=== PATIENT | female | born 1945 | race Caucasian/White ===

== ENCOUNTER 2016-08-16 09:43 | Inpatient (IN) | payer MEDICARE, OTHER ==
[2016-08-16] MEDS ORDERED: ACETAMINOPHEN TAB 500 MG TAB PO STA (09:55)
[2016-08-16] MEDS ORDERED: IPRATROPIUM-ALBUTEROL 3 ML NEB INHALATION STA (09:55)
[2016-08-16] MEDS ORDERED: DILTIAZEM 125 MG in SODIUM CHLORIDE 0.9% 100 ML IV ONE (09:58)
--- NOTE | 2016-08-16 09:58 | ED ---
General Adult HPI - General Chief complaint: Shortness of Breath Stated complaint: MAURICE Time Seen by Provider: 08/16/16 09:51 Source: patient, EMS, RN notes reviewed Mode of arrival: EMS Limitations: no limitations - History of Present Illness Initial comments: Patient is a pleasant 70-year-old female presenting to the emergency department with reported difficulty in breathing. Patient is a poor historian. Patient has no complaints. Patient does admit to coughing somewhat recently. EMS reports patient appeared short of breath and had pulse ox 67% on room air that improve with nebulizer treatment. Unclear if there is a history of atrial fibrillation. - Related Data Home Medications Medication Instructions Recorded Confirmed Cholecalciferol [Vitamin D3] 2,000 unit PO DAILY 08/07/15 08/16/16 Escitalopram [Lexapro] 20 mg PO HS 08/07/15 08/16/16 Furosemide [Lasix] 40 mg PO DAILY 08/07/15 08/16/16 Oxybutynin Chloride [Ditropan] 5 mg PO TID@0700,1500,2300 08/07/15 08/16/16 Simvastatin [Zocor] 80 mg PO HS 08/07/15 08/16/16 Nystatin 100,000 Unit/gm Powd 1 applic TOPICAL BID PRN 08/16/16 08/16/16 [Mycostatin Powder] Robafen Dm Liquid 5 - 10 ml PO Q6H PRN 08/16/16 08/16/16 risperiDONE [RisperDAL] 2 mg PO HS 08/16/16 08/16/16 Allergies Allergy/AdvReac Type Severity Reaction Status Date / Time No Known Allergies Allergy Verified 08/07/15 18:17 Review of Systems ROS Statement: Those systems with pertinent positive or pertinent negative responses have been documented in the HPI. ROS Other: All systems not noted in ROS Statement are negative. Constitutional: Denies: fever, chills Eyes: Denies: eye pain ENT: Denies: ear pain Respiratory: Reports: cough. Denies: dyspnea Cardiovascular: Denies: chest pain Endocrine: Denies: fatigue Gastrointestinal: Denies: abdominal pain Genitourinary: Denies: dysuria Musculoskeletal: Denies: back pain Skin: Denies: rash Neurological: Denies: headache Past Medical History Past Medical History: Hyperlipidemia History of Any Multi-Drug Resistant Organisms: None Reported Past Surgical History: No Surgical Hx Reported Past Psychological History: Depression Smoking Status: Current every day smoker Past Alcohol Use History: None Reported Past Drug Use History: None Reported General Exam Limitations: no limitations General appearance: alert, in no apparent distress Head exam: Present: atraumatic Eye exam: Present: normal appearance, PERRL ENT exam: Present: normal oropharynx Neck exam: Present: normal inspection Respiratory exam: Present: wheezes, rales Cardiovascular Exam: Present: tachycardia, irregular rhythm GI/Abdominal exam: Present: soft. Absent: tenderness Extremities exam: Present: pedal edema. Absent: calf tenderness Neurological exam: Present: alert, oriented X3. Absent: motor sensory deficit Expanded Patient oriented to: Present: person, place, time Motor strength exam: RUE: 5, LUE: 5, RLE: 5, LLE: 5 Psychiatric exam: Present: normal affect, normal mood Skin exam: Absent: rash Course Vital Signs 08/16/16 08/16/16 08/16/16 09:49 10:38 10:43 Temperature 97.0 F L 101.3 F H Pulse Rate 66 135 H 100 Respiratory 20 20 Rate Blood Pressure 200/112 O2 Sat by Pulse 77 L Oximetry 08/16/16 08/16/16 08/16/16 10:51 11:13 12:00 Temperature 99.5 F Pulse Rate 134 H 113 H 108 H Respiratory 20 20 Rate Blood Pressure 150/90 111/48 O2 Sat by Pulse 90 L 88 L Oximetry EKG Findings - EKG Comments: EKG Findings:: A. fib with RVR, rate 133. QRS 72. QT to 92. QTC 434. Right axis. Septal Q waves. Low QRS voltage. No acute ST change. Medical Decision Making - Medical Decision Making Patient reexamined and updated. Patient clinically is felt more have pneumonia over CHF especially with elevated temperature. Case was discussed in detail with Dr. greer, who will admit for hospital call. Patient does meet sepsis criteria. Admission orders written. IV antibiotics started. - Lab Data Result diagrams: 08/16/16 10:00 08/16/16 10:00 Lab Results 08/16/16 08/16/16 08/16/16 Range/Units 10:00 10:00 10:00 WBC 5.1 (3.8-10.6) k/uL RBC 5.72 H (3.80-5.40) m/uL Hgb 18.0 H (11.4-16.0) gm/dL Hct 57.1 H (34.0-46.0) % MCV 99.8 (80.0-100.0) fL MCH 31.5 (25.0-35.0) pg MCHC 31.6 (31.0-37.0) g/dL RDW 14.0 (11.5-15.5) % Plt Count 146 L (150-450) k/uL Neutrophils % 82 % Lymphocytes % 8 % Monocytes % 7 % Eosinophils % 1 % Basophils % 2 % Neutrophils # 4.2 (1.3-7.7) k/uL Lymphocytes # 0.4 L (1.0-4.8) k/uL Monocytes # 0.3 (0-1.0) k/uL Eosinophils # 0.0 (0-0.7) k/uL Basophils # 0.1 (0-0.2) k/uL Hypochromasia Slight PT (9.0-12.0) sec INR (<1.1) APTT (22.0-30.0) sec Sodium 138 (137-145) mmol/L Potassium 4.5 (3.5-5.1) mmol/L Chloride 100 (98-107) mmol/L Carbon Dioxide 31 H (22-30) mmol/L Anion Gap 7 mmol/L BUN 20 H (7-17) mg/dL Creatinine 0.66 (0.52-1.04) mg/dL Est GFR (MDRD) Af Amer >60 (>60 ml/min/1.73 sqM) Est GFR (MDRD) Non-Af >60 (>60 ml/min/1.73 sqM) Glucose 119 H (74-99) mg/dL Plasma Lactic Acid Raphael (0.7-2.0) mmol/L Calcium 8.0 L (8.4-10.2) mg/dL Total Bilirubin 0.9 (0.2-1.3) mg/dL AST 105 H (14-36) U/L ALT 125 H (9-52) U/L Alkaline Phosphatase 76 (38-126) U/L Total Creatine Kinase 92 (30-135) U/L CK-MB (CK-2) 1.7 (0.0-2.4) ng/mL CK-MB (CK-2) Rel Index 1.8 Troponin I 0.029 (0.000-0.034) ng/mL NT-Pro-B Natriuret Pep pg/mL Total Protein 6.1 L (6.3-8.2) g/dL Albumin 3.4 L (3.5-5.0) g/dL Influenza Type A RNA (Not Detectd) Influenza Type B (PCR) (Not Detectd) 08/16/16 08/16/16 08/16/16 Range/Units 10:00 10:00 10:30 WBC (3.8-10.6) k/uL RBC (3.80-5.40) m/uL Hgb (11.4-16.0) gm/dL Hct (34.0-46.0) % MCV (80.0-100.0) fL MCH (25.0-35.0) pg MCHC (31.0-37.0) g/dL RDW (11.5-15.5) % Plt Count (150-450) k/uL Neutrophils % % Lymphocytes % % Monocytes % % Eosinophils % % Basophils % % Neutrophils # (1.3-7.7) k/uL Lymphocytes # (1.0-4.8) k/uL Monocytes # (0-1.0) k/uL Eosinophils # (0-0.7) k/uL Basophils # (0-0.2) k/uL Hypochromasia PT (9.0-12.0) sec INR (<1.1) APTT (22.0-30.0) sec Sodium (137-145) mmol/L Potassium (3.5-5.1) mmol/L Chloride (98-107) mmol/L Carbon Dioxide (22-30) mmol/L Anion Gap mmol/L BUN (7-17) mg/dL Creatinine (0.52-1.04) mg/dL Est GFR (MDRD) Af Amer (>60 ml/min/1.73 sqM) Est GFR (MDRD) Non-Af (>60 ml/min/1.73 sqM) Glucose (74-99) mg/dL Plasma Lactic Acid Raphael 1.2 (0.7-2.0) mmol/L Calcium (8.4-10.2) mg/dL Total Bilirubin (0.2-1.3) mg/dL AST (14-36) U/L ALT (9-52) U/L Alkaline Phosphatase (38-126) U/L Total Creatine Kinase (30-135) U/L CK-MB (CK-2) (0.0-2.4) ng/mL CK-MB (CK-2) Rel Index Troponin I (0.000-0.034) ng/mL NT-Pro-B Natriuret Pep 2070 pg/mL Total Protein (6.3-8.2) g/dL Albumin (3.5-5.0) g/dL Influenza Type A RNA Not Detected (Not Detectd) Influenza Type B (PCR) Not Detected (Not Detectd) 08/16/16 Range/Units 11:14 WBC (3.8-10.6) k/uL RBC (3.80-5.40) m/uL Hgb (11.4-16.0) gm/dL Hct (34.0-46.0) % MCV (80.0-100.0) fL MCH (25.0-35.0) pg MCHC (31.0-37.0) g/dL RDW (11.5-15.5) % Plt Count (150-450) k/uL Neutrophils % % Lymphocytes % % Monocytes % % Eosinophils % % Basophils % % Neutrophils # (1.3-7.7) k/uL Lymphocytes # (1.0-4.8) k/uL Monocytes # (0-1.0) k/uL Eosinophils # (0-0.7) k/uL Basophils # (0-0.2) k/uL Hypochromasia PT 12.1 H (9.0-12.0) sec INR 1.2 (<1.1) APTT 23.6 (22.0-30.0) sec Sodium (137-145) mmol/L Potassium (3.5-5.1) mmol/L Chloride (98-107) mmol/L Carbon Dioxide (22-30) mmol/L Anion Gap mmol/L BUN (7-17) mg/dL Creatinine (0.52-1.04) mg/dL Est GFR (MDRD) Af Amer (>60 ml/min/1.73 sqM) Est GFR (MDRD) Non-Af (>60 ml/min/1.73 sqM) Glucose (74-99) mg/dL Plasma Lactic Acid Raphael (0.7-2.0) mmol/L Calcium (8.4-10.2) mg/dL Total Bilirubin (0.2-1.3) mg/dL AST (14-36) U/L ALT (9-52) U/L Alkaline Phosphatase (38-126) U/L Total Creatine Kinase (30-135) U/L CK-MB (CK-2) (0.0-2.4) ng/mL CK-MB (CK-2) Rel Index Troponin I (0.000-0.034) ng/mL NT-Pro-B Natriuret Pep pg/mL Total Protein (6.3-8.2) g/dL Albumin (3.5-5.0) g/dL Influenza Type A RNA (Not Detectd) Influenza Type B (PCR) (Not Detectd) - Radiology Data Radiology results: image reviewed (Citrate has interstitial changes, more so on the right side) Critical Care Time Critical Care Time: Yes Total Critical Care Time: 32 Disposition Clinical Impression: Pneumonia, Sepsis Disposition: ADMITTED IP TO THIS HOSP Condition: Serious Time of Disposition: 12:16
[2016-08-16 10:13] LABS: Basophils # (A) 0.1 k/uL (0-0.2); Basophils % (A) 2 %; CH 31.5; CHCM 31.8; Eosinophils % (A) 1 %; HCT 57.1 % (34.0-46.0); HDW 2.71; Hypochromasia Slight; Luc # (Auto) 0.07; Luc % (Auto) 1; Lymphocytes # (A) 0.4 k/uL (1.0-4.8); Lymphocytes % (A) 8 %; MCH 31.5 pg (25.0-35.0); MCHC 31.6 g/dL (31.0-37.0); MCV 99.8 fL (80.0-100.0); Mean Platelet Volume 7.7; Monocytes # (A) 0.3 k/uL (0-1.0); Monocytes % (A) 7 %; Neutrophils # (A) 4.2 k/uL (1.3-7.7); Neutrophils % (A) 82 %; RBC 5.72 m/uL (3.80-5.40); WBC 5.1 k/uL (3.8-10.6)
[2016-08-16 10:26] LABS: ALT 125 U/L (9-52); AST 105 U/L (14-36); Alkaline Phosphatase 76 U/L (38-126); Anion Gap 7 mmol/L; Blood Urea Nitrogen 20 mg/dL (7-17); Carbon Dioxide 31 mmol/L (22-30); Chloride 100 mmol/L (98-107); Glucose 119 mg/dL (74-99); Non-African American GFR(MDRD) >60 (>60 ml/min/1.73 sqM); Sodium 138 mmol/L (137-145); Total Bilirubin 0.9 mg/dL (0.2-1.3); Total Protein 6.1 g/dL (6.3-8.2)
[2016-08-16 10:34] LABS: Potassium 4.5 mmol/L (3.5-5.1)
--- NOTE | 2016-08-16 10:34 | XR ---
EXAMINATION TYPE: XR chest 2V DATE OF EXAM: 08/16/2016 10:29 AM COMPARISON: 09/28/2011 HISTORY: Shortness of breath FINDINGS: Noted is pulmonary venous congestion with scattered infiltrates. There is also cardiomegaly and small effusions. IMPRESSION: Findings felt to reflect congestive failure. Infiltrates of other etiology are not excluded. Clinical correlation and progress studies are recommended.
[2016-08-16 10:49] LABS: Creatine Kinase MB 1.7 ng/mL (0.0-2.4); Troponin I 0.029 ng/mL (0.000-0.034)
[2016-08-16 11:55] LABS: INR 1.2 (<1.1); Prothrombin Time 12.1 sec (9.0-12.0)
[2016-08-16 11:56] LABS: Partial Thromboplastin Time 23.6 sec (22.0-30.0)
[2016-08-16] MEDS ORDERED: IPRATROPIUM-ALBUTEROL 3 ML NEB INHALATION PRN (12:18)
[2016-08-16] MEDS ORDERED: PNEUMONIA PROTOCOL UTILIZED 1 EACH MISC PO PRN (12:18)
[2016-08-16] MEDS ORDERED: AZITHROMYCIN 500 MG in SODIUM CHLORIDE 0.9% 250 ML IVPB STA (12:20)
[2016-08-16 12:48] LABS: Appearance,Urine Clear (Clear); Bilirubin,Urine Negative (Negative); Glucose,Urine (UA) Negative (Negative); Ketones,Urine Negative (Negative); Leukocyte Esterase,Urine Negative (Negative); Mucus,Urine Rare /hpf; Nitrite,Urine Negative (Negative); PH, Urine 5.5 (5.0-8.0); Particle Count 4941; Protein,Urine Trace (Negative); RBC,Urine 1 /hpf (0-5); Specific Gravity,Urine 1.013 (1.001-1.035); Squamous Epithelial Cell,Urine 1 /hpf (0-4); UA Billing (MACRO vs. MICRO) MICRO; WBC,Urine 1 /hpf (0-5)
[2016-08-16] MEDS: IPRATROPIUM-ALBUTEROL 3 ML NEB INHALATION SCH ×2 (15:09→19:49)
[2016-08-16 15:35] LABS: ABG HCO3 29 mmol/L (21-25); ABG PCO2 58 mmHg (35-45); ABG PH 7.33 (7.35-7.45); ABG PO2 69 mmHg (83-108); ABG TCO2 31 mmol/L (19-24)
[2016-08-16 15:36] LABS: ABG Base Excess 3.8 mmol/L
[2016-08-16 16:58] LABS: Creatine Kinase MB 1.8 ng/mL (0.0-2.4); Troponin I 0.012 ng/mL (0.000-0.034)
[2016-08-16] MEDS ORDERED: guaiFENesin-DM 100-10MG/5ML 10 ML CUP PO PRN (21:38)
[2016-08-16] MEDS ORDERED: NYSTATIN 100,000 UNIT/GM POWD 15 GM TOPICAL PRN (21:38)
[2016-08-16] MEDS: ENOXAPARIN 100 MG/ML SYRINGE SQ SCH (21:41)
[2016-08-16 22:04] LABS: Creatine Kinase MB 2.1 ng/mL (0.0-2.4); Troponin I 0.012 ng/mL (0.000-0.034)
[2016-08-17] MEDS ORDERED: ACETAMINOPHEN IV (For NPO) 1,000 MG in EMPTY BAG 1 BAG IVPB SCH
[2016-08-17] MEDS: METOPROLOL TARTRATE 25 MG TAB PO SCH ×3 (01:06→19:49)
[2016-08-17] MEDS: DILTIAZEM 125 MG in SODIUM CHLORIDE 0.9% 100 ML IV SCH ×2 (01:06→14:26)
[2016-08-17] MEDS ORDERED: FUROSEMIDE 10 MG/ML 4 ML VIAL IV SCH (02:00)
[2016-08-17] MEDS: OXYBUTYNIN CHLORIDE 5 MG TAB PO SCH ×3 (06:21→19:49)
[2016-08-17] MEDS: IPRATROPIUM-ALBUTEROL 3 ML NEB INHALATION SCH ×6 (07:46→23:24)
[2016-08-17] MEDS ORDERED: ACETAMINOPHEN TAB 325 MG TAB PO PRN (09:10)
[2016-08-17] MEDS: ENOXAPARIN 100 MG/ML SYRINGE SQ SCH ×2 (09:27→19:49)
[2016-08-17] MEDS: AZITHROMYCIN 500 MG TAB PO SCH (09:27)
[2016-08-17] MEDS: CHOLECALCIFEROL 1,000 UNIT TAB PO SCH (09:28)
[2016-08-17] MEDS: FUROSEMIDE 10 MG/ML 4 ML VIAL IV SCH ×3 (09:28→21:55)
--- NOTE | 2016-08-17 11:54 | XR ---
EXAMINATION TYPE: XR chest 1V portable DATE OF EXAM: 08/17/2016 11:24 AM COMPARISON: Prior chest x-ray July HISTORY: Pneumonia TECHNIQUE: Single frontal view of the chest is obtained. FINDINGS: Heart is enlarged. Perihilar airspace disease is present. Prominent lung volume may be ind icative of underlying COPD. No pneumothorax or pleural effusion. There are overlying cardiac leads. IMPRESSION: Findings may represent congestive heart failure rather than pneumonia.
--- NOTE | 2016-08-17 15:14 | P.CRDCN ---
History of Present Illness Consult date: 08/17/16 Requesting physician: Bo Dior Consult reason: atrial fibrillation Chief complaint: Shortness of breath History of present illness: This is a 70-year-old female, most of the history was taken from the medical record as the patient is not able to give a detailed history. She was supposedly brought to the hospital with symptoms of progressively worsening shortness of breath. On EMS arrival patient was found to have an oxygen saturation in the 60s. This seemed to improve after given nebulizers and oxygen. EKG on arrival here showed atrial fibrillation with a rapid ventricular response, occasional PVC. Patient does not appear to have any prior history of atrial fibrillation. For this reason a cardiology consultation was requested. was initiated on IV Cardizem along with subcu Lovenox through the night last night. This morning her heart rate in the 70s, continues to be in A. fib. Blood pressure in the 70-80 systolic range. IV Cardizem has been discontinued. We will give the patient 2 doses of IV Lanoxin and then initiate by mouth Lanoxin from tomorrow. Chest x-ray reveals findings reflect congestive heart failure. Infiltrates not excluded. Laboratory data was reviewed, white blood cell count 5.1, hemoglobin 18.0, d- dimer 0.88. Blood gases PH 7.3, pCO2 58, pO2 69, HCO3 29. Total CO2 31. Sodium 138, potassium 4.5, BUN 20, creatinine 0.6. AST 105, ALT 125, on admission her AST and ALT were normal. Troponins 0.029, 0.012, 0.012. BNP level 2070. TSH 0.721. Influenza A and B-. Patient is currently on IV antibiotics for possible pneumonia. Lovenox. Patient is currently on a BiPAP, sitter is at the bedside. Past Medical History Past Medical History: COPD, Hyperlipidemia Additional Past Medical History / Comment(s): Pt recently admitted 08/07/15 to [facility] with hypokalemia, hypomagnesemia, metabolic encephalopathy. Other HX: anemia, hypoalbuminemia, protein calorie malnutrition, past electrolyte disturbances, 2012 abdominal wall cellulitis. History of Any Multi-Drug Resistant Organisms: None Reported Past Surgical History: Tubal Ligation Past Anesthesia/Blood Transfusion Reactions: No Reported Reaction Past Psychological History: Bipolar, Depression, Schizophrenia Additional Psychological History / Comment(s): Pt resides at [place]. She uses no assistive device. She gets to appts by the [facility] Smoking Status: Current every day smoker Past Alcohol Use History: Rare Additional Past Alcohol Use History / Comment(s): Pt started smoking in 1971 and is a ppd smoker. Past Drug Use History: None Reported - Past Family History Father Family Medical History: No Reported History Additional Family Medical History / Comment(s): Pt remembers her father as being healthy. She states he lived to be quite old but does not recall his age at the time of his . Mother Additional Family Medical History / Comment(s): Pt recalls her mother was obese. Medications and Allergies Home Medications Medication Instructions Recorded Confirmed Type Cholecalciferol [Vitamin D3] 2,000 unit PO DAILY 08/07/15 08/16/16 History Escitalopram [Lexapro] 20 mg PO HS 08/07/15 08/16/16 History Furosemide [Lasix] 40 mg PO DAILY 08/07/15 08/16/16 History Oxybutynin Chloride [Ditropan] 5 mg PO TID@0700,1500,2300 08/07/15 08/16/16 History Simvastatin [Zocor] 80 mg PO HS 08/07/15 08/16/16 History Nystatin 100,000 Unit/gm Powd 1 applic TOPICAL BID PRN 08/16/16 08/16/16 History [Mycostatin Powder] Robafen Dm Liquid 5 - 10 ml PO Q6H PRN 08/16/16 08/16/16 History risperiDONE [RisperDAL] 2 mg PO HS 08/16/16 08/16/16 History Allergies Allergy/AdvReac Type Severity Reaction Status Date / Time No Known Allergies Allergy Verified 08/07/15 18:17 Physical Exam Vitals: Vital Signs Temp Pulse Pulse Resp BP BP BP 08/17/16 13:06 75 08/17/16 12:51 75 08/17/16 11:20 98.0 F 76 19 72/41 91/58 08/17/16 07:58 88 08/17/16 07:51 88 08/17/16 07:50 95 24 140/71 08/17/16 03:03 97.3 F L 79 37 H 113/74 08/17/16 01:13 98 F 08/17/16 00:19 100.2 F H 08/17/16 00:00 101.4 F H 76 31 H 161/65 08/16/16 20:43 98.7 F 137 H 20 169/88 08/16/16 20:00 100 F H 121 H 29 H 144/71 08/16/16 16:00 98.1 F 109 H 21 128/78 08/16/16 15:36 96 08/16/16 15:17 115 H Pulse Ox 08/17/16 13:06 08/17/16 12:51 08/17/16 11:20 93 L 08/17/16 07:58 08/17/16 07:51 08/17/16 07:50 93 L 08/17/16 03:03 91 L 08/17/16 01:13 08/17/16 00:19 08/17/16 00:00 91 L 08/16/16 20:43 93 L 08/16/16 20:00 93 L 08/16/16 16:00 94 L 08/16/16 15:36 08/16/16 15:17 Intake and Output 08/16/16 08/17/16 08/17/16 22:59 06:59 14:59 Intake Total 406.25 560 125 Output Total 50 Balance 356.25 560 125 Intake: IV 40 560 0.9% NS @ 10 80 ACETAMINOPHEN IV (For NPO 400 ) 1,000 mg In Empty Bag 1 bag @ 400 mls/hr IVPB Q6HR [facility] Rx#:[id number] Diltiazem 125 mg In 40 80 Sodium Chloride 0.9% 100 ml @ 5 MG/HR 5 mls/hr IV .Q24H [facility] Rx#:[id number] Intake, IV Titration 366.25 125 Amount Azithromycin 500 mg In 15 Sodium Chloride 0.9% 250 ml @ 125 mls/hr IVPB ONCE [facility] Rx#:[id number] Diltiazem 125 mg In 125 Sodium Chloride 0.9% 100 ml @ 10 MG/HR 10 mls/hr IV .[id number] [facility] Rx#: [id number] Diltiazem 125 mg In 51.25 Sodium Chloride 0.9% 100 ml @ 5 MG/HR 5 mls/hr IV .Q24H [facility] Rx#:[id number] cefTRIAXone 1,000 mg In 250 Sodium Chloride 0.9% 50 ml @ 100 mls/hr IVPB ONCE STA Rx#:[id number] cefTRIAXone 1,000 mg In 50 Sodium Chloride 0.9% 50 ml @ 100 mls/hr IVPB Q24HR [facility] Rx#:[id number] Output: Urine 50 Other: Voiding Method Incontinent Diaper Diaper Incontinent Incontinent # Voids 1 1 Weight 124.5 kg PHYSICAL EXAMINATION: HEENT: [Head is atraumatic, normocephalic. Pupils equal, round. Neck is supple. There is elevated jugular venous pressure.] HEART EXAMINATION: S1 and S2 irregularly irregular systolic murmur is heard. CHEST EXAMINATION: Lungs reveal scattered coarse rhonchi and wheezing throughout. ABDOMEN: [ Soft, obese, nontender. Bowel sounds are heard. No organomegaly noted ]. EXTREMITIES:[ 2+ peripheral pulses with trace evidence of peripheral edema and no calf tenderness noted]. NEUROLOGIC [patient is awake, alert and confused. Results 08/16/16 10:00 08/16/16 10:00 Cardiac Enzymes 08/16/16 08/16/16 Range/Units 15:55 21:21 CK-MB (CK-2) 1.8 2.1 (0.0-2.4) ng/mL Troponin I 0.012 0.012 (0.000-0.034) ng/mL Current Medications Generic Name Dose Route Start Last Admin Trade Name Freq PRN Reason Stop Dose Admin Acetaminophen 650 mg 08/17/16 09:10 08/17/16 09:26 Tylenol Tab PO 650 mg Q6HR PRN Administration Fever and/ or Pain Albuterol/Ipratropium 3 ml 08/16/16 16:00 08/17/16 12:50 Duoneb 0.5 Mg-3 Mg/3 Ml Soln INHALATION 3 ml RT-QID RENE Administration Albuterol/Ipratropium 3 ml 08/16/16 12:18 08/16/16 13:17 Duoneb 0.5 Mg-3 Mg/3 Ml Soln INHALATION 3 ml RT-Q4H PRN Administration shortness of breath Atorvastatin Calcium 40 mg 08/17/16 21:00 Lipitor PO HS RENE Azithromycin 500 mg 08/17/16 09:00 08/17/16 09:27 Zithromax PO 500 mg DAILY RENE Administration Cholecalciferol 2,000 unit 08/17/16 12:00 08/17/16 09:28 Vitamin D3 PO 2,000 unit DAILY@1200 RENE Administration Enoxaparin Sodium 100 mg 08/16/16 21:00 08/17/16 09:27 Lovenox SQ 100 mg Q12HR RENE Administration Furosemide 40 mg 08/17/16 10:00 08/17/16 09:28 Lasix IV 40 mg Q6H RENE Administration Guaifenesin/Dextromethorphan 5 ml 08/16/16 21:38 Robitussin Dm PO Q6H PRN Cough Ceftriaxone Sodium 1,000 mg/ 50 mls @ 100 mls/hr 08/17/16 12:00 08/17/16 14: 04 Sodium Chloride IVPB 08/20/16 12:01 100 mls/hr Q24HR RENE Administration Metoprolol Tartrate 25 mg 08/17/16 01:02 08/17/16 09:27 Lopressor PO 25 mg BID RENE Administration Miscellaneous Information 1 each 08/16/16 12:18 Pneumonia Protocol Utilized PO ONCE PRN Per Protocol Nystatin 1 applic 08/16/16 21:38 Mycostatin Powder TOPICAL BID PRN Rash Oxybutynin Chloride 5 mg 08/17/16 07:00 08/17/16 06:21 Ditropan PO 5 mg TID@0700,1500,2300 RENE Administration Sodium Chloride 10 ml 08/16/16 21:00 08/17/16 09:28 Saline Flush IV Not Given BID RENE Intake and Output 08/16/16 08/17/16 08/17/16 22:59 06:59 14:59 Intake Total 406.25 560 125 Output Total 50 Balance 356.25 560 125 Intake: IV 40 560 0.9% NS @ 10 80 ACETAMINOPHEN IV (For NPO 400 ) 1,000 mg In Empty Bag 1 bag @ 400 mls/hr IVPB Q6HR [facility] Rx#:[id number] Diltiazem 125 mg In 40 80 Sodium Chloride 0.9% 100 ml @ 5 MG/HR 5 mls/hr IV .Q24H [facility] Rx#:[id number] Intake, IV Titration 366.25 125 Amount Azithromycin 500 mg In 15 Sodium Chloride 0.9% 250 ml @ 125 mls/hr IVPB ONCE ST[facility] Rx#:[id number] Diltiazem 125 mg In 125 Sodium Chloride 0.9% 100 ml @ 10 MG/HR 10 mls/hr IV .[id number] [facility] Rx#: [id number] Diltiazem 125 mg In 51.25 Sodium Chloride 0.9% 100 ml @ 5 MG/HR 5 mls/hr IV .Q24H [facility] Rx#:[id number] cefTRIAXone 1,000 mg In 250 Sodium Chloride 0.9% 50 ml @ 100 mls/hr IVPB ONCE STA Rx#:[id number] cefTRIAXone 1,000 mg In 50 Sodium Chloride 0.9% 50 ml @ 100 mls/hr IVPB Q24HR [facility] Rx#:[id number] Output: Urine 50 Other: Voiding Method Incontinent Diaper Diaper Incontinent Incontinent # Voids 1 1 Weight 124.5 kg EKG Interpretations (text) EKG shows atrial fibrillation with a rapid ventricular response. Assessment and Plan Plan: Assessment and plan #1 respiratory failure likely a combination of COPD, possible pneumonia. Mild congestive cardiac failure, unsure of LV function. #2 atrial fibrillation, appears to be of new onset. Currently on Lovenox. #3 history of COPD #4 hyperlipidemia #5 chronic depression #6 nicotine dependence #7 hypotension Plan We will obtain an echocardiogram with Doppler study. We will also check a free T4 and TSH level. Discontinue IV Cardizem. We will give the patient doses of IV Lanoxin, and from tomorrow started on oral Lanoxin. Continue beta rhett. Evaluate for one of the newer anticoagulants. Further recommendations to follow. DNP note has been reviewed, I agree with a documented findings and plan of care. Patient was seen and examined.
--- NOTE | 2016-08-17 17:02 | P.CNPUL ---
History of Present Illness Consult date: 08/17/16 Requesting physician: Bo Dior Reason for consult: dyspnea Chief complaint: Shortness of breath. History of present illness: This is a pleasant 70-year-old female patient who resides in an adult foster care setting. She herself is a poor historian. She was brought to the emergency room via EMS after having complaints of increasing shortness of breath and difficulty breathing. Upon arrival she did have a pulse oximeter reading of 67% on room air. She was given bronchodilators and updraft treatmentsshe herself is a poor historian. She does have a history of hyperlipidemia, depression and chronic and ongoing tobacco dependence. No documented history of chronic obstructive pulmonary disease. Her EKG revealed evidence of atrial fibrillation possibly new. Her chest x-ray revealed some perihilar airspace disease along with suspicion of underlying COPD. There is also some vascular congestion and suspected congestive heart failure. Arterial blood gases on 50% FiO2 revealed a PaO2 of 69, pCO2 58, pH 7.33. Her troponins were negative.No leukocytosis.ProBNP 2070. Her liver enzymes are elevated AST 105, ALT 125. Iinfluenza screen is negative. Review of Systems ROS unobtainable: due to mental status Past Medical History Past Medical History: COPD, Hyperlipidemia Additional Past Medical History / Comment(s): Pt recently admitted 08/07/15 to [facility] with hypokalemia, hypomagnesemia, metabolic encephalopathy. Other HX: anemia, hypoalbuminemia, protein calorie malnutrition, past electrolyte disturbances, 2012 abdominal wall cellulitis. History of Any Multi-Drug Resistant Organisms: None Reported Past Surgical History: Tubal Ligation Past Anesthesia/Blood Transfusion Reactions: No Reported Reaction Past Psychological History: Bipolar, Depression, Schizophrenia Additional Psychological History / Comment(s): Pt resides at [place]. She uses no assistive device. She gets to [facility] the [facility] Smoking Status: Current every day smoker Past Alcohol Use History: Rare Additional Past Alcohol Use History / Comment(s): Pt started smoking in 1971 and is a ppd smoker. Past Drug Use History: None Reported - Past Family History Father Family Medical History: No Reported History Additional Family Medical History / Comment(s): Pt remembers her father as being healthy. She states he lived to be quite old but does not recall his age at the time of his . Mother Additional Family Medical History / Comment(s): Pt recalls her mother was obese. Medications and Allergies Home Medications Medication Instructions Recorded Confirmed Type Cholecalciferol [Vitamin D3] 2,000 unit PO DAILY 08/07/15 08/16/16 History Escitalopram [Lexapro] 20 mg PO HS 08/07/15 08/16/16 History Furosemide [Lasix] 40 mg PO DAILY 08/07/15 08/16/16 History Oxybutynin Chloride [Ditropan] 5 mg PO TID@0700,1500,2300 08/07/15 08/16/16 History Simvastatin [Zocor] 80 mg PO HS 08/07/15 08/16/16 History Nystatin 100,000 Unit/gm Powd 1 applic TOPICAL BID PRN 08/16/16 08/16/16 History [Mycostatin Powder] Robafen Dm Liquid 5 - 10 ml PO Q6H PRN 08/16/16 08/16/16 History risperiDONE [RisperDAL] 2 mg PO HS 08/16/16 08/16/16 History Allergies Allergy/AdvReac Type Severity Reaction Status Date / Time No Known Allergies Allergy Verified 08/07/15 18:17 Physical Exam Vitals: Vital Signs Temp Pulse Pulse Resp BP BP BP 08/17/16 16:03 76 08/17/16 15:38 76 08/17/16 13:06 75 08/17/16 12:51 75 08/17/16 11:20 98.0 F 76 19 72/41 91/58 08/17/16 07:58 88 08/17/16 07:51 88 08/17/16 07:50 95 24 140/71 08/17/16 03:03 97.3 F L 79 37 H 113/74 08/17/16 01:13 98 F 08/17/16 00:19 100.2 F H 08/17/16 00:00 101.4 F H 76 31 H 161/65 08/16/16 20:43 98.7 F 137 H 20 169/88 08/16/16 20:00 100 F H 121 H 29 H 144/71 Pulse Ox 08/17/16 16:03 08/17/16 15:38 08/17/16 13:06 08/17/16 12:51 08/17/16 11:20 93 L 08/17/16 07:58 04/20/17 07:51 08/17/16 07:50 93 L 08/17/16 03:03 91 L 08/17/16 01:13 08/17/16 00:19 08/17/16 00:00 91 L 08/16/16 20:43 93 L 08/16/16 20:00 93 L Intake and Output 08/17/16 08/17/16 08/17/16 06:59 14:59 22:59 Intake Total 560 125 Balance 560 125 Intake: IV 560 0.9% NS @ 10 80 ACETAMINOPHEN IV (For NPO 400 ) 1,000 mg In Empty Bag 1 bag @ 400 mls/hr IVPB Q6HR [facility] Rx#:[id number] Diltiazem 125 mg In 80 Sodium Chloride 0.9% 100 ml @ 5 MG/HR 5 mls/hr IV .Q24H [facility] Rx#:[id number] Intake, IV Titration 125 Amount Diltiazem 125 mg In 125 Sodium Chloride 0.9% 100 ml @ 10 MG/HR 10 mls/hr IV .[id number] [facility] Rx#: [id number] Other: Voiding Method Diaper Diaper Incontinent Incontinent # Voids 1 Weight 124.5 kg GENERAL EXAM: Alert, comfortable in no apparent distress. HEAD: Normocephalic. EYES: Normal reaction of pupils, equal size. NOSE: Clear with pink turbinates. THROAT: No erythema or exudates. NECK: No masses, no JVD. CHEST: No chest wall deformity. LUNGS: Equal air entry with HEENT crackles in the posterior bases.. CVS: S1 and S2 normal with no audible murmurs, irregular rhythm. ABDOMEN: Obese, soft, normal bowel sounds, no guarding or rigidity. Extremities: There is trace peripheral edema. No clubbing, no cyanosis. Peripheral pulses are intact. Results - Laboratory Findings CBC and BMP: 08/16/16 10:00 08/16/16 10:00 ABG ABG pH 7.33 (7.35-7.45) L 08/16/16 15:19 ABG pCO2 58 mmHg (35-45) H 08/16/16 15:19 ABG pO2 69 mmHg (83-108) L 08/16/16 15:19 ABG O2 Saturation 92.0 % (94-97) L 08/16/16 15:19 PT/INR, D-dimer PT 12.1 sec (9.0-12.0) H 08/16/16 11:14 INR 1.2 (<1.1) 08/16/16 11:14 D-Dimer 0.88 mg/L FEU (<0.60) H 08/16/16 21:42 Abnormal lab findings: Abnormal Labs 08/16/16 08/16/16 08/16/16 12:19 15:19 21:42 D-Dimer 0.88 H ABG pH 7.33 L ABG pCO2 58 H ABG pO2 69 L ABG HCO3 29 H ABG Total CO2 31 H ABG O2 Saturation 92.0 L Urine Protein Trace H Urine Blood Trace H Hyaline Casts 4 H Urine Mucus Rare H - Diagnostic Findings Chest x-ray: image reviewed Assessment and Plan Plan: impression: #1 Acute hypoxic respiratory failure secondary to suspected diastolic congestive heart failure, possible community-acquired pneumonia, suspect acute exacerbation of chronic obstructive pulmonary disease, chronic and ongoing tobacco dependence. #2 Chronic and ongoing tobacco dependence. #3 Acute on chronic hypercapnic respiratory failure secondary to suspected obesity/hypoventilation syndrome versus obstructive sleep apnea. #4 Morbid obesity. #5 History of depression. #6 Hyperlipidemia. #7 Atrial fibrillation, possibly new onset. Plan: The patient was seen and evaluated by Dr. Cruz. Her chest x-ray and labs were reviewed. We do suspect some component of both acute hypoxic respiratory failure and hypercapnic respiratory failure. we will continue with bronchodilators, Pulmicort inhalations, antibiotics in the form of ceftriaxone and azithromycin. She is on Lovenox for DVT prophylaxis. continue IV Lasix. She would benefit from a follow-up in our office for full pulmonary function testing to evaluate the severity of her suspected COPD and would also benefit from an outpatient sleep study to determine if there is any significant obstructive sleep apnea especially in regards to her atrial fibrillation. Echocardiogram is pending. We will continue to follow make further recommendations based on her clinical status. Time with Patient: Greater than 30
[2016-08-17] MEDS: BUDESONIDE 1 MG/2 ML NEBU INHALATION SCH (19:08)
[2016-08-17] MEDS: ATORVASTATIN 40 MG TAB PO SCH (19:49)
--- NOTE | 2016-08-17 21:34 | HP ---
DATE OF ADMISSION: 08/16/2016 PRESENTING COMPLAINT: Short of breath. HISTORY OF PRESENTING COMPLAINT: This is a 70-year-old patient who is followed by Dr. Jero Mercado, [facility]. Patient is a resident of [place]. She is a smoker. Patient's chronic medical conditions include anemia, hyperlipidemia, some arthritis. Patient came into the ER with difficulty in breathing, got a BiPAP. Not able to speak much. Has got a cough. Not really bringing anything up. Initially pulse ox was down to 67%. Patient was found to be in atrial fibrillation with rapid ventricular rate in the ER. She was started on Lovenox and IV Cardizem. She was also felt to be in CHF and was started on IV Lasix. Patient is very short of breath, on a BiPAP; not able to give much of a history. REVIEW OF SYSTEMS: CONSTITUTIONAL: Weak and tired. HEENT: Nasal congestion. RESPIRATORY: As above, cough, very short of breath. CARDIOVASCULAR: No chest pain. GASTROINTESTINAL: None. GENITOURINARY: None. MUSCULOSKELETAL: Some pain in the joints. DERMATOLOGICAL: None. HEMATOLOGICAL: None. LYMPHATICS: None. PSYCHIATRY: Anxiety. NEUROLOGICAL: None. PAST MEDICAL HISTORY: COPD, hyperlipidemia. PAST SURGICAL HISTORY: Tubal ligation. PAST PSYCHIATRIC HISTORY: Schizophrenia, bipolar. SOCIAL HISTORY: Patient is a resident of [place]. Goes to appointments using [employer]. Has been smoking a pack a day since 1971. Alcohol rarely. FAMILY HISTORY: Reviewed; noncontributory to presentation. HOME MEDICATIONS: 1. Robafen DM liquid 5 to 10 mL q.6 p.r.n. 2. Mycostatin topically b.i.d. p.r.n. 3. Risperdal 2 mg p.o. at bedtime. 4. Zocor 80 mg at bedtime. 5. Vitamin D3 2000 units p.o. daily. 6. Ditropan 5 mg p.o. t.i.d. 7. Lasix 40 mg p.o. daily. 8. Lexapro 20 mg p.o. at bedtime. ALLERGIES: NONE. PHYSICAL EXAMINATION: VITAL SIGNS ON PRESENTATION: T-max 101.3, pulse 134, respiration 20, blood pressure 150/98, pulse ox down to 77% on 2 L. GENERAL APPEARANCE: Obese; BMI if 47.1. Sitting up. Very short of breath on a BiPAP. EYES: Pupils equal. Conjunctivae normal. HEENT: External appearance of nose and ears normal. Oral cavity with dry mucous membrane. NECK: JVD unable to assess. Mass not palpable. RESPIRATORY: Effort increased. Accessory muscles are working. Patient is not able to speak in full sentences. LUNGS: Poor air entry. Prolonged expiration. Scattered crackles. CARDIOVASCULAR: Heart sounds irregular. No edema. ABDOMEN: Distended, soft. Liver and spleen not palpable. LYMPHATIC: No lymph node palpable in neck or axillae. PSYCHIATRY: Patient is anxious-appearing. NEUROLOGICAL: Pupils equal. No facial asymmetry. Moving all 4 limbs. INVESTIGATIONS: White count 5.1, hemoglobin 18. Potassium 4.5. BUN 20, creatinine 0.66. AST 105, ALT 125. Influenza A and B negative. Chest x-ray may show fluid infiltrate, both. ASSESSMENT: 1. Bilateral pneumonia, multi-lobar; suspect Gram-negative organism causing severe sepsis-like picture on presentation with acute hypoxic respiratory failure. 2. Acute chronic obstructive pulmonary disease, severe exacerbation, in a current smoker. 3. Chronic nicotine dependence. 4. Acute metabolic encephalopathy from sepsis. 5. Morbid obesity; body mass index of 47.1. 6. Atrial fibrillation with rapid ventricular rate. PLAN: Patient was started on DuoNeb and IV Solu-Medrol. Also added Lovenox for atrial fibrillation and antibiotics Zithromax and ceftriaxone. BiPAP for oxygen support. Consultations to Cardiology and Pulmonary are done. Overall prognosis is guarded. Patient also given a nicotine patch.
[2016-08-18] MEDS: FUROSEMIDE 10 MG/ML 4 ML VIAL IV SCH ×4 (02:53→21:28)
[2016-08-18] MEDS: IPRATROPIUM-ALBUTEROL 3 ML NEB INHALATION SCH ×6 (03:26→22:31)
[2016-08-18] MEDS: OXYBUTYNIN CHLORIDE 5 MG TAB PO SCH ×3 (06:38→23:45)
[2016-08-18 06:42] LABS: Anion Gap 6 mmol/L; Blood Urea Nitrogen 20 mg/dL (7-17); Calcium 7.9 mg/dL (8.4-10.2); Carbon Dioxide 37 mmol/L (22-30); Chloride 95 mmol/L (98-107); Glucose 84 mg/dL (74-99); Non-African American GFR(MDRD) >60 (>60 ml/min/1.73 sqM); Potassium 4.4 mmol/L (3.5-5.1); Sodium 138 mmol/L (137-145)
[2016-08-18 06:55] LABS: Basophils % (A) 1 %; CH 30.6; CHCM 31.6; Eosinophils % (A) 0 %; HDW 2.82; HGB 17.4 gm/dL (11.4-16.0); Hypochromasia Slight; Luc # (Auto) 0.08; Luc % (Auto) 2; Lymphocytes # (A) 0.6 k/uL (1.0-4.8); Lymphocytes % (A) 15 %; MCH 30.9 pg (25.0-35.0); MCHC 31.7 g/dL (31.0-37.0); MCV 97.7 fL (80.0-100.0); Mean Platelet Volume 7.5; Monocytes # (A) 0.3 k/uL (0-1.0); Monocytes % (A) 7 %; Neutrophils # (A) 2.8 k/uL (1.3-7.7); Neutrophils % (A) 76 %; RBC 5.63 m/uL (3.80-5.40); RDW 13.7 % (11.5-15.5); WBC 3.7 k/uL (3.8-10.6)
[2016-08-18] MEDS: BUDESONIDE 1 MG/2 ML NEBU INHALATION SCH ×2 (09:20→20:37)
[2016-08-18] MEDS: ENOXAPARIN 100 MG/ML SYRINGE SQ SCH ×2 (09:24→21:28)
[2016-08-18] MEDS: AZITHROMYCIN 500 MG TAB PO SCH (09:24)
[2016-08-18] MEDS: CHOLECALCIFEROL 1,000 UNIT TAB PO SCH (13:14)
[2016-08-18] MEDS: METOPROLOL TARTRATE 25 MG TAB PO SCH ×2 (13:14→21:27)
--- NOTE | 2016-08-18 13:48 | P.PN ---
Subjective This is a pleasant 70-year-old female patient who resides in an adult foster care setting. She herself is a poor historian. She was brought to the emergency room via EMS after having complaints of increasing shortness of breath and difficulty breathing. Upon arrival she did have a pulse oximeter reading of 67% on room air. She was given bronchodilators and updraft treatmentsshe herself is a poor historian. She does have a history of hyperlipidemia, depression and chronic and ongoing tobacco dependence. No documented history of chronic obstructive pulmonary disease. Her EKG revealed evidence of atrial fibrillation possibly new. Her chest x-ray revealed some perihilar airspace disease along with suspicion of underlying COPD. There is also some vascular congestion and suspected congestive heart failure. Arterial blood gases on 50% FiO2 revealed a PaO2 of 69, pCO2 58, pH 7.33. Her troponins were negative. No leukocytosis. ProBNP 0. Her liver enzymes are elevated AST 105, ALT 125. Iinfluenza screen is negative. The patient is seen again today 08/18/2016 in follow-up on the selective care unit. She is awake. She is continued on her BiPAP. She continues to be diuresed. Unsure if in a negative balance of the patient is incontinent of urine. Urine and blood cultures revealed no growth. Currently afebrile. No leukocytosis. Objective - Vital Signs Vital signs: Vital Signs Temp 98.7 F 08/18/16 11:51 Pulse 106 H 08/18/16 12:15 Resp 22 08/18/16 11:55 BP 135/64 08/18/16 11:51 Pulse Ox 92 L 08/18/16 11:51 Intake & Output 08/17/16 08/18/16 08/18/16 18:59 06:59 18:59 Intake Total 125 1747 377 Balance 125 1747 377 Weight 117.5 kg 117.5 kg Intake: IV 210 0.9% NS @ 10 160 cefTRIAXone 1,000 mg In 50 Sodium Chloride 0.9% 50 ml @ 100 mls/hr IVPB Q24HR [facility] Rx#:[id number] Intake, IV Titration 125 Amount Diltiazem 125 mg In 125 Sodium Chloride 0.9% 100 ml @ 10 MG/HR 10 mls/hr IV .[id number] [facility] Rx#: [id number] Oral [id number] Other: Voiding Method Diaper Diaper Diaper Incontinent Incontinent Incontinent # Voids 1 1 3 - Exam GENERAL EXAM: Alert, comfortable in no apparent distress. HEAD: Normocephalic. EYES: Normal reaction of pupils, equal size. NOSE: Clear with pink turbinates. THROAT: No erythema or exudates. NECK: No masses, no JVD. CHEST: No chest wall deformity. LUNGS: Equal air entry with HEENT crackles in the posterior bases.. CVS: S1 and S2 normal with no audible murmurs, irregular rhythm. ABDOMEN: Obese, soft, normal bowel sounds, no guarding or rigidity. Extremities: There is trace peripheral edema. No clubbing, no cyanosis. Peripheral pulses are intact. - Labs CBC & Chem 7: 08/18/16 05:54 08/18/16 05:54 Labs: Abnormal Lab Results - Last 24 Hours (Table) 08/18/16 08/18/16 Range/Units 05:54 05:54 WBC 3.7 L (3.8-10.6) k/uL RBC 5.63 H (3.80-5.40) m/uL Hgb 17.4 H (11.4-16.0) gm/dL Hct 55.0 H (34.0-46.0) % Plt Count 124 L (150-450) k/uL Lymphocytes # 0.6 L (1.0-4.8) k/uL Chloride 95 L (98-107) mmol/L Carbon Dioxide 37 H (22-30) mmol/L BUN 20 H (7-17) mg/dL Calcium 7.9 L (8.4-10.2) mg/dL Microbiology - Last 24 Hours (Table) 08/16/16 12:19 Urine Culture - Final Urine,Voided 08/16/16 14:03 Blood Culture - Preliminary Blood No Growth after 24 hours Assessment and Plan Plan: impression: #1 Acute hypoxic respiratory failure secondary to suspected diastolic congestive heart failure, possible community-acquired pneumonia, suspect acute exacerbation of chronic obstructive pulmonary disease, chronic and ongoing tobacco dependence. #2 Chronic and ongoing tobacco dependence. #3 Acute on chronic hypercapnic respiratory failure secondary to suspected obesity/hypoventilation syndrome versus obstructive sleep apnea. #4 Morbid obesity. #5 History of depression. #6 Hyperlipidemia. #7 Atrial fibrillation, possibly new onset. Plan: The patient was seen and evaluated by Dr. Cruz. We do suspect some component of both acute hypoxic respiratory failure and hypercapnic respiratory failure. we will continue with bronchodilators, Pulmicort inhalations, antibiotics in the form of ceftriaxone and azithromycin. Continue IV Lasix. We will continue to follow and make further recommendations based on her clinical status.
--- NOTE | 2016-08-18 16:10 | P.PN ---
Subjective This is a 70-year-old female who is currently on a BiPAP and most of the history was taken from the medical records as the patient is not able to give a detailed history. Review of systems is also very limited. She was apparently brought to the hospital with symptoms of progressively worsening shortness of breath. Upon arrival via EMS the patient was found to have an oxygen saturation in the 60s which did improve after nebulizers and oxygen. EKG on arrival showed atrial fibrillation with rapid ventricular response and occasional PVC. Patient does not have a prior history to our knowledge of atrial fibrillation. The patient was initiated on IV Cardizem along with subcutaneous Lovenox. IV Cardizem has been discontinued. Patient was given IV digoxin yesterday. Upon examination, patient remains on BiPAP but is able to verbalize that she feels she is breathing a bit better. Objective - Vital Signs Vital signs: Vital Signs Temp 98.7 F 08/18/16 11:51 Pulse 106 H 08/18/16 12:15 Resp 22 08/18/16 11:55 BP 135/64 08/18/16 11:51 Pulse Ox 92 L 08/18/16 11:51 Intake & Output 08/17/16 08/18/16 08/18/16 18:59 06:59 18:59 Intake Total 125 1747 377 Balance 125 1747 377 Weight 117.5 kg 117.5 kg Intake: IV 210 0.9% NS @ 10 160 cefTRIAXone 1,000 mg In 50 Sodium Chloride 0.9% 50 ml @ 100 mls/hr IVPB Q24HR [facility] Rx#:[id number] Intake, IV Titration 125 Amount Diltiazem 125 mg In 125 Sodium Chloride 0.9% 100 ml @ 10 MG/HR 10 mls/hr IV .[id number] [facility] Rx#: [id number] Oral [id number] Other: Voiding Method Diaper Diaper Diaper Incontinent Incontinent Incontinent # Voids 1 1 3 - Exam PHYSICAL EXAMINATION: HEENT: Head is atraumatic, normocephalic. Pupils equal, round. Neck is supple. There is no elevated jugular venous pressure. HEART EXAMINATION: Heart sounds irregularly irregular, S1 and S2 with a systolic murmur. CHEST EXAMINATION: Lungs reveal scattered coarse rhonchi and wheezing throughout. No chest wall tenderness is noted on palpation or with deep breathing. ABDOMEN: Soft, obese, nontender. Bowel sounds are heard. No organomegaly noted. EXTREMITIES: 1+ peripheral pulses with no evidence of peripheral edema and no calf tenderness noted. NEUROLOGIC patient is awake, alert and confused. . - Labs CBC & Chem 7: 08/18/16 05:54 08/18/16 05:54 Labs: Abnormal Lab Results - Last 24 Hours (Table) 08/18/16 08/18/16 Range/Units 05:54 05:54 WBC 3.7 L (3.8-10.6) k/uL RBC 5.63 H (3.80-5.40) m/uL Hgb 17.4 H (11.4-16.0) gm/dL Hct 55.0 H (34.0-46.0) % Plt Count 124 L (150-450) k/uL Lymphocytes # 0.6 L (1.0-4.8) k/uL Chloride 95 L (98-107) mmol/L Carbon Dioxide 37 H (22-30) mmol/L BUN 20 H (7-17) mg/dL Calcium 7.9 L (8.4-10.2) mg/dL Microbiology - Last 24 Hours (Table) 08/16/16 12:19 Urine Culture - Final Urine,Voided 08/16/16 14:03 Blood Culture - Preliminary Blood No Growth after 24 hours Assessment and Plan Plan: #1 respiratory failure likely combination of COPD, possible pneumonia and mild congestive heart failure, LV systolic function and no #2 atrial fibrillation, appears to be new onset, persistent currently on Lovenox #3 COPD #4 hyperlipidemia #5 nicotine dependence #6 hypotension We will obtain a 2-D echo. We will check patient's coverage for one of the newer anticoagulant, if Eliquis is covered will start the patient on 5 mg by mouth twice a day and stop Lovenox. We will initiate the patient on by mouth digoxin. Continue IV Lasix. We will follow the patient's renal function, electrolytes and daily weights. Further recommendations to follow. WATER ANALYST note has been reviewed, I agree with a documented findings and plan of care. Patient was seen and examined.
[2016-08-18] MEDS: DIGOXIN 250 MCG TAB PO SCH (16:12)
--- NOTE | 2016-08-18 18:28 | XR ---
EXAMINATION TYPE: XR chest 1V portable DATE OF EXAM: 08/18/2016 6:22 PM COMPARISON: Yesterday HISTORY: Difficulty breathing TECHNIQUE: Single frontal view of the chest is obtained. FINDINGS: There is pulmonary edema. Heart is enlarged. There are chest leads. IMPRESSION: Congestive heart failure with pulmonary edema. No significant change compared to yesterd ay.
[2016-08-18] MEDS: methylPREDNISolone SOD SUCCI 125 MG/2 ML VIAL IV SCH ×2 (18:29→23:45)
[2016-08-18] MEDS: ATORVASTATIN 40 MG TAB PO SCH (21:27)
--- NOTE | 2016-08-18 21:52 | PN ---
DATE OF SERVICE: 08/18/2016 PRESENTING COMPLAINT: Short of breath. INTERVAL HISTORY: This is a patient with multiple medical problems presented with bilateral pneumonia, acute chronic obstructive pulmonary disease exacerbation, severe hypoxic respiratory failure is pretty much been on BiPAP a bit more responsive and when asked, she does want to eat a little bit. Pretty much has been in bed because of the BiPAP. REVIEW OF SYSTEMS: Difficult to obtain as the patient still is quite a bit short of breath. Current medications are reviewed that include: 1. Duoneb. 2. IV ceftriaxone. 3. IV Lasix. On examination, temperature 97.3, pulse 79, respiratory rate 20, blood pressure 102/71, pulse 94% on BiPAP. GENERAL APPEARANCE: Sitting up, short of breath with BiPAP in place. EYES: Pupils equal. Conjunctivae normal. NECK: JVD unable to assess. Mass not palpable. RESPIRATORY: Effort increased. Accessory muscles are working. LUNGS: Poor air entry. Prolonged expiration. Decreased crackles. CARDIOVASCULAR: Heart sounds irregular. No edema. ABDOMEN: Soft, nontender. Liver and spleen not palpable. PSYCHIATRY: Patient able to answer questions by a few words. INVESTIGATIONS: White count 3.7, hemoglobin 17.4. Potassium 4.4. Blood cultures are pending. ASSESSMENT: 1. Bilateral pneumonia, multilobar, suspect gram-negative organism causing severe sepsis-like present on presentation. 2. Acute hypoxic respiratory failure, slow to respond, the patient requiring a BiPAP. 3. Acute severe chronic obstructive pulmonary disease exacerbation in a current smoker, slow to respond. 4. Chronic nicotine dependence. 5. Acute metabolic encephalopathy from sepsis, slow to respond. 6. Morbid obesity, body mass index of 47.1. 7. Atrial fibrillation with rapid ventricular rate. PLAN: Continue antibiotics. Nebulized bronchodilators. Patient is still chronically ill. We will try to give her some Ensure with a straw. Care was discussed with the nurse.
[2016-08-19] MEDS: IPRATROPIUM-ALBUTEROL 3 ML NEB INHALATION SCH ×6 (02:30→23:36)
[2016-08-19] MEDS: FUROSEMIDE 10 MG/ML 4 ML VIAL IV SCH ×2 (03:43→08:36)
[2016-08-19 06:23] LABS: Glucose,Whole Blood 133 mg/dL (75-99)
[2016-08-19] MEDS: OXYBUTYNIN CHLORIDE 5 MG TAB PO SCH ×3 (07:03→23:09)
[2016-08-19] MEDS: INSULIN LISPRO (humaLOG) 300 UNIT/3 ML VIAL SQ SCH ×4 (07:04→21:30)
[2016-08-19] MEDS: BUDESONIDE 1 MG/2 ML NEBU INHALATION SCH ×2 (08:34→20:00)
[2016-08-19] MEDS: CHOLECALCIFEROL 1,000 UNIT TAB PO SCH (08:36)
[2016-08-19] MEDS: ENOXAPARIN 100 MG/ML SYRINGE SQ SCH (08:36)
[2016-08-19] MEDS: DIGOXIN 250 MCG TAB PO SCH (08:36)
[2016-08-19] MEDS: METOPROLOL TARTRATE 25 MG TAB PO SCH ×2 (08:36→21:31)
[2016-08-19] MEDS: AZITHROMYCIN 500 MG TAB PO SCH (08:37)
[2016-08-19] MEDS: methylPREDNISolone SOD SUCCI 125 MG/2 ML VIAL IV SCH (08:37)
[2016-08-19 12:06] LABS: Glucose,Whole Blood 238 mg/dL (75-99)
[2016-08-19 12:51] LABS: Blood Urea Nitrogen 22 mg/dL (7-17); Calcium 8.3 mg/dL (8.4-10.2); Chloride 94 mmol/L (98-107); Glucose 155 mg/dL (74-99); Non-African American GFR(MDRD) >60 (>60 ml/min/1.73 sqM); Potassium 4.2 mmol/L (3.5-5.1); Sodium 140 mmol/L (137-145)
[2016-08-19 12:58] LABS: Anion Gap 4 mmol/L
[2016-08-19 13:06] LABS: Carbon Dioxide 42 mmol/L (22-30)
--- NOTE | 2016-08-19 15:13 | P.PN ---
Subjective This is a 70-year-old female who is currently on a BiPAP and most of the history was taken from the medical records as the patient is not able to give a detailed history. Review of systems is also very limited. She was apparently brought to the hospital with symptoms of progressively worsening shortness of breath. Upon arrival via EMS the patient was found to have an oxygen saturation in the 60s which did improve after nebulizers and oxygen. EKG on arrival showed atrial fibrillation with rapid ventricular response and occasional PVC. Patient does not have a prior history to our knowledge of atrial fibrillation. The patient was initiated on IV Cardizem along with subcutaneous Lovenox. IV Cardizem has been discontinued. Patient was treated on oral digoxin yesterday. Upon examination, is more alert today. She feels she is breathing better. She denies any complaints of chest discomfort or dizziness.. Objective - Vital Signs Vital signs: Vital Signs Temp 97.0 F L 08/19/16 11:05 Pulse 92 08/19/16 12:43 Resp 20 08/19/16 11:28 BP 110/58 08/19/16 11:05 Pulse Ox 91 L 08/19/16 11:28 Intake & Output 08/18/16 08/19/16 08/19/16 18:59 06:59 18:59 Intake Total 377 470 Balance 377 470 Weight 117.5 kg 113 kg Intake: IV 130 0.9% NS @ 10 80 cefTRIAXone 1,000 mg In 50 Sodium Chloride 0.9% 50 ml @ 100 mls/hr IVPB Q24HR [facility] Rx#:[id number] Oral 377 340 Other: Voiding Method Diaper Diaper Diaper Incontinent Incontinent Incontinent # Voids 3 1 - Exam PHYSICAL EXAMINATION: HEENT: Head is atraumatic, normocephalic. Pupils equal, round. Neck is supple. There is no elevated jugular venous pressure. HEART EXAMINATION: Heart sounds irregularly irregular, S1 and S2 with a systolic murmur. CHEST EXAMINATION: Lungs reveal scattered coarse rhonchi and wheezing throughout. No chest wall tenderness is noted on palpation or with deep breathing. ABDOMEN: Soft, obese, nontender. Bowel sounds are heard. No organomegaly noted. EXTREMITIES: 1+ peripheral pulses with no evidence of peripheral edema and no calf tenderness noted. NEUROLOGIC patient is awake, alert. . - Labs CBC & Chem 7: 08/18/16 05:54 08/19/16 05:44 Labs: Abnormal Lab Results - Last 24 Hours (Table) 08/19/16 08/19/16 08/19/16 Range/Units 05:44 06:20 12:01 Chloride 94 L (98-107) mmol/L Carbon Dioxide 42 H* (22-30) mmol/L BUN 22 H (7-17) mg/dL Glucose 155 H (74-99) mg/dL POC Glucose (mg/dL) 133 H 238 H (75-99) mg/dL Calcium 8.3 L (8.4-10.2) mg/dL Microbiology - Last 24 Hours (Table) 08/16/16 14:03 Blood Culture - Preliminary Blood No Growth after 48 hours Assessment and Plan Plan: #1 respiratory failure likely combination of COPD, possible pneumonia and mild congestive heart failure, LV systolic function and no #2 atrial fibrillation, appears to be new onset, persistent currently on Lovenox #3 COPD #4 hyperlipidemia #5 nicotine dependence #6 hypotension From cardiology's perspective, the patient has adequate coverage for Eliquis. Will start 5 mg by mouth twice a day and stop Lovenox. We will follow the patient's renal function, electrolytes and daily weights. Further recommendations to follow. DICE MANAGER note has been reviewed, I agree with a documented findings and plan of care. Patient was seen and examined.
--- NOTE | 2016-08-19 15:49 | ECHOF ---
Referral Reason:AF, CHF MEASUREMENTS -------- HEIGHT: 162.6 cm WEIGHT: 112.9 kg BP: 139/64 RVIDd: 2.8 cm (< 3.3) IVSd: 1.4 cm (0.6 - 1.1) LVIDd: 4.7 cm (3.9 - 5.3) LVPWd: 1.4 cm (0.6 - 1.1) IVSs: 1.5 cm LVIDs: 3.5 cm LVPWs: 1.5 cm LA Diam: 3.6 cm (2.7 - 3.8) Ao Diam: 3.2 cm (2.0 - 3.7) AV Cusp: 1.8 cm (1.5 - 2.6) LA Diam: 5.2 cm (2.7 - 3.8) MV EXCURSION: 25.141 mm (> 18.000) MV EF SLOPE: 86 mm/s (70 - 150) EPSS: 0.9 cm MV E Sherman: 0.83 m/s MV DecT: 233 ms MV A Sherman: 0.27 m/s MV E/A Ratio: 3.08 RAP: 5.00 mmHg RVSP: 13.29 mmHg FINDINGS -------- Sinus rhythm. This was a technically adequate study. There is mild concentric left ventricular hypertrophy. Overall left ventricular systolic function is low-normal with, an EF between 50 - 55 %. The right ventricle is normal in size. The left atrial size is normal. The right atrial size is normal. The aortic valve was not well visualized. Mild mitral regurgitation is present. Mild tricuspid regurgitation present. There is no evidence of pulmonary hypertension. The right ventricular systolic pressure, as measured by Doppler, is 13.29mmHg. There is no pulmonic regurgitation present. The aortic root size is normal. There is no pericardial effusion. CONCLUSIONS -------- 1. There is mild concentric left ventricular hypertrophy. 2. Overall left ventricular systolic function is low-normal with, an EF between 50 - 55 %. 3. The aortic valve was not well visualized. 4. Mild mitral regurgitation is present. 5. Mild tricuspid regurgitation present. 6. There is no evidence of pulmonary hypertension. 7. The right ventricular systolic pressure, as measured by Doppler, is 13.29mmHg. SOFTWARE QUALITY SPECIALIST: Florencia Iverson RDCS
--- NOTE | 2016-08-19 16:00 | PN ---
DATE OF SERVICE: 08/19/2016 PRESENTING COMPLAINT: Short of breath. INTERVAL HISTORY: This patient with multiple problems presented with bilateral pneumonia and acute chronic obstructive pulmonary disease exacerbation and severe hypoxic respiratory failure, was tried on nasal cannula earlier today and then went back to BiPAP. Spoke to the nurse. Patient actually did eat some breakfast today. Patient a bit more awake following commands. Still short of breath. REVIEW OF SYSTEMS: Difficult to get because of shortness of breath. Current medications are reviewed includin. Duoneb. 2. Zithromax. 3. IV ceftriaxone. 4. IV Solu-Medrol. On examination, temperature 97, pulse 86, respiration 20, blood pressure 127/58, pulse ox 96% on BiPAP. GENERAL APPEARANCE: Propped up in bed, short of breath. BiPAP placed. EYES: Pupils equal. Conjunctivae normal. NECK: JVD unable to assess. Mass not palpable. RESPIRATORY: Effort increased. LUNGS: Accessory muscles are working, but better. LUNGS: Slightly improved air entry. Decreased crackles. CARDIOVASCULAR: Heart sounds irregular. No edema. ABDOMEN: Soft, nontender. Liver and spleen not palpable. PSYCHIATRY: Following commands. Looks tired. INVESTIGATIONS: White count 3.7, hemoglobin 7.4. Potassium 4.4. BUN 20, creatinine 0.60. Labs are from yesterday. ProBNP is 404. ASSESSMENT: 1. Bilateral pneumonia, multilobar, suspect gram-negative organism causing severe sepsis-like presentation on admission. Blood cultures remain negative. 2. Acute hypoxic respiratory failure, slow to respond. The patient is still requiring BiPAP, though slight improvement. 3. Acute severe chronic obstructive pulmonary disease exacerbation in a current smoker, slow to respond. 4. Chronic nicotine dependence. 5. Acute metabolic encephalopathy from sepsis slowly improving. 6. Morbid obesity, body mass index of 47.1. 7. Atrial fibrillation. Persistent. Somewhat better controlled. PLAN: Continue current medication and treatment plan. Given that patient's proBNP is only 404, we will cut back on the Lasix. Continue current medication and treatment plan. Check labs.
[2016-08-19 17:07] LABS: Glucose,Whole Blood 115 mg/dL (75-99)
[2016-08-19] MEDS: methylPREDNISolone SOD SUCCI 40 MG/ML 1 ML VIAL IV SCH ×2 (17:14→23:09)
[2016-08-19] MEDS: FUROSEMIDE 40 MG TAB PO SCH (17:15)
--- NOTE | 2016-08-19 18:15 | PN ---
This is a 70-year-old female patient, who resides in an adult foster care setting. She herself is quite a poor historian. She was on BiPAP when we saw her yesterday in consultation. Today she is off the BiPAP, having some lunch and maintaining O2 saturation in the low 90s on 12 L of high-flow nasal cannula. She has been afebrile. Yesterday's chest x-ray revealed congestive heart failure and pulmonary edema but no significant worsening. On physical exam, she is alert, in no acute distress. Vital signs reveal blood pressure 110/58, heart rate 88, respirations 20, temperature is 97.0. She is 91% O2 saturation on 12 L of high-flow nasal cannula. Her head is normocephalic. Sclerae nonicteric. Her neck is supple. Trachea midline. Her lungs have crackles in the bilateral posterior bases. Her heart is regular, S1, S2. Her abdomen is obese, soft, nontender. Bowel sounds are present. There is trace peripheral edema. No clubbing. No cyanosis. Peripheral pulses are intact. INVESTIGATIONS: Lab results reveal sodium 140, potassium 4.2, chloride 94, CO2 of 42, BUN 22, creatinine 0.53. Blood cultures reveal no growth to date. Urine culture reveals no growth. Medications are reviewed. IMPRESSION: 1. Acute hypoxic respiratory failure secondary to suspected diastolic congestive heart failure, possible community-acquired pneumonia, suspect acute exacerbation of chronic obstructive pulmonary disease, chronic and ongoing tobacco dependence. 2. Chronic and ongoing tobacco dependence. 3. Acute on chronic hypercapnic respiratory failure secondary to suspected obesity/hypoventilation syndrome and/or obstructive sleep apnea. 4. Morbid obesity. 5. History of depression. 6. Hyperlipidemia. 7. Atrial fibrillation. PLAN: The patient was seen and evaluated by Dr. Cruz. Will continue to utilize the BiPAP in the evenings and on and off throughout the day as needed. Will continue with high-flow nasal cannula in between. She remains on antibiotics in the form of ceftriaxone and azithromycin. Will continue with bronchodilators and IV Solu-Medrol. Cardiology is on the case as well. Will continue to follow.
[2016-08-19 21:13] LABS: Glucose,Whole Blood 155 mg/dL (75-99)
[2016-08-19] MEDS: ATORVASTATIN 40 MG TAB PO SCH (21:31)
[2016-08-19] MEDS: APIXABAN 5 MG TAB PO SCH (21:31)
[2016-08-20] MEDS: IPRATROPIUM-ALBUTEROL 3 ML NEB INHALATION SCH ×6 (04:04→19:56)
[2016-08-20 06:12] LABS: Glucose,Whole Blood 177 mg/dL (75-99)
[2016-08-20] MEDS: OXYBUTYNIN CHLORIDE 5 MG TAB PO SCH ×3 (06:49→23:55)
[2016-08-20] MEDS: INSULIN LISPRO (humaLOG) 300 UNIT/3 ML VIAL SQ SCH ×4 (06:49→21:12)
[2016-08-20 07:16] LABS: Blood Urea Nitrogen 30 mg/dL (7-17); Calcium 9.4 mg/dL (8.4-10.2); Chloride 92 mmol/L (98-107); Glucose 172 mg/dL (74-99); Non-African American GFR(MDRD) >60 (>60 ml/min/1.73 sqM); Potassium 4.3 mmol/L (3.5-5.1); Sodium 140 mmol/L (137-145)
[2016-08-20 07:24] LABS: Anion Gap 6 mmol/L
[2016-08-20 07:26] LABS: Carbon Dioxide 42 mmol/L (22-30)
[2016-08-20] MEDS: METOPROLOL TARTRATE 25 MG TAB PO SCH ×2 (07:32→21:11)
[2016-08-20] MEDS: AZITHROMYCIN 500 MG TAB PO SCH (07:32)
[2016-08-20] MEDS: methylPREDNISolone SOD SUCCI 40 MG/ML 1 ML VIAL IV SCH ×3 (07:32→23:55)
[2016-08-20] MEDS: FUROSEMIDE 40 MG TAB PO SCH ×2 (07:32→15:26)
[2016-08-20] MEDS: APIXABAN 5 MG TAB PO SCH ×2 (07:33→21:12)
[2016-08-20] MEDS: CHOLECALCIFEROL 1,000 UNIT TAB PO SCH (07:33)
[2016-08-20] MEDS: DIGOXIN 250 MCG TAB PO SCH (07:33)
[2016-08-20] MEDS: BUDESONIDE 1 MG/2 ML NEBU INHALATION SCH ×2 (07:56→19:18)
--- NOTE | 2016-08-20 08:16 | XR ---
EXAMINATION TYPE: XR chest 1V portable DATE OF EXAM: 08/20/2016 7:37 AM COMPARISON: NONE INDICATION: Pneumonia follow-up previous abnormal chest TECHNIQUE: Single frontal view of the chest is obtained. FINDINGS: The heart size is enlarged. The pulmonary vasculature is normal. Mild infiltrates in the right midlung and lower lung field. Resolving pneumonia should be considered. Left lower lobe infiltrate is resolving. IMPRESSION: 1. Resolving lower lobe infiltrates. Mild residual remains. Continued follow-up is recommended.
[2016-08-20] MEDS ORDERED: FUROSEMIDE 40 MG TAB PO SCH (09:00)
[2016-08-20 11:44] LABS: Glucose,Whole Blood 140 mg/dL (75-99)
--- NOTE | 2016-08-20 14:00 | DS ---
DATE OF ADMISSION: 08/16/2016 DATE OF DISCHARGE: 08/19/2016 FINAL DIAGNOSES: 1. Bilateral pneumonia, multilobar, suspect gram-negative organism causing severe sepsis-like presentation on admission. 2. Acute hypoxic respiratory failure secondary to pneumonia, present on admission. 3. Acute severe chronic obstructive pulmonary disease exacerbation in a current smoker, present on admission. 4. Chronic nicotine dependence. 5. Acute metabolic encephalopathy from sepsis. 6. Morbid obesity, body mass index of 47.1. 7. Persistent atrial fibrillation. HOSPITAL COURSE: This pleasant lady presented with left pneumonia, COPD, sepsis, responded well to antibiotics, nebulized bronchodilators and steroids. By the day of discharge, patient was up and did walk in the hallway. Pulse oxing well on room air. Did tolerate a diet. On exam, lungs decreased breath sounds. CARDIOVASCULAR: Heart size is irregular, rate controlled. Patient's Lasix was discontinued. Motrin was discontinued. Patient's creatinine was 2.54 at the time of admission and did drop down to 0.9 at the time of discharge. Care was discussed with the patient. Discharge planning more than 35 minutes. CONSULTATIONS: Dr. Trevino from nephrology; Dr. Villarreal from pulmonary. DISCHARGE MEDICATIONS: 1. Ventolin nebulizer q.i.d. and p.r.n. 2. Symbicort 2 puffs b.i.d. 160/4.5. 3. Cardizem CD 240 mg a day. 4. Zestril 2.5 mg a day. 5. Lopressor 25 mg p.o. b.i.d. 6. Lopressor 25 p.o. b.i.d. 7. Ditropan 5 mg p.o. b.i.d. 8. Aldactone 25 mg p.o. daily. 9. Ceftin 500 mg p.o. b.i.d. 10. DuoNeb t.i.d. 11. Coumadin 2.5 mg daily. 12. Prednisone taper. Follow up with Dr. Villarreal in one week. Follow with Dr. Gould in 3 days. LABS: CBC, BMP and INR 3 to [address] Gould.
[2016-08-20 16:31] LABS: Glucose,Whole Blood 167 mg/dL (75-99)
--- NOTE | 2016-08-20 17:28 | PN ---
This is a 70-year-old female who was admitted with a diagnosis of hypoxemic respiratory failure secondary to fluid overload. She was placed on BiPAP and diuresed. I am happy to report that she is starting to improve. Chest x-ray is improved. She is not a particularly good historian. She is much less short of breath, requiring less oxygen therapy. The patient seems a bit more comfortable today. Really cannot give us much of the history. Does not appear to have any pain. Not coughing. Not producing any phlegm. Current vital signs include temperature is 96.8, heart rate 88, respiratory rate 18, blood pressure 123/70, mean 87 and saturations are mid 90s on the 10L high flow. Appears in no acute distress, not tachypneic or dyspneic. HEENT is grossly unremarkable. Mucous membranes are moist. No oral lesions. NECK: Supple. Full range of motion. No adenopathy, thyromegaly or neck vein distention. Cardiovascular reveals regular rhythm and rate. S1, S2 normal. Heart sounds are distant. No distinct murmur noted. Lungs reveal bibasilar crackles. Breath sounds are diminished. A few scattered rhonchi. No wheezes. ABDOMEN: Soft. Bowel sounds are heard. Extremities are intact. There is trace edema. Skin without rash. NEUROLOGICAL: Difficult to perform. Labs are reviewed. Nothing new on her except for an electrolyte profile done today. Sodium 140, potassium 4.3, chloride 92, CO2 of 42, BUN and creatinine were 38 and 0.56. The rest of the labs look okay. Influenza studies were negative. Microbiologic studies were all negative. Chest x-ray shows improving volume status. Medications are reviewed. ASSESSMENT: 1. Shortness of breath with hypoxemic respiratory failure, likely multifactorial, in part related to underlying diastolic congestive heart failure, possible community-acquired pneumonia as well as chronic obstructive pulmonary disease exacerbation. 2. Ongoing nicotine use with tobacco dependence. 3. History of hypercapnic respiratory failure. 4. Possible obesity hypoventilation syndrome. 5. Possible sleep apnea syndrome. 6. Morbid obesity. 7. History of depression. 8. Hyperlipidemia. 9. Atrial fibrillation. PLAN: The patient's medications are reviewed. She is on appropriate medications. Will continue to follow. Her chest x-ray is improved. Clinically, she looks better. Will continue to progress her along. Overall prognosis is guarded, though.
--- NOTE | 2016-08-20 18:28 | PN ---
DATE OF SERVICE: 08/20/2016 PRESENTING COMPLAINT: Short of breath. INTERVAL HISTORY: This patient presented with bilateral pneumonia and acute chronic obstructive pulmonary disease exacerbation, severe hypoxic respiratory failure and has been on off on BiPAP, more awake today, did tolerate some diet. Patient has been requesting several people to go outside if she can have a cigarette. Quite a bit short of breath. Appetite is better. Review of systems done for constitutional, cardiovascular, GI, pulmonary; relevant findings as above. The patient still significantly congested, short of breath, wheezing, better than before. Current medications are reviewed that include IV Solu-Medrol, nebulized bronchodilators, Zithromax. On examination, temperature 97, pulse 76, respiratory rate 20, blood pressure 117/68, pulse ox 93% on 8 liters. GENERAL APPEARANCE: Lying in bed, short of breath, though better than before on Ventimask. EYES: Pupils equal. Conjunctivae normal. NECK: JVD unable to assess. Mass not palpable. RESPIRATORY: Effort increased. LUNGS: Decreased breath sounds. Prolonged expiration and wheezing. CARDIOVASCULAR: First and second heart sounds irregular. No edema. ABDOMEN: Soft, nontender. Liver and spleen not palpable. PSYCHIATRY: Awake, following commands. Investigations: Potassium 4.3. BUN 30, creatinine 0.56. Accu-Cheks as noted. Chest x-ray states resolving infiltrates. ASSESSMENT: 1. Bilateral pneumonia, multilobar, suspect gram-negative organism causing severe sepsis on presentation with clinical improvement. 2. Acute hypoxic respiratory failure, the patient responded to BiPAP on very high flow oxygen. 3. Acute severe chronic obstructive pulmonary disease exacerbation in a current smoker, slow to respond. 4. Chronic nicotine dependence. 5. Acute metabolic encephalopathy, ( ) continues to improve. Patient now able to communicate. 6. Morbid obesity, body mass index of 47.7. 7. Atrial fibrillation. Persistent. PLAN: Continue current medication and treatment plan. Patient insists on going out to smoke, politely declined the request. Continue nebulized bronchodilators, steroids.
--- NOTE | 2016-08-20 18:52 | P.PN ---
Subjective Principal diagnosis: Acute respiratory failure, bilateral pneumonia, persistent atrial fibrillation This patient appears to be much more alert today. Having some diet. Doesn't seem to be in acute respiratory distress ,Patient's atrial fibrillation is well controlled and patient is on novel anticoagulant therapy.. Patient is also on antibiotics. Overall patient condition is improved. From Cardec standpoint we' ll continue anticoagulation and measures for rate control. At this point we'll follow her as needed Objective - Vital Signs Vital signs: Vital Signs Temp 96.8 F L 08/20/16 15:24 Pulse 88 08/20/16 16:03 Resp 18 08/20/16 15:24 BP 131/65 08/20/16 15:24 Pulse Ox 92 L 08/20/16 15:24 Intake & Output 08/19/16 08/20/16 08/20/16 18:59 06:59 18:59 Intake Total 1190 1026 Output Total 200 Balance 1190 826 Weight 112 kg Intake: IV 130 50 0.9% NS @ 10 80 cefTRIAXone 1,000 mg In 50 50 Sodium Chloride 0.9% 50 ml @ 100 mls/hr IVPB Q24HR [facility] Rx#:[id number] Oral [id number] [id number] Output: Urine 200 Other: Voiding Method Diaper Diaper Diaper Incontinent Incontinent Incontinent # Voids 1 1 1 # Bowel Movements 0 2 - Exam GENERAL EXAM: Patient is alert and oriented and doesn't appear to be in any acute distress HEENT: Normocephalic. Normal reaction of pupils, equal size, normal range of extraocular motion. No erythema or exudates in the throat. NECK: No masses, no nuchal rigidity. CHEST: No chest wall deformity. LUNGS: Scattered rhonchi and diminished breath sounds. HEART: S1 and S2 normal with no audible mumurs or gallops. Regular rhythm, femorals equal on both sides.. ABDOMEN: No hepatosplenomegaly, normal bowel sounds, no guarding or rigidity. SKIN: No rashes CENTRAL NERVOUS SYSTEM: No focal deficits. EXTREMITIES: Mild edema - Labs CBC & Chem 7: 08/18/16 05:54 08/20/16 06:35 Labs: Abnormal Lab Results - Last 24 Hours (Table) 08/19/16 08/20/16 08/20/16 Range/Units 21:11 06:06 06:35 Chloride 92 L (98-107) mmol/L Carbon Dioxide 42 H* (22-30) mmol/L BUN 30 H (7-17) mg/dL Glucose 172 H (74-99) mg/dL POC Glucose (mg/dL) 155 H 177 H (75-99) mg/dL 08/20/16 08/20/16 Range/Units 11:39 16:26 Chloride (98-107) mmol/L Carbon Dioxide (22-30) mmol/L BUN (7-17) mg/dL Glucose (74-99) mg/dL POC Glucose (mg/dL) 140 H 167 H (75-99) mg/dL Microbiology - Last 24 Hours (Table) 08/16/16 14:03 Blood Culture - Preliminary Blood No Growth after 96 hours Assessment and Plan (1) Atrial fibrillation with RVR Status: Acute (2) Bilateral pneumonia Status: Acute (3) Respiratory failure Status: Acute (4) Obesity Status: Acute Plan: We'll continue current medical therapy. 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 We will be seeing her on when necessary basis
[2016-08-20] MEDS ORDERED: IPRATROPIUM-ALBUTEROL 3 ML NEB INHALATION PRN (19:46)
[2016-08-20] MEDS: ATORVASTATIN 40 MG TAB PO SCH (21:11)
[2016-08-20 21:18] LABS: Glucose,Whole Blood 169 mg/dL (75-99)
[2016-08-21] MEDS: INSULIN LISPRO (humaLOG) 300 UNIT/3 ML VIAL SQ SCH ×4 (06:53→20:53)
[2016-08-21] MEDS: OXYBUTYNIN CHLORIDE 5 MG TAB PO SCH ×3 (06:55→23:16)
[2016-08-21 07:05] LABS: Glucose,Whole Blood 118 mg/dL (75-99)
[2016-08-21] MEDS: IPRATROPIUM-ALBUTEROL 3 ML NEB INHALATION SCH ×4 (07:05→20:04)
[2016-08-21] MEDS: BUDESONIDE 1 MG/2 ML NEBU INHALATION SCH ×2 (07:18→20:04)
[2016-08-21] MEDS: methylPREDNISolone SOD SUCCI 40 MG/ML 1 ML VIAL IV SCH ×3 (08:47→23:16)
[2016-08-21] MEDS: METOPROLOL TARTRATE 25 MG TAB PO SCH ×2 (08:48→20:52)
[2016-08-21] MEDS: AZITHROMYCIN 500 MG TAB PO SCH (08:48)
[2016-08-21] MEDS: DIGOXIN 250 MCG TAB PO SCH (08:48)
[2016-08-21] MEDS: FUROSEMIDE 40 MG TAB PO SCH ×2 (08:48→16:30)
[2016-08-21] MEDS: APIXABAN 5 MG TAB PO SCH ×2 (08:51→20:52)
[2016-08-21 11:16] VITALS: BMI 42.0
[2016-08-21 11:56] LABS: Glucose,Whole Blood 137 mg/dL (75-99)
[2016-08-21] MEDS: CHOLECALCIFEROL 1,000 UNIT TAB PO SCH (12:34)
[2016-08-21] MEDS ORDERED: NICOTINE POLACRILEX 2 MG GUM BUCCAL PRN (12:55)
[2016-08-21] MEDS: NICOTINE 21MG/24HR PATCH TRANSDERM SCH (14:01)
--- NOTE | 2016-08-21 16:50 | P.PN ---
Subjective This is a pleasant 70-year-old female patient who resides in an adult foster care setting. She herself is a poor historian. She was brought to the emergency room via EMS after having complaints of increasing shortness of breath and difficulty breathing. Upon arrival she did have a pulse oximeter reading of 67% on room air. She was given bronchodilators and updraft treatmentsshe herself is a poor historian. She does have a history of hyperlipidemia, depression and chronic and ongoing tobacco dependence. No documented history of chronic obstructive pulmonary disease. Her EKG revealed evidence of atrial fibrillation possibly new. Her chest x-ray revealed some perihilar airspace disease along with suspicion of underlying COPD. There is also some vascular congestion and suspected congestive heart failure. Arterial blood gases on 50% FiO2 revealed a PaO2 of 69, pCO2 58, pH 7.33. Her troponins were negative. No leukocytosis. ProBNP 2069. Her liver enzymes are elevated AST 105, ALT 125. Iinfluenza screen is negative. The patient is seen again today 08/21/2016 in follow-up. She is more awake and alert today as compared to yesterday. She denies any worsening shortness of breath, cough or congestion. She is able to spend a little bit more time off the BiPAP. She is still requiring 8 L of high flow nasal cannula to maintain O2 saturations in the upper 80s. Blood and urine cultures reveal no growth. She is being anticoagulated with Eliquis. She remains on bronchodilators and antibiotics. Objective - Vital Signs Vital signs: Vital Signs Temp 97.1 F L 08/21/16 16:28 Pulse 78 08/21/16 16:28 Resp 20 08/21/16 16:35 BP 126/79 08/21/16 16:28 Pulse Ox 88 L 08/21/16 16:28 Intake & Output 08/20/16 08/21/16 08/21/16 18:59 06:59 18:59 Intake Total 1026 20 1120 Output Total 200 Balance 277 26 7626 Weight 111 kg 111 kg Intake: IV 50 20 0.9% NS @ 10 20 cefTRIAXone 1,000 mg In 50 Sodium Chloride 0.9% 50 ml @ 100 mls/hr IVPB Q24HR [facility] Rx#:[id number] Oral [id number] Output: Urine 200 Other: Voiding Method Diaper Diaper Diaper Incontinent Incontinent Incontinent # Voids 1 2 1 # Bowel Movements 2 1 - Exam GENERAL EXAM: Alert, comfortable in no apparent distress. HEAD: Normocephalic. EYES: Normal reaction of pupils, equal size. NOSE: Clear with pink turbinates. THROAT: No erythema or exudates. NECK: No masses, no JVD. CHEST: No chest wall deformity. LUNGS: Equal air entry with HEENT crackles in the posterior bases.. CVS: S1 and S2 normal with no audible murmurs, irregular rhythm. ABDOMEN: Obese, soft, normal bowel sounds, no guarding or rigidity. Extremities: There is trace peripheral edema. No clubbing, no cyanosis. Peripheral pulses are intact. - Labs CBC & Chem 7: 08/18/16 05:54 08/20/16 06:35 Labs: Abnormal Lab Results - Last 24 Hours (Table) 08/20/16 08/21/16 08/21/16 Range/Units 20:47 06:36 11:47 POC Glucose (mg/dL) 169 H 118 H 137 H (75-99) mg/dL Microbiology - Last 24 Hours (Table) 08/16/16 14:03 Blood Culture - Preliminary Blood No Growth after 120 hours Assessment and Plan Plan: impression: #1 Acute hypoxic respiratory failure secondary to suspected diastolic congestive heart failure, possible community-acquired pneumonia, suspect acute exacerbation of chronic obstructive pulmonary disease, chronic and ongoing tobacco dependence. #2 Chronic and ongoing tobacco dependence. #3 Acute on chronic hypercapnic respiratory failure secondary to suspected obesity/hypoventilation syndrome versus obstructive sleep apnea. #4 Morbid obesity. #5 History of depression. #6 Hyperlipidemia. #7 Atrial fibrillation, possibly new onset. Plan: The patient was seen and evaluated by Dr. Holt We do suspect some component of both acute hypoxic respiratory failure and hypercapnic respiratory failure. we will continue with bronchodilators, Pulmicort inhalations, antibiotics in the form of ceftriaxone and azithromycin. Continue steroids. Continue Lasix. She is again educated regarding the importance of complete smoking cessation. A NicoDerm patches in place. We'll order an incentive spirometer to encourage increased cough and deep breathing exercises. We will continue to follow and make further recommendations based on her clinical status.
[2016-08-21 17:31] LABS: Glucose,Whole Blood 116 mg/dL (75-99)
[2016-08-21 20:44] LABS: Glucose,Whole Blood 179 mg/dL (75-99)
[2016-08-21] MEDS: ATORVASTATIN 40 MG TAB PO SCH (20:52)
--- NOTE | 2016-08-22 05:52 | PN ---
DATE OF SERVICE: 08/21/2016 PRESENTING COMPLAINT: Short of breath. INTERVAL HISTORY: This patient presented with bilateral pneumonia and acute COPD exacerbation, severe hypoxic respiratory failure and being on a BiPAP. Patient today on high-flow oxygen about 10 L and saturating around 90%. Patient is still keen to go out and smoke. Patient did tolerate a diet. Propped up in bed, awake. Review of systems done for constitutional, cardiovascular, GI, pulmonary; relevant findings as above. Current medications are reviewed that include Eliquis. DuoNeb q.i.d., IV Solu-Medrol. On examination, temperature 99.4, pulse 90, respiration 20, blood pressure 121/78, pulse ox 90% on 8 L high-flow oxygen. GENERAL APPEARANCE: Propped up in bed, sitting up, short of breath, nasal cannula in place. EYES: Pupils equal. Conjunctivae normal. NECK: JVD unable to assess. Mass not palpable. RESPIRATORY: Effort increased. LUNGS: Decreased breath sounds. Prolonged expiration wheezing. CARDIOVASCULAR: First and second sounds normal. Irregular. No edema. ABDOMEN: Soft, nontender. Liver and spleen not palpable. PSYCHIATRY: Awake, answering questions. Asking to go out and smoke. INVESTIGATIONS: Accu-Cheks are noted. ASSESSMENT: 1. Bilateral pneumonia, multilobar, suspect gram-negative organism causing severe sepsis on presentation with clinical improvement. 2. Acute hypoxic respiratory failure. The patient responded to BiPAP on very high-flow oxygen. 3. Acute severe chronic obstructive pulmonary disease exacerbation in a current smoker, slow to respond. 4. Chronic nicotine dependence. 5. Acute metabolic encephalopathy from pneumonia, sepsis, improving. 6. Morbid obesity, body mass index 47.7. 7. Persistent atrial fibrillation. PLAN: Continue current medication and treatment plan. Patient definitely slow to respond. Patient again told the importance of not smoking. Will follow.
[2016-08-22 06:34] LABS: Glucose,Whole Blood 115 mg/dL (75-99)
[2016-08-22] MEDS: INSULIN LISPRO (humaLOG) 300 UNIT/3 ML VIAL SQ SCH ×4 (06:34→21:40)
[2016-08-22] MEDS: OXYBUTYNIN CHLORIDE 5 MG TAB PO SCH ×3 (06:36→23:15)
[2016-08-22] MEDS: BUDESONIDE 1 MG/2 ML NEBU INHALATION SCH ×2 (07:40→20:03)
[2016-08-22] MEDS: IPRATROPIUM-ALBUTEROL 3 ML NEB INHALATION SCH ×4 (07:40→20:03)
--- NOTE | 2016-08-22 09:11 | XR ---
EXAMINATION TYPE: XR chest 2V DATE OF EXAM: 08/22/2016 7:22 AM COMPARISON: 08/20/2016 HISTORY: Abnormal x-ray FINDINGS: There are bilateral pleural effusions with cardiomegaly and bibasilar infiltrate. There is a diffuse interstitial pattern. Arthropathy of the shoulders. IMPRESSION: 1. Bilateral areas of consolidation and small effusion with diffuse interstitial pattern. Although pn eumonia as previously mentioned is in the differential also consider CHF.
[2016-08-22] MEDS: DIGOXIN 250 MCG TAB PO SCH (10:05)
[2016-08-22] MEDS: METOPROLOL TARTRATE 25 MG TAB PO SCH ×2 (10:05→21:40)
[2016-08-22] MEDS: FUROSEMIDE 40 MG TAB PO SCH ×2 (10:05→17:55)
[2016-08-22] MEDS: NICOTINE 21MG/24HR PATCH TRANSDERM SCH (10:05)
[2016-08-22] MEDS: methylPREDNISolone SOD SUCCI 40 MG/ML 1 ML VIAL IV SCH ×3 (10:05→23:15)
[2016-08-22] MEDS: APIXABAN 5 MG TAB PO SCH ×2 (10:05→21:40)
[2016-08-22] MEDS: AZITHROMYCIN 500 MG TAB PO SCH (10:05)
[2016-08-22] MEDS ORDERED: RX INFO: IV CONTRAST WAS GIVEN 1 EACH MISC MISCELLANE PRN (10:07)
[2016-08-22 12:07] LABS: Glucose,Whole Blood 123 mg/dL (75-99)
--- NOTE | 2016-08-22 12:32 | CT ---
EXAMINATION TYPE: CT angio chest DATE OF EXAM: 08/22/2016 12:13 PM COMPARISON: Chest x-ray earlier today. HISTORY: pneumonia, SOB CT DLP: 568 mGycm. Automated Exposure Control for Dose Reduction was Utilized. CONTRAST: CTA scan of the thorax is performed with IV Contrast, patient injected with 100 mL of Omnipaque 350, pulmonary embolism protocol. MIP Images are created on CT scanner and reviewed. FINDINGS: LUNGS: Exam is suboptimal as is degraded by significant respiratory motion artifact. Some scattered a reas of atelectasis are present. There is slightly more prominent consolidation and/or atelectasis la terally in the right lower lobe. Additional consolidation and/or atelectasis medially in the left low er lobe is present. No significant pleural effusion or pneumothorax is seen bilaterally. Cannot exclu de mild diffuse edema. MEDIASTINUM: There is satisfactory enhancement of the pulmonary artery and its branches, there is no CT evidence for large central pulmonary embolism. Smaller segmental and subsegmental PE cannot be en tirely excluded due to marked motion artifact. There is marked enlargement of the main as well as rig ht and left pulmonary arteries. CT findings consistent with underlying pulmonary artery hypertension. There are no greater than 1 cm hilar or mediastinal lymph nodes. There is cardiomegaly with moderate to severe biatrial dilatation. There is small pericardial effusion along right lateral margin. There is reflux of contrast into hepatic veins and IVC. OTHER: Spine is straightened. Multilevel spurring in the spine is seen. Underlying slight scoliotic c urvature is present. IMPRESSION: 1. Suboptimal study without large central pulmonary embolism, smaller segmental and subsegmental PE i s not entirely excluded though felt likely not present. 2. Cardiomegaly with biatrial dilatation and small pericardial effusion. CT findings suggesting pulmo nary artery hypertension right heart failure are noted. Scattered areas of atelectasis and/or limited infiltrate in the lower lungs. Perhaps mild central alveolar edema. Consider CHF exacerbation.
--- NOTE | 2016-08-22 12:41 | P.PN ---
Subjective This is a pleasant 70-year-old female patient who resides in an adult foster care setting. She herself is a poor historian. She was brought to the emergency room via EMS after having complaints of increasing shortness of breath and difficulty breathing. Upon arrival she did have a pulse oximeter reading of 67% on room air. She was given bronchodilators and updraft treatmentsshe herself is a poor historian. She does have a history of hyperlipidemia, depression and chronic and ongoing tobacco dependence. No documented history of chronic obstructive pulmonary disease. Her EKG revealed evidence of atrial fibrillation possibly new. Her chest x-ray revealed some perihilar airspace disease along with suspicion of underlying COPD. There is also some vascular congestion and suspected congestive heart failure. Arterial blood gases on 50% FiO2 revealed a PaO2 of 69, pCO2 58, pH 7.33. Her troponins were negative. No leukocytosis. ProBNP 2069. Her liver enzymes are elevated AST 105, ALT 125. Iinfluenza screen is negative. The patient is seen again today 08/21/2016 in follow-up. She is more awake and alert today as compared to yesterday. She denies any worsening shortness of breath, cough or congestion. She is able to spend a little bit more time off the BiPAP. She is still requiring 8 L of high flow nasal cannula to maintain O2 saturations in the upper 80s. Blood and urine cultures reveal no growth. She is being anticoagulated with Eliquis. She remains on bronchodilators and antibiotics. The patient is seen today in follow-up 08/22/2016 on the selective care unit. She is more awake and alert today as compared to yesterday. She continues to use the BiPAP intermittently. Today's chest x-ray reveals bilateral areas of consolidation and small effusion with diffuse interstitial pattern. Still difficult to determine versus CHF and pneumonia. He is still recovering 7 L of high flow nasal cannula to maintain O2 saturations greater than 88%. She is currently afebrile. Objective - Vital Signs Vital signs: Vital Signs Temp 98.3 F 08/22/16 09:00 Pulse 74 08/22/16 12:00 Resp 20 08/22/16 12:00 BP 134/86 08/22/16 12:00 Pulse Ox 88 L 08/22/16 12:00 Intake & Output 08/21/16 08/22/16 08/22/16 18:59 06:59 18:59 Intake Total 1440 360 Balance 1440 360 Weight 111 kg 110.5 kg Intake: Oral 1440 360 Other: Voiding Method Diaper Diaper Diaper Incontinent Incontinent Incontinent # Voids 1 1 # Bowel Movements 1 1 - Exam GENERAL EXAM: Alert, comfortable in no apparent distress. HEAD: Normocephalic. EYES: Normal reaction of pupils, equal size. NOSE: Clear with pink turbinates. THROAT: No erythema or exudates. NECK: No masses, no JVD. CHEST: No chest wall deformity. LUNGS: Equal air entry with HEENT crackles in the posterior bases.. CVS: S1 and S2 normal with no audible murmurs, irregular rhythm. ABDOMEN: Obese, soft, normal bowel sounds, no guarding or rigidity. Extremities: There is trace peripheral edema. No clubbing, no cyanosis. Peripheral pulses are intact. - Labs CBC & Chem 7: 08/18/16 05:54 08/20/16 06:35 Labs: Abnormal Lab Results - Last 24 Hours (Table) 08/21/16 08/21/16 08/22/16 Range/Units 16:53 20:42 06:32 POC Glucose (mg/dL) 116 H 179 H 115 H (75-99) mg/dL 08/22/16 Range/Units 12:01 POC Glucose (mg/dL) 123 H (75-99) mg/dL Microbiology - Last 24 Hours (Table) 08/16/16 14:03 Blood Culture - Preliminary Blood No Growth after 120 hours Assessment and Plan Plan: impression: #1 Acute hypoxic respiratory failure secondary to suspected diastolic congestive heart failure, possible community-acquired pneumonia, suspect acute exacerbation of chronic obstructive pulmonary disease, chronic and ongoing tobacco dependence. CT angiogram ruled out large central pulmonary embolism. There is evidence of cardiomegaly with biatrial dilatation and small pericardial effusion. Findings suggest pulmonary artery hypertension and right- sided heart failure. There is also some scattered atelectasis/limited infiltrate of the lower lungs. There is some mild central alveolar edema. #2 Chronic and ongoing tobacco dependence. #3 Acute on chronic hypercapnic respiratory failure secondary to suspected obesity/hypoventilation syndrome versus obstructive sleep apnea. #4 Morbid obesity. #5 History of depression. #6 Hyperlipidemia. #7 Atrial fibrillation, possibly new onset. Anticoagulated with apixaban Plan: The patient was seen and evaluated by Dr. Holt. We do suspect some component of both acute hypoxic respiratory failure and hypercapnic respiratory failure. We will continue with bronchodilators, Pulmicort inhalations, antibiotics in the form of ceftriaxone and azithromycin. Continue steroids. Continue diuretics. She is again educated regarding the importance of complete smoking cessation. A NicoDerm patches in place. We'll order an incentive spirometer to encourage increased cough and deep breathing exercises. We will increase her activity as tolerated. We will continue to follow and make further recommendations based on her clinical status.
[2016-08-22] MEDS ORDERED: FUROSEMIDE 10 MG/ML 10 ML VIAL IV STA (13:00)
[2016-08-22] MEDS: CHOLECALCIFEROL 1,000 UNIT TAB PO SCH (13:48)
[2016-08-22 17:03] LABS: Glucose,Whole Blood 167 mg/dL (75-99)
--- NOTE | 2016-08-22 18:52 | PN ---
DATE OF SERVICE: 08/22/2016 PRESENTING COMPLAINT: Shortness of breath. INTERVAL HISTORY: This patient presented with bilateral pneumonia and acute COPD exacerbation, severe hypoxic respiratory failure, on a BiPAP. Patient today remains on high-flow oxygen at about 7 liters and is saturating around 90%. Patient still wants to go out and smoke. Patient is tolerating her diet. She is sitting in the chair, resting comfortably. REVIEW OF SYSTEMS: Done for constitutional, cardiovascular, GI, pulmonary; relevant findings as above. Current medications reviewed include Eliquis, DuoNeb q.i.d. and IV Solu-Medrol. PHYSICAL EXAMINATION: VITAL SIGNS: Temperature 98.3, pulse 71, respirations 20, blood pressure 116/68, pulse ox 89% on high-flow oxygen at 7 L. GENERAL APPEARANCE: Patient is sitting in the chair. Short of breath. Nasal cannula in place. PUPILS: Equal. Conjunctivae normal. NECK: JVD unable to assess. Mass not palpable. RESPIRATORY: Efforts increased. LUNGS: Decreased breath sounds. Prolonged expiration and wheezing. CARDIOVASCULAR: First and second lung sounds normal. There is irregularity noted. No edema. ABDOMEN: Soft, non-tender. Liver and spleen not palpable. PSYCHIATRIC: Awake. Able to answer questions. Continues to want to go out and smoke. INVESTIGATIONS: Accu-Cheks are noted. ASSESSMENT: 1. Bilateral pneumonia, multi-lobar; suspect Gram-negative organism causing severe sepsis on presentation. Slowly improving. Patient is able to talk; however, looks tired. 2. Acute hypoxic respiratory failure. The patient responded to BiPAP and currently is on high-flow oxygen. 3. Acute severe chronic obstructive pulmonary disease exacerbation in a current smoker. Patient again is slow to respond. 4. Chronic nicotine dependence. 5. Acute metabolic encephalopathy from pneumonia, sepsis, improving. 6. Morbid obesity, body mass index 47.7. 7. Persistent atrial fibrillation. PLAN: Continue current medication regimen and treatment plan. Patient continues to be slow to respond to interventions. Patient reminded once again the importance of not smoking. Will follow.
[2016-08-22 20:59] LABS: Glucose,Whole Blood 178 mg/dL (75-99)
[2016-08-22] MEDS: ATORVASTATIN 40 MG TAB PO SCH (21:40)
[2016-08-23] MEDS: OXYBUTYNIN CHLORIDE 5 MG TAB PO SCH ×3 (06:19→23:06)
[2016-08-23 06:23] LABS: Glucose,Whole Blood 120 mg/dL (75-99)
[2016-08-23] MEDS: INSULIN LISPRO (humaLOG) 300 UNIT/3 ML VIAL SQ SCH ×4 (06:30→21:12)
[2016-08-23] MEDS: IPRATROPIUM-ALBUTEROL 3 ML NEB INHALATION SCH ×4 (08:20→19:59)
[2016-08-23] MEDS: BUDESONIDE 1 MG/2 ML NEBU INHALATION SCH ×2 (08:20→19:58)
[2016-08-23] MEDS: methylPREDNISolone SOD SUCCI 40 MG/ML 1 ML VIAL IV SCH ×3 (09:26→23:06)
[2016-08-23] MEDS: APIXABAN 5 MG TAB PO SCH ×2 (09:26→21:11)
[2016-08-23] MEDS: AZITHROMYCIN 500 MG TAB PO SCH (09:27)
[2016-08-23] MEDS: DIGOXIN 250 MCG TAB PO SCH (09:27)
[2016-08-23] MEDS: FUROSEMIDE 40 MG TAB PO SCH (09:27)
[2016-08-23] MEDS: NICOTINE 21MG/24HR PATCH TRANSDERM SCH (09:27)
[2016-08-23] MEDS: METOPROLOL TARTRATE 25 MG TAB PO SCH ×2 (09:27→21:11)
--- NOTE | 2016-08-23 09:27 | CDI ---
In responding to this query, please exercise your independent professional judgment. The [facility] Coding Staff and Clinical Documentation Specialists appreciate your assistance in clarifying documentation, maintaining compliance with coding guidelines, accurately documenting patients condition and capturing severity of illness. The fact that a question is asked does not imply that any particular answer is desired or expected. Communication forms are a method of clarifying documentation and are not made part of the Legal Health Record. Thank you in advance for your clarification. Last Revision, June 2015 Adarsh Arteaga [address] [facility] [place] [address] Documentation Clarification Form Date: 08/23/2016 9:09:00 AM From: Eugenia Wyman CCS, CCDS Admit Date: 08/16/2016 12:18:00 PM Patient Name: Kimi Barboza Visit Number: [id number] Discharge Date: Dr. Alesha Pollock and Marilu Bowers DNP: CHF is documented in the cardiology consult as mild congestive cadiac failure, unsure of LV function. History/Risk Factors: COPD, long history of smoking, still dependent. Clinical Indicators: Presented with SOB and found to be in A Fib with low PO, sats in 60s. VS: T 97.0*-101.3^; P 66-135^-100-134^; R 20, BP 200/112; PO 77 2Lnc, BMI: 40.9 , BNP: 2070 Echocardiogram Results 08/19: EF 50-55%, systolic low normal, mild concentric LVH , Mild mitral & tricuspid regurgitation, no pulmonary hypertension. Chest X Ray: 08/16: Congestive failure. Treatment: Telemetry, Albuterol nebs, Cardizem drip, Pneumonia protocol, IV Rocephin, IV Azithromycin, IV Tylenol & IV Lasix Consults: Cardiology, Pulmonary In your professional opinion, can you please clarify the acuity and type of CHF if known? Acute Chronic Acute on Chronic AND Systolic Diastolic Systolic and Diastolic Unable to determine Other, please specify If known, please specify if Heart Failure is due to: Hypertension Rheumatic Fever Please document in your progress notes and discharge summary in order to capture severity of illness and risk of mortality. Include clinical findings that support your diagnosis. FYI: Press F11 to launch patient chart. Place X here if this finding has no clinical significance, is not applicable or if you are not able to provide any additional documentation. Thank You. BRET
[2016-08-23 11:44] LABS: Glucose,Whole Blood 117 mg/dL (75-99)
[2016-08-23] MEDS: CHOLECALCIFEROL 1,000 UNIT TAB PO SCH (12:37)
[2016-08-23] MEDS: FUROSEMIDE 10 MG/ML 4 ML VIAL IV SCH ×2 (12:54→21:11)
[2016-08-23 15:56] LABS: Blood Urea Nitrogen 44 mg/dL (7-17); Chloride 91 mmol/L (98-107); Glucose 122 mg/dL (74-99); Magnesium 2.4 mg/dL (1.6-2.3); Non-African American GFR(MDRD) >60 (>60 ml/min/1.73 sqM); Potassium 4.9 mmol/L (3.5-5.1); Sodium 141 mmol/L (137-145)
[2016-08-23 16:02] LABS: Anion Gap 8 mmol/L
[2016-08-23 16:06] LABS: Carbon Dioxide 42 mmol/L (22-30)
[2016-08-23 17:11] LABS: Glucose,Whole Blood 125 mg/dL (75-99)
--- NOTE | 2016-08-23 17:38 | P.PN ---
Subjective This is a pleasant 70-year-old female patient who resides in an adult foster care setting. She herself is a poor historian. She was brought to the emergency room via EMS after having complaints of increasing shortness of breath and difficulty breathing. Upon arrival she did have a pulse oximeter reading of 67% on room air. She was given bronchodilators and updraft treatmentsshe herself is a poor historian. She does have a history of hyperlipidemia, depression and chronic and ongoing tobacco dependence. No documented history of chronic obstructive pulmonary disease. Her EKG revealed evidence of atrial fibrillation possibly new. Her chest x-ray revealed some perihilar airspace disease along with suspicion of underlying COPD. There is also some vascular congestion and suspected congestive heart failure. Arterial blood gases on 50% FiO2 revealed a PaO2 of 69, pCO2 58, pH 7.33. Her troponins were negative. No leukocytosis. ProBNP 2069. Her liver enzymes are elevated AST 105, ALT 125. Iinfluenza screen is negative. The patient is seen again today 08/21/2016 in follow-up. She is more awake and alert today as compared to yesterday. She denies any worsening shortness of breath, cough or congestion. She is able to spend a little bit more time off the BiPAP. She is still requiring 8 L of high flow nasal cannula to maintain O2 saturations in the upper 80s. Blood and urine cultures reveal no growth. She is being anticoagulated with Eliquis. She remains on bronchodilators and antibiotics. The patient is seen today in follow-up 08/22/2016 on the selective care unit. She is more awake and alert today as compared to yesterday. She continues to use the BiPAP intermittently. Today's chest x-ray reveals bilateral areas of consolidation and small effusion with diffuse interstitial pattern. Still difficult to determine versus CHF and pneumonia. He is still recovering 7 L of high flow nasal cannula to maintain O2 saturations greater than 88%. She is currently afebrile. The patient is seen again today 08/23/2016 in follow-up. She is currently sitting up in a chair at the bedside. She is awake and alert in no acute distress. She is currently maintaining O2 saturations 88% and higher on 6 L of high flow per nasal cannula. Her CTA of the chest revealed cardiomegaly with biatrial dilatation and small pericardial effusion. There is also suggestive of pulmonary artery hypertension and right heart failure. There is bilateral limited infiltrate/atelectasis and some mild central alveolar edema. There is no evidence of large central pulmonary embolism. Objective - Vital Signs Vital signs: Vital Signs Temp 97.2 F L 08/23/16 15:58 Pulse 76 08/23/16 17:00 Resp 20 08/23/16 16:00 BP 109/60 08/23/16 15:58 Pulse Ox 88 L 08/23/16 15:58 Intake & Output 08/22/16 08/23/16 08/23/16 18:59 06:59 18:59 Intake Total 720 568 Balance 720 568 Weight 108 kg Intake: IV 10 0.9% NS @ 10 10 Oral 720 558 Other: Voiding Method Diaper Diaper Diaper Incontinent Incontinent Incontinent # Voids 6 1 1 # Bowel Movements 2 1 - Exam GENERAL EXAM: Alert, comfortable in no apparent distress. HEAD: Normocephalic. EYES: Normal reaction of pupils, equal size. NOSE: Clear with pink turbinates. THROAT: No erythema or exudates. NECK: No masses, no JVD. CHEST: No chest wall deformity. LUNGS: Equal air entry with HEENT crackles in the posterior bases.. CVS: S1 and S2 normal with no audible murmurs, irregular rhythm. ABDOMEN: Obese, soft, normal bowel sounds, no guarding or rigidity. Extremities: There is trace peripheral edema. No clubbing, no cyanosis. Peripheral pulses are intact. - Labs CBC & Chem 7: 08/18/16 05:54 08/23/16 15:19 Labs: Abnormal Lab Results - Last 24 Hours (Table) 08/22/16 08/23/16 08/23/16 Range/Units 20:58 06:11 11:42 Chloride (98-107) mmol/L Carbon Dioxide (22-30) mmol/L BUN (7-17) mg/dL Glucose (74-99) mg/dL POC Glucose (mg/dL) 178 H 120 H 117 H (75-99) mg/dL Magnesium (1.6-2.3) mg/dL 08/23/16 08/23/16 Range/Units 15:19 17:09 Chloride 91 L (98-107) mmol/L Carbon Dioxide 42 H* (22-30) mmol/L BUN 44 H (7-17) mg/dL Glucose 122 H (74-99) mg/dL POC Glucose (mg/dL) 125 H (75-99) mg/dL Magnesium 2.4 H (1.6-2.3) mg/dL Microbiology - Last 24 Hours (Table) 08/16/16 14:03 Blood Culture - Final Blood No Growth after 144 hours Assessment and Plan Plan: Impression: #1 Acute hypoxic respiratory failure secondary to suspected diastolic congestive heart failure, possible community-acquired pneumonia, suspect acute exacerbation of chronic obstructive pulmonary disease, chronic and ongoing tobacco dependence. CT angiogram ruled out large central pulmonary embolism. There is evidence of cardiomegaly with biatrial dilatation and small pericardial effusion. Findings suggest pulmonary artery hypertension and right- sided heart failure. There is also some scattered atelectasis/limited infiltrate of the lower lungs. There is some mild central alveolar edema. #2 Chronic and ongoing tobacco dependence. #3 Acute on chronic hypercapnic respiratory failure secondary to suspected obesity/hypoventilation syndrome versus obstructive sleep apnea. #4 Morbid obesity. #5 History of depression. #6 Hyperlipidemia. #7 Atrial fibrillation, possibly new onset. Anticoagulated with apixaban Plan: The patient was seen and evaluated by Dr. Holt. Her CAT scan and labs are reviewed. We will resume Lasix 40 mg IV every 12 hours. Continue to diurese the patient. Tinea with her pulmonary medications. She is again educated regarding the importance of complete smoking cessation. A NicoDerm patches in place. We'll continue to titrate down her FiO2 as tolerated. We'll continue to follow.
--- NOTE | 2016-08-23 17:50 | PN ---
DATE OF SERVICE: August 23, 2016 PRESENTING COMPLAINT: Shortness of breath. INTERVAL HISTORY: This patient presented with bilateral pneumonia and acute COPD exacerbation severe hypoxic respiratory failure on BiPAP. Patient today remains on high flow oxygen at about 7 liters a minute and is saturating around 90%. Patient is drowsy, but arousable and responsive. Patient is tolerating her diet. Review of systems done for constitutional cardiovascular, GI, pulmonary, relevant findings as above. Current medications include: 1. DuoNeb. 2. Atorvastatin. 3. Calcium. 4. Azithromycin. 5. Pulmicort. 6. Guaifenesin/dextromethorphan. Physical exam, vital signs: Temperature 97.2, pulse 76, respirations 20, blood pressure 109/60, oxygen saturation 88% on high flow nasal cannula at 6 liters a minute. General appearance: Patient is sitting in the chair, drowsy, but arousable, nasal cannula in place. Some shortness of breath noted. Pupils equal. Conjunctivae normal. Neck JVD unable to assess. Mass not palpable. Respiratory effort increased. Lungs decreased breath sounds, particularly on the right, prolonged expiration and wheezing. Cardiovascular: S1, S2 noted and normal. There is irregularity noted. No edema. Abdomen soft, nontender. Liver and spleen not palpable. Psychiatric: Patient is drowsy yet arousable, able to answer questions when asked. Investigations Accu-Cheks are noted. ASSESSMENT: 1. Bilateral pneumonia multilobar suspect gram-negative organism causing severe sepsis on presentation. Slowly improving. Patient is able to talk however looks tired again arousable and conversant when awoken. 2. Acute hypoxic respiratory failure. Patient responded to the BiPAP and is currently on high flow oxygen at approximately 6 liters. 3. Acute severe chronic obstructive pulmonary disease exacerbation in a current smoker. Again patient is slow to respond. 4. Chronic nicotine dependence. 5. Acute metabolic encephalopathy from pneumonia, sepsis improving slowly. 6. Morbid obesity, body mass index 47.7. 7. Persistent atrial fibrillation. PLAN: Continue current medication regimen and treatment plan. Patient continues to be slow to respond to interventions. Patient reminded once again the importance of not smoking. We will continue to follow. The history and physical was performed on the patient by me/nurse practitioner and attending/Dr. Dior. The relevant points of the history/physical/diagnoses/plan was discussed and is as dictated above. I performed a history and physical examination of this patient and discussed the same with the dictator. I agree with the dictator's note. Any additional findings/opinions, etc. will be noted.
[2016-08-23 21:00] LABS: Glucose,Whole Blood 236 mg/dL (75-99)
--- NOTE | 2016-08-23 21:06 | PN ---
DATE OF SERVICE: 08/22/2016 ADDENDUM: This patient was seen and examined by me. The patient was also seen and examined by nurse practitioner Ms. Lerner. The relevant points of the history, physical, diagnoses and plan were discussed with the nurse practitioner and are as dictated in her progress note.
[2016-08-23] MEDS: ATORVASTATIN 40 MG TAB PO SCH (21:11)
[2016-08-24] MEDS: OXYBUTYNIN CHLORIDE 5 MG TAB PO SCH ×3 (06:15→20:02)
[2016-08-24 06:28] LABS: Glucose,Whole Blood 125 mg/dL (75-99)
[2016-08-24] MEDS: INSULIN LISPRO (humaLOG) 300 UNIT/3 ML VIAL SQ SCH ×4 (06:30→20:38)
[2016-08-24] MEDS: BUDESONIDE 1 MG/2 ML NEBU INHALATION SCH ×2 (07:53→19:17)
[2016-08-24] MEDS: IPRATROPIUM-ALBUTEROL 3 ML NEB INHALATION SCH ×4 (07:53→19:17)
[2016-08-24] MEDS: APIXABAN 5 MG TAB PO SCH ×2 (08:58→20:01)
[2016-08-24] MEDS: FUROSEMIDE 10 MG/ML 4 ML VIAL IV SCH (08:58)
[2016-08-24] MEDS: methylPREDNISolone SOD SUCCI 40 MG/ML 1 ML VIAL IV SCH ×3 (08:58→23:20)
[2016-08-24] MEDS: METOPROLOL TARTRATE 25 MG TAB PO SCH ×2 (08:59→20:02)
[2016-08-24] MEDS: AZITHROMYCIN 500 MG TAB PO SCH (09:02)
[2016-08-24] MEDS: CHOLECALCIFEROL 1,000 UNIT TAB PO SCH (09:02)
[2016-08-24] MEDS: DIGOXIN 250 MCG TAB PO SCH (09:02)
[2016-08-24] MEDS: NICOTINE 21MG/24HR PATCH TRANSDERM SCH (09:56)
[2016-08-24 11:32] LABS: Glucose,Whole Blood 220 mg/dL (75-99)
--- NOTE | 2016-08-24 13:12 | P.PN ---
Subjective This is a pleasant 70-year-old female patient who resides in an adult foster care setting. She herself is a poor historian. She was brought to the emergency room via EMS after having complaints of increasing shortness of breath and difficulty breathing. Upon arrival she did have a pulse oximeter reading of 67% on room air. She was given bronchodilators and updraft treatmentsshe herself is a poor historian. She does have a history of hyperlipidemia, depression and chronic and ongoing tobacco dependence. No documented history of chronic obstructive pulmonary disease. Her EKG revealed evidence of atrial fibrillation possibly new. Her chest x-ray revealed some perihilar airspace disease along with suspicion of underlying COPD. There is also some vascular congestion and suspected congestive heart failure. Arterial blood gases on 50% FiO2 revealed a PaO2 of 69, pCO2 58, pH 7.33. Her troponins were negative. No leukocytosis. ProBNP 2069. Her liver enzymes are elevated AST 105, ALT 125. Iinfluenza screen is negative. The patient is seen again today 08/21/2016 in follow-up. She is more awake and alert today as compared to yesterday. She denies any worsening shortness of breath, cough or congestion. She is able to spend a little bit more time off the BiPAP. She is still requiring 8 L of high flow nasal cannula to maintain O2 saturations in the upper 80s. Blood and urine cultures reveal no growth. She is being anticoagulated with Eliquis. She remains on bronchodilators and antibiotics. The patient is seen today in follow-up 08/22/2016 on the selective care unit. She is more awake and alert today as compared to yesterday. She continues to use the BiPAP intermittently. Today's chest x-ray reveals bilateral areas of consolidation and small effusion with diffuse interstitial pattern. Still difficult to determine versus CHF and pneumonia. He is still recovering 7 L of high flow nasal cannula to maintain O2 saturations greater than 88%. She is currently afebrile. The patient is seen again today 08/23/2016 in follow-up. She is currently sitting up in a chair at the bedside. She is awake and alert in no acute distress. She is currently maintaining O2 saturations 88% and higher on 6 L of high flow per nasal cannula. Her CTA of the chest revealed cardiomegaly with biatrial dilatation and small pericardial effusion. There is also suggestive of pulmonary artery hypertension and right heart failure. There is bilateral limited infiltrate/atelectasis and some mild central alveolar edema. There is no evidence of large central pulmonary embolism. The patient is seen again today 08/24/2016 in follow-up on the selective care unit. She is awake and alert in no acute distress. She is continuing to improve daily. She is down to 4 L/m per nasal cannula and maintaining O2 saturations in the 90s. She denies any worsening shortness of breath. Objective - Vital Signs Vital signs: Vital Signs Temp 96.9 F L 08/24/16 08:45 Pulse 74 08/24/16 12:54 Resp 24 08/24/16 12:35 BP 98/55 08/24/16 08:45 Pulse Ox 89 L 08/24/16 08:45 Intake & Output 08/23/16 08/24/16 08/24/16 18:59 06:59 18:59 Intake Total 568 10 236 Balance 568 10 236 Weight 107.8 kg Intake: IV 10 10 0.9% NS @ 10 10 10 Oral 558 236 Other: Voiding Method Diaper Diaper Diaper Incontinent Incontinent Incontinent # Voids 1 1 # Bowel Movements 1 1 - Exam GENERAL EXAM: Alert, comfortable in no apparent distress. HEAD: Normocephalic. EYES: Normal reaction of pupils, equal size. NOSE: Clear with pink turbinates. THROAT: No erythema or exudates. NECK: No masses, no JVD. CHEST: No chest wall deformity. LUNGS: Equal air entry with HEENT crackles in the posterior bases.. CVS: S1 and S2 normal with no audible murmurs, irregular rhythm. ABDOMEN: Obese, soft, normal bowel sounds, no guarding or rigidity. Extremities: There is trace peripheral edema. No clubbing, no cyanosis. Peripheral pulses are intact. - Labs CBC & Chem 7: 08/18/16 05:54 08/23/16 15:19 Labs: Abnormal Lab Results - Last 24 Hours (Table) 08/23/16 08/23/16 08/23/16 Range/Units 15:19 17:09 20:50 Chloride 91 L (98-107) mmol/L Carbon Dioxide 42 H* (22-30) mmol/L BUN 44 H (7-17) mg/dL Glucose 122 H (74-99) mg/dL POC Glucose (mg/dL) 125 H 236 H (75-99) mg/dL Magnesium 2.4 H (1.6-2.3) mg/dL 08/24/16 08/24/16 Range/Units 06:27 11:30 Chloride (98-107) mmol/L Carbon Dioxide (22-30) mmol/L BUN (7-17) mg/dL Glucose (74-99) mg/dL POC Glucose (mg/dL) 125 H 220 H (75-99) mg/dL Magnesium (1.6-2.3) mg/dL Assessment and Plan Plan: Impression: #1 Acute hypoxic respiratory failure secondary to suspected diastolic congestive heart failure, possible community-acquired pneumonia, suspect acute exacerbation of chronic obstructive pulmonary disease, chronic and ongoing tobacco dependence. CT angiogram ruled out large central pulmonary embolism. There is evidence of cardiomegaly with biatrial dilatation and small pericardial effusion. Findings suggest pulmonary artery hypertension and right- sided heart failure. There is also some scattered atelectasis/limited infiltrate of the lower lungs. There is some mild central alveolar edema. #2 Chronic and ongoing tobacco dependence. #3 Acute on chronic hypercapnic respiratory failure secondary to suspected obesity/hypoventilation syndrome versus obstructive sleep apnea. #4 Morbid obesity. #5 History of depression. #6 Hyperlipidemia. #7 Atrial fibrillation, possibly new onset. Anticoagulated with apixaban Plan: The patient was seen and evaluated by Dr. Holt. Continue with her pulmonary medications. She is again educated regarding the importance of complete smoking cessation. A NicoDerm patch is in place. We'll continue to titrate down her FiO2 as tolerated. We'll continue to follow.
--- NOTE | 2016-08-24 14:24 | P.PN ---
Progress Note - Text This is an addendum to the progress note dictated. Patient has diastolic congestive heart failure acute on chronic. DNP note has been reviewed, I agree with a documented findings and plan of care. Patient was seen and examined.
[2016-08-24 16:44] LABS: Glucose,Whole Blood 131 mg/dL (75-99)
[2016-08-24] MEDS: FUROSEMIDE 40 MG TAB PO SCH (16:54)
[2016-08-24] MEDS: ATORVASTATIN 40 MG TAB PO SCH (20:02)
[2016-08-24 20:23] LABS: Glucose,Whole Blood 250 mg/dL (75-99)
--- NOTE | 2016-08-24 20:37 | PN ---
DATE OF SERVICE: 08/24/2016 PRESENTING COMPLAINT: Shortness of breath. INTERVAL HISTORY: This patient presented with bilateral pneumonia, acute COPD exacerbation and severe hypoxic respiratory failure, on BiPAP. Today patient remains on high-flow oxygen at 4 L/minute and is saturating around 90%. Patient is awake, alert and conversant. Review of systems done for constitutional, cardiovascular, GI, pulmonary; relevant findings as above. CURRENT MEDICATIONS: 1. DuoNeb. 2. Atorvastatin. 3. Calcium. 4. Azithromycin. 5. Pulmicort. 6. Guaifenesin/dextromethorphan. PHYSICAL EXAMINATION: VITAL SIGNS: Temperature 96.7, heart rate 76, respiratory rate 18, blood pressure 113/55, oxygen saturation 88% on high-flow cannula 3 L. GENERAL APPEARANCE: Patient is sitting in a chair, awake, alert, following commands. Nasal cannula in place. Shortness of breath improved. EYES: Pupils equal. Conjunctivae normal. NECK: JVD unable to assess. Mass not palpable. RESPIRATORY: Effort increased. LUNGS: Decreased breath sounds, particularly on the right. Diminished bases bilaterally. CARDIOVASCULAR: S1, S2 noted and normal. Trace edema to bilateral lower extremities. ABDOMEN: Soft, nontender. Liver and spleen not palpable. PSYCHIATRIC: Patient is drowsy yet arousable, able to answer questions when asked. INVESTIGATIONS: Accu-Cheks are noted. ASSESSMENT: 1. Bilateral pneumonia, multi-lobar. Suspect Gram-negative organism causing severe sepsis on presentation, slowly improving. Patient is able to talk and appears better today; however, oxygen saturation dropped after a cessation of oxygen therapy was performed. Patient became distressed and oxygen returned to 3 L nasal cannula, high flow. 2. Acute hypoxic respiratory failure. Patient responded to the BiPAP and is currently on high-flow oxygen at 3 L. 3. Acute severe chronic obstructive pulmonary disease exacerbation in a current smoker. Patient is still slow to respond. 4. Nicotine dependence. Suggesting nicotine gum and nicotine inhaler to assist the patient in quitting smoking. 5. Acute metabolic encephalopathy from pneumonia. Sepsis improving slowly. 6. Morbid obesity; body mass index 47.7. 7. Persistent atrial fibrillation, rate controlled. PLAN: Continue current medication regimen and treatment plan. Patient continues to be slow to respond to interventions. Oxygen was removed for a very short time this afternoon and patient became distressed and started experiencing respiratory distress; oxygen saturation dropped. Patient was returned to nasal cannula 3 L high flow and patient recovered nicely. Patient reminded once again the importance of not smoking. The history and physical was performed on the patient by me, nurse practitioner, and the attending, Dr. Dior. The relevant points of the history, physical, diagnoses and plan were discussed and are as dictated above.
[2016-08-25 05:49] LABS: Glucose,Whole Blood 165 mg/dL (75-99)
[2016-08-25] MEDS: INSULIN LISPRO (humaLOG) 300 UNIT/3 ML VIAL SQ SCH ×3 (06:45→18:20)
[2016-08-25] MEDS: OXYBUTYNIN CHLORIDE 5 MG TAB PO SCH ×2 (06:45→13:43)
[2016-08-25] MEDS: IPRATROPIUM-ALBUTEROL 3 ML NEB INHALATION SCH ×3 (07:53→16:36)
[2016-08-25] MEDS: BUDESONIDE 1 MG/2 ML NEBU INHALATION SCH (07:53)
[2016-08-25] MEDS: methylPREDNISolone SOD SUCCI 40 MG/ML 1 ML VIAL IV SCH ×2 (08:32→18:20)
[2016-08-25] MEDS: FUROSEMIDE 40 MG TAB PO SCH ×2 (08:32→13:44)
[2016-08-25] MEDS: APIXABAN 5 MG TAB PO SCH (08:32)
[2016-08-25] MEDS: DIGOXIN 250 MCG TAB PO SCH (08:32)
[2016-08-25] MEDS: NICOTINE 21MG/24HR PATCH TRANSDERM SCH (08:32)
[2016-08-25] MEDS: AZITHROMYCIN 500 MG TAB PO SCH (08:32)
[2016-08-25] MEDS: METOPROLOL TARTRATE 25 MG TAB PO SCH (08:33)
[2016-08-25 09:43] LABS: Anion Gap 8 mmol/L; Blood Urea Nitrogen 50 mg/dL (7-17); Calcium 9.4 mg/dL (8.4-10.2); Carbon Dioxide 34 mmol/L (22-30); Chloride 95 mmol/L (98-107); Glucose 263 mg/dL (74-99); Non-African American GFR(MDRD) >60 (>60 ml/min/1.73 sqM); Potassium 4.7 mmol/L (3.5-5.1); Sodium 137 mmol/L (137-145)
[2016-08-25 10:13] LABS: CH 30.7; CHCM 31.8; HDW 2.62; HGB 20.1 gm/dL (11.4-16.0); Hypochromasia Slight; MCH 30.6 pg (25.0-35.0); MCHC 31.6 g/dL (31.0-37.0); MCV 96.9 fL (80.0-100.0); Mean Platelet Volume 8.9; RBC 6.55 m/uL (3.80-5.40); RDW 12.7 % (11.5-15.5); WBC 10.6 k/uL (3.8-10.6)
[2016-08-25 10:18] LABS: HCT 63.4 % (34.0-46.0)
[2016-08-25 11:57] LABS: Glucose,Whole Blood 137 mg/dL (75-99)
[2016-08-25 12:33] VITALS: BP 98/57; RESP 22; TEMP 96.8
[2016-08-25] MEDS: CHOLECALCIFEROL 1,000 UNIT TAB PO SCH (13:43)
--- NOTE | 2016-08-25 15:50 | P.PN ---
Subjective This is a pleasant 70-year-old female patient who resides in an adult foster care setting. She herself is a poor historian. She was brought to the emergency room via EMS after having complaints of increasing shortness of breath and difficulty breathing. Upon arrival she did have a pulse oximeter reading of 67% on room air. She was given bronchodilators and updraft treatmentsshe herself is a poor historian. She does have a history of hyperlipidemia, depression and chronic and ongoing tobacco dependence. No documented history of chronic obstructive pulmonary disease. Her EKG revealed evidence of atrial fibrillation possibly new. Her chest x-ray revealed some perihilar airspace disease along with suspicion of underlying COPD. There is also some vascular congestion and suspected congestive heart failure. Arterial blood gases on 50% FiO2 revealed a PaO2 of 69, pCO2 58, pH 7.33. Her troponins were negative. No leukocytosis. ProBNP 2069. Her liver enzymes are elevated AST 105, ALT 125. Iinfluenza screen is negative. The patient is seen again today 08/21/2016 in follow-up. She is more awake and alert today as compared to yesterday. She denies any worsening shortness of breath, cough or congestion. She is able to spend a little bit more time off the BiPAP. She is still requiring 8 L of high flow nasal cannula to maintain O2 saturations in the upper 80s. Blood and urine cultures reveal no growth. She is being anticoagulated with Eliquis. She remains on bronchodilators and antibiotics. The patient is seen today in follow-up 08/22/2016 on the selective care unit. She is more awake and alert today as compared to yesterday. She continues to use the BiPAP intermittently. Today's chest x-ray reveals bilateral areas of consolidation and small effusion with diffuse interstitial pattern. Still difficult to determine versus CHF and pneumonia. He is still recovering 7 L of high flow nasal cannula to maintain O2 saturations greater than 88%. She is currently afebrile. The patient is seen again today 08/23/2016 in follow-up. She is currently sitting up in a chair at the bedside. She is awake and alert in no acute distress. She is currently maintaining O2 saturations 88% and higher on 6 L of high flow per nasal cannula. Her CTA of the chest revealed cardiomegaly with biatrial dilatation and small pericardial effusion. There is also suggestive of pulmonary artery hypertension and right heart failure. There is bilateral limited infiltrate/atelectasis and some mild central alveolar edema. There is no evidence of large central pulmonary embolism. The patient is seen again today 08/24/2016 in follow-up on the selective care unit. She is awake and alert in no acute distress. She is continuing to improve daily. She is down to 4 L/m per nasal cannula and maintaining O2 saturations in the 90s. She denies any worsening shortness of breath. On 08/25/2016 I'm seeing this patient in follow-up. She is feeling better. She is less short of breath. She is sitting up on a chair. FiO2 has been weaned down to 3 L/m nasal cannula. She is on oral Lasix. No nausea. No vomiting. No diarrhea. No chest pain. She seems to be much more alert and awake than her usual. She is tolerating her diet. Objective - Vital Signs Vital signs: Vital Signs Temp 96.8 F L 08/25/16 12:00 Pulse 82 08/25/16 12:20 Resp 22 08/25/16 12:00 BP 98/57 08/25/16 12:00 Pulse Ox 88 L 08/25/16 12:00 Intake & Output 08/24/16 08/25/16 08/25/16 18:59 06:59 18:59 Intake Total 1536 200 473 Output Total 1 Balance 1536 199 473 Weight 108 kg Intake: Oral 1536 200 473 Output: Urine 1 Other: Voiding Method Toilet Toilet Toilet Diaper Diaper Diaper Incontinent Incontinent Incontinent # Voids 2 2 2 # Bowel Movements 1 1 - Exam GENERAL EXAM: Alert, comfortable in no apparent distress. HEAD: Normocephalic. EYES: Normal reaction of pupils, equal size. NOSE: Clear with pink turbinates. THROAT: No erythema or exudates. NECK: No masses, no JVD. CHEST: No chest wall deformity. LUNGS: Equal air entry with HEENT crackles in the posterior bases.. CVS: S1 and S2 normal with no audible murmurs, irregular rhythm. ABDOMEN: Obese, soft, normal bowel sounds, no guarding or rigidity. Extremities: There is trace peripheral edema. No clubbing, no cyanosis. Peripheral pulses are intact. - Labs CBC & Chem 7: 08/25/16 08:47 08/25/16 08:47 Labs: Abnormal Lab Results - Last 24 Hours (Table) 08/24/16 08/24/16 08/25/16 Range/Units 16:41 20:21 05:45 RBC (3.80-5.40) m/uL Hgb (11.4-16.0) gm/dL Hct (34.0-46.0) % Chloride (98-107) mmol/L Carbon Dioxide (22-30) mmol/L BUN (7-17) mg/dL Glucose (74-99) mg/dL POC Glucose (mg/dL) 131 H 250 H 165 H (75-99) mg/dL 08/25/16 08/25/16 08/25/16 Range/Units 08:47 08:47 11:54 RBC 6.55 H (3.80-5.40) m/uL Hgb 20.1 H (11.4-16.0) gm/dL Hct 63.4 H* (34.0-46.0) % Chloride 95 L (98-107) mmol/L Carbon Dioxide 34 H (22-30) mmol/L BUN 50 H (7-17) mg/dL Glucose 263 H (74-99) mg/dL POC Glucose (mg/dL) 137 H (75-99) mg/dL Assessment and Plan Plan: Impression: #1 Acute hypoxic respiratory failure secondary to suspected diastolic congestive heart failure, possible community-acquired pneumonia, suspect acute exacerbation of chronic obstructive pulmonary disease, chronic and ongoing tobacco dependence. CT angiogram ruled out large central pulmonary embolism. There is evidence of cardiomegaly with biatrial dilatation and small pericardial effusion. Findings suggest pulmonary artery hypertension and right- sided heart failure. There is also some scattered atelectasis/limited infiltrate of the lower lungs. There is some mild central alveolar edema. #2 Chronic and ongoing tobacco dependence. #3 Acute on chronic hypercapnic respiratory failure secondary to suspected obesity/hypoventilation syndrome versus obstructive sleep apnea. #4 Morbid obesity. #5 History of depression. #6 Hyperlipidemia. #7 Atrial fibrillation, possibly new onset. Anticoagulated with apixaban #8, secondary erythrocytosis with elevated hemoglobin Plan Charge planning is in progress. The patient will be released on DuoNeb nebulized treatments around the clock, oxygen, oral Lasix, and a prednisone burst taper. Outpatient follow-up in regards to her COPD. Smoking cessation counseling was done. We'll follow.
[2016-08-25 16:49] VITALS: PULSE 80
[2016-08-25 16:59] LABS: Glucose,Whole Blood 154 mg/dL (75-99)
--- NOTE | 2016-08-25 17:56 | DS ---
DATE OF ADMISSION: 08/16/2016 DATE OF DISCHARGE: FINAL DIAGNOSES: 1. Bilateral, multilobar pneumonia, suspect gram-negative organism causing severe sepsis on presentation, also causing acute hypoxic respiratory failure. 2. Suspect patient has chronic hypoxic respiratory failure, now requiring down to 3-L oxygen. 3. Acute severe chronic obstructive pulmonary disease exacerbation in a current smoker. 4. Nicotine dependence. Patient is a cigarette smoker. 5. Acute metabolic encephalopathy from pneumonia, present on admission, now improved. 6. Morbid obesity, body mass index of 47.7. 7. Persistent atrial fibrillation, rate controlled. HOSPITAL COURSE: This is a patient, a longstanding smoker, presented rather miserable condition, extremely short of breath, could barely keep awake. Pulse ox was way down to 67%, found to have bilateral pneumonia. Responded well to antibiotics. By the time of discharge, oxygen requirement did come down to about 3 liters of oxygen. The patient also did require BiPAP. Patient was counseled several times against smoking. Currently, the patient's labs include potassium 4.7, BUN 50, creatinine 0.7. Chest CTA is only suggestive of some pulmonary hypertension. The patient's 2-D echocardiogram showed EF of 50 to 55%. Patient was in A. fib. Rate better controlled. On examination, lungs decreased breath sounds. Mild wheezing. Patient able to answer questions. Sitting up on bed. The patient has been tolerating her meals. DISCHARGE MEDICATIONS: 1. Vitamin D3 2000 units p.o. daily. 2. Lexapro 20 mg p.o. q.h.s. 3. Lasix 40 mg p.o. b.i.d. 4. Ditropan 5 mg p.o. t.i.d. 5. Zocor 80 mg q.h.s. 6. Nystatin topical b.i.d. p.r.n. 7. Robafen DM 5 to 10 mL p.o. q.6 p.r.n. 8. Risperdal 2 mg p.o. q.h.s. 9. Eliquis 5 mg p.o. b.i.d. 10. Digoxin 250 mcg p.o. daily. 11. Lasix 40 mg p.o. daily. 12. DuoNeb q.i.d. 13. Lopressor 25 p.o. b.i.d. 14. Nicotine 20 mg patch. 15. Prednisone taper. 16. Oxygen at 3 liters at all times. DISPOSITION: [facility]. Follow up with Dr. Marcelo at place and after discharge from [facility] follow up with Jero Mercado. Follow with Dr. Cruz. Discharge planning was done. Initially the patient's blood cultures were all negative.
--- NOTE | 2016-09-20 22:44 | PN ---
DATE OF SERVICE: 08/24/2016 ATTENDING NOTE: This patient was seen and examined by me. I reviewed the note of my nurse practitioner, Ms. Lerner, discussed and agree with the same. Patient was admitted with pneumonia and COPD exacerbation. Patient is on 4 L. Sitting up, talking. On examination, pulse ox 88% on 3 L. Blood pressure 113/55. Sitting up on a chair. RESPIRATORY: Effort increased. LUNGS: Decreased breath sounds. CARDIOVASCULAR: First and second sounds normal. PSYCH: Tired but able to answer questions. ASSESSMENT: 1. Bilateral pneumonia, severe, slow to respond. 2. Acute hypoxic respiratory failure. 3. Acute severe chronic obstructive pulmonary disease exacerbation. PLAN: Continue current medication and treatment plan. Will follow. Supportive care. Care was discussed with the patient.
--- NOTE | 2016-09-21 23:41 | PN ---
DATE OF SERVICE: 08/22/2016 ATTENDING NOTE: This patient was seen and examined by me. I reviewed the note of my nurse practitioner, Ms. Lerner. I discussed it with her and agree with the same. Patient was admitted with bilateral pneumonia and COPD exacerbation; has been on BiPAP and then on high-flow oxygen. She continues to insist on going down to smoke. On examination, afebrile. Blood pressure 116/68, pulse ox 89% on 3 liters of oxygen. LUNGS: Effort increased. Diminished breath sounds. Prolonged expiration and wheezing. PSYCH: Able to answer questions. CARDIOVASCULAR: First and second sounds normal. ASSESSMENT: 1. Bilateral pneumonia causing sepsis on presentation. 2. Acute hypoxic respiratory failure, on BiPAP and high-flow oxygen. PLAN: Continue current medication and treatment plan. Patient was again counseled against smoking.
--- NOTE | 2016-09-22 06:37 | PN ---
DATE OF SERVICE: 08/23/2016 ATTENDING NOTE: This patient was examined by me on 08/23/2016. I reviewed the note of my nurse practitioner, Ms. Lerner. Discussed and agreed with the same. The patient admitted with bilateral pneumonia and COPD exacerbation, using BiPAP and high flow oxygen that is 7 L. Drowsy, but arousable. Tolerating a diet. On examination, pulse ox 88% on oxygen, blood pressure 109/60. Sitting on a chair, drowsy, but arousable. LUNGS: Decreased breath sounds, ( ) expiration and wheezing. CARDIOVASCULAR: First and second sounds normal. No edema. Patient is able to answer simple questions. ASSESSMENT: 1. Bilateral pneumonia, multilobar. 2. Acute hypoxic respiratory failure, been on BiPAP and high flow oxygen. 3. Acute severe chronic obstructive pulmonary disease exacerbation, in a smoker. 4. Persistent atrial fibrillation. PLAN: Continue current medication and treatment plan. Prognosis is guarded. Patient is yet again told not to smoke.
== END 2016-08-25 18:31 | DRG 871 ==
LOC: EC 09:43 → SUPCPDRO 09:43 → 4MS4W 12:18 → 6SEL 14:34
PROVIDERS: ADMIT Hospitalist; ATTEND Hospitalist
DX: A41.50 Gram-negative sepsis, unspecified (principal); G93.41 Metabolic encephalopathy; J96.21 Acute and chronic respiratory failure with hypoxia; I50.33 Acute on chronic diastolic (congestive) heart failure; I95.9 Hypotension, unspecified; J18.9 Pneumonia, unspecified organism; I27.2 Other secondary pulmonary hypertension; J44.0 Chronic obstructive pulmonary disease with (acute) lower respiratory infection; Z99.81 Dependence on supplemental oxygen; E66.2 Morbid (severe) obesity with alveolar hypoventilation; J96.22 Acute and chronic respiratory failure with hypercapnia; J44.1 Chronic obstructive pulmonary disease with (acute) exacerbation; I48.1 Persistent atrial fibrillation; Z68.42 Body mass index [BMI] 45.0-49.9, adult; F41.9 Anxiety disorder, unspecified; M19.90 Unspecified osteoarthritis, unspecified site; R53.1 Weakness; F31.9 Bipolar disorder, unspecified; R32 Unspecified urinary incontinence; I49.3 Ventricular premature depolarization; F20.9 Schizophrenia, unspecified; E78.5 Hyperlipidemia, unspecified; F17.210 Nicotine dependence, cigarettes, uncomplicated; D75.1 Secondary polycythemia; Z79.899 Other long term (current) drug therapy; Z71.3 Dietary counseling and surveillance; Z71.6 Tobacco abuse counseling; Z98.51 Tubal ligation status; Z86.19 Personal history of other infectious and parasitic diseases
CPT/HCPCS: 36415; 36600; 71010; 71020; 71275; 80048; 80053; 81001; 82550; 82553; 82805; 83605; 83735; 83880; 84484; 85025; 85027; 85379; 85610; 85730; 87040; 87086; 87502; 93005; 93306; 94640; 94660; 94760; 96365; 96366; 96367; 99291

== ENCOUNTER 2019-10-18 13:12 | Emergency (ER) | payer MEDICARE, OTHER ==
[2019-10-18] MEDS ORDERED: OXYMETAZOLINE 0.05% NASL SPRAY 1 SPRAY BOTTLE NASAL STA (14:17)
--- NOTE | 2019-10-18 14:17 | ED ---
ENT HPI - General Chief complaint: ENT Stated complaint: Nose Bleed Time Seen by Provider: 10/18/19 13:29 Source: patient Mode of arrival: ambulatory Limitations: no limitations - History of Present Illness Initial comments: Patient is 74-year-old female presenting to the emergency Department via EMS with complaints of a nosebleed. She does admit to be on Eliquis for reason unknown. She comes from a [place] [facility], history of schizophrenia. Patient denies any pain at this time. She denies any injury, she states it just started bleeding with "messing with it". She denies recent fever, chills, shortness of breath. She does admit to being in every day smoker. She has no further complaints at this time. Upon arrival to the ER, her vitals are stable. - Related Data Home Medications Medication Instructions Recorded Confirmed Cholecalciferol [Vitamin D3 (25 2,000 unit PO DAILY 08/07/15 08/16/16 Mcg = 1000 Iu)] Escitalopram [Lexapro] 20 mg PO HS 08/07/15 08/16/16 Furosemide [Lasix] 40 mg PO DAILY 08/07/15 08/16/16 Oxybutynin Chloride [Ditropan] 5 mg PO TID@0700,1500,2300 08/07/15 08/16/16 Simvastatin [Zocor] 80 mg PO HS 08/07/15 08/16/16 Nystatin 100,000 Unit/gm Powd 1 applic TOPICAL BID PRN 08/16/16 08/16/16 [Mycostatin Powder] Robafen Dm Liquid 5 - 10 ml PO Q6H PRN 08/16/16 08/16/16 risperiDONE [RisperDAL] 2 mg PO HS 08/16/16 08/16/16 Previous Rx's Medication Instructions Recorded Apixaban [Eliquis] 5 mg PO BID tab 08/25/16 Digoxin [Lanoxin] 250 mcg PO DAILY #30 tab 08/25/16 Furosemide [Lasix] 40 mg PO DAILY #30 tab 08/25/16 Ipratropium-Albuterol Nebulize 3 ml INHALATION RT-QID #120 08/25/16 [Duoneb 0.5 mg-3 mg/3 ml Soln] ampul.neb Metoprolol Tartrate [Lopressor] 25 mg PO BID #60 tab 08/25/16 Nicotine 21Mg/24Hr Patch [Habitrol] 1 patch TRANSDERM DAILY #14 patch 08/25/16 predniSONE 10 mg PO DAILY #30 tab 08/25/16 Allergies Allergy/AdvReac Type Severity Reaction Status Date / Time No Known Allergies Allergy Verified 10/18/19 13:24 Review of Systems ROS Statement: Those systems with pertinent positive or pertinent negative responses have been documented in the HPI. ROS Other: All systems not noted in ROS Statement are negative. Past Medical History Past Medical History: COPD, Hyperlipidemia Additional Past Medical History / Comment(s): Pt recently admitted 08/07/15 to [facility] with hypokalemia, hypomagnesemia, metabolic encephalopathy. Other HX: anemia, hypoalbuminemia, protein calorie malnutrition, past electrolyte disturbances, 2012 abdominal wall cellulitis. History of Any Multi-Drug Resistant Organisms: None Reported Past Surgical History: Tubal Ligation Past Anesthesia/Blood Transfusion Reactions: No Reported Reaction Past Psychological History: Bipolar, Depression, Schizophrenia Smoking Status: Current every day smoker Past Alcohol Use History: Rare Past Drug Use History: None Reported - Past Family History Father Family Medical History: No Reported History Additional Family Medical History / Comment(s): Pt remembers her father as being healthy. She states he lived to be quite old but does not recall his age at the time of his . Mother Additional Family Medical History / Comment(s): Pt recalls her mother was obese. General Exam - General Exam Comments Initial Comments: GENERAL: Well-appearing, well-nourished and in no acute distress. HEAD: Atraumatic, normocephalic. EYES: Pupils equal round and reactive to light, extraocular movements intact, sclera anicteric, conjunctiva are normal. ENT: TMs normal, nares patent, oropharynx clear without exudates. Moist mucous membranes. Some dried blood around the nostrils, no active bleeding at this time. NECK: Normal range of motion, supple without lymphadenopathy or JVD. LUNGS: Breath sounds clear to auscultation bilaterally and equal. No wheezes rales or rhonchi. HEART: Regular rate and rhythm without murmurs, rubs or gallops. ABDOMEN: Soft, nontender, normoactive bowel sounds. No guarding, no rebound. No masses appreciated. : Deferred EXTREMITIES: Normal range of motion, no pitting or edema. No clubbing or cyanosis. NEUROLOGICAL: Normal speech, normal gait. PSYCH: Normal mood, normal affect. SKIN: Warm, Dry, normal turgor, no rashes or lesions noted. Limitations: no limitations Course Vital Signs 10/18/19 13:18 Temperature 97.5 F L Pulse Rate 93 Respiratory 20 Rate Blood Pressure 102/76 O2 Sat by Pulse 94 L Oximetry Medical Decision Making - Medical Decision Making Patient is a 74-year-old female here for a nosebleed on eliquis. Patient arrived with a nasal clamp, upon exam, there is no active bleeding. Patient was observed in the ER for about an hour with no active bleeding. I did discuss treatment options for her if it does restart. She will be sent home with a bottle of Afrin. Patient is agreement with this. Return parameters were discussed with the patient she verbalized understanding. Case discussed with Dr. Tam. Disposition Clinical Impression: Epistaxis Disposition: HOME SELF-CARE Condition: Stable Instructions (If sedation given, give patient instructions): Nosebleed (ED) Additional Instructions: Please return to the Emergency Department if symptoms worsen or any other concerns. If nose starts to bleed again, apply pressure for 5 minutes, blowout any blood clot, use Afrin spray. Repeat these procedures for additional bleeds. Follow-up with PCP. Is patient prescribed a controlled substance at d/c from ED?: No Referrals: Rob Hassan MD [Primary Care Provider] - 1-2 days
[2019-10-18 14:51] VITALS: BP 108/74; PULSE 90; RESP 18; TEMP 98
== END 2019-10-18 14:50 | disposition home or self-care (01) ==
LOC: EC 13:12
DX: R04.0 Epistaxis (principal); E78.5 Hyperlipidemia, unspecified; F31.9 Bipolar disorder, unspecified; F20.9 Schizophrenia, unspecified; F17.200 Nicotine dependence, unspecified, uncomplicated; Z79.899 Other long term (current) drug therapy
CPT/HCPCS: 99283

== ENCOUNTER 2020-03-11 13:59 | Inpatient (IN) | payer MEDICARE, OTHER ==
[2020-03-11] MEDS ORDERED: methylPREDNISolone SOD SUCCI 125 MG/2 ML VIAL IV STA (15:07)
[2020-03-11] MEDS ORDERED: ALBUTEROL HFA INHALER INHALATION STA (15:07)
--- NOTE | 2020-03-11 15:12 | ED ---
General Adult HPI - General Chief complaint: Shortness of Breath Stated complaint: SOB Time Seen by Provider: 03/11/20 14:59 Source: patient, RN notes reviewed, old records reviewed Mode of arrival: wheelchair Limitations: no limitations - History of Present Illness Initial comments: 74-year-old female presenting for evaluation of cough. History of COPD. History limited from the patient, she is currently residing in an [facility] home and is unable to give a detailed history. She was reported to have an increased cough and dyspnea. She denies chest pain. She denies fever. Denies nausea or vomiting. - Related Data Home Medications Medication Instructions Recorded Confirmed Cholecalciferol [Vitamin D3 (25 2,000 unit PO DAILY 08/07/15 08/16/16 Mcg = 1000 Iu)] Escitalopram [Lexapro] 20 mg PO HS 08/07/15 08/16/16 Furosemide [Lasix] 40 mg PO DAILY 08/07/15 08/16/16 Oxybutynin Chloride [Ditropan] 5 mg PO TID@0700,1500,2300 08/07/15 08/16/16 Simvastatin [Zocor] 80 mg PO HS 08/07/15 08/16/16 Nystatin 100,000 Unit/gm Powd 1 applic TOPICAL BID PRN 08/16/16 08/16/16 [Mycostatin Powder] Robafen Dm Liquid 5 - 10 ml PO Q6H PRN 08/16/16 08/16/16 risperiDONE [RisperDAL] 2 mg PO HS 08/16/16 08/16/16 Previous Rx's Medication Instructions Recorded Apixaban [Eliquis] 5 mg PO BID tab 08/25/16 Digoxin [Lanoxin] 250 mcg PO DAILY #30 tab 08/25/16 Furosemide [Lasix] 40 mg PO DAILY #30 tab 08/25/16 Ipratropium-Albuterol Nebulize 3 ml INHALATION RT-QID #120 08/25/16 [Duoneb 0.5 mg-3 mg/3 ml Soln] ampul.neb Metoprolol Tartrate [Lopressor] 25 mg PO BID #60 tab 08/25/16 Nicotine 21Mg/24Hr Patch [Habitrol] 1 patch TRANSDERM DAILY #14 patch 08/25/16 predniSONE 10 mg PO DAILY #30 tab 08/25/16 Allergies Allergy/AdvReac Type Severity Reaction Status Date / Time No Known Allergies Allergy Verified 03/11/20 16:53 Review of Systems ROS Statement: Those systems with pertinent positive or pertinent negative responses have been documented in the HPI. ROS Other: All systems not noted in ROS Statement are negative. Past Medical History Past Medical History: COPD, Hyperlipidemia Additional Past Medical History / Comment(s): Pt recently admitted 08/07/15 to [facility] with hypokalemia, hypomagnesemia, metabolic encephalopathy. Other HX: anemia, hypoalbuminemia, protein calorie malnutrition, past electrolyte disturbances, 2012 abdominal wall cellulitis. History of Any Multi-Drug Resistant Organisms: None Reported Past Surgical History: Tubal Ligation Past Anesthesia/Blood Transfusion Reactions: No Reported Reaction Past Psychological History: Bipolar, Depression, Schizophrenia Smoking Status: Unknown if ever smoked Past Alcohol Use History: Rare Past Drug Use History: None Reported - Past Family History Father Family Medical History: No Reported History Additional Family Medical History / Comment(s): Pt remembers her father as being healthy. She states he lived to be quite old but does not recall his age at the time of his . Mother Additional Family Medical History / Comment(s): Pt recalls her mother was obese. General Exam Limitations: no limitations General appearance: alert, in no apparent distress Head exam: Present: atraumatic, normocephalic Eye exam: Present: normal appearance, PERRL ENT exam: Present: normal exam Neck exam: Present: normal inspection. Absent: tenderness, meningismus Respiratory exam: Present: respiratory distress, wheezes, decreased breath sounds Cardiovascular Exam: Present: tachycardia, irregular rhythm GI/Abdominal exam: Present: soft. Absent: distended, tenderness, guarding Extremities exam: Present: normal capillary refill, pedal edema Neurological exam: Present: alert, oriented X3, CN II-XII intact. Absent: motor sensory deficit Psychiatric exam: Present: normal affect, normal mood Skin exam: Present: warm, dry, intact. Absent: cyanosis, diaphoretic Course Vital Signs 03/11/20 03/11/20 14:15 15:54 Temperature 98.8 F Pulse Rate 73 104 H Respiratory 18 22 Rate Blood Pressure 106/62 126/96 O2 Sat by Pulse 95 96 Oximetry EKG Findings - EKG Comments: EKG Findings:: EKG: Atrial fibrillation with RVR, right axis, low voltage, rate of 113, QRS duration 76, QTC 510, no ST segment elevation. Medical Decision Making - Medical Decision Making 74-year-old female with worsening cough and dyspnea, she has hypoxia and tachypnea upon arrival. She has decreased air entry and wheezing bilaterally. Chest x-ray questioning CHF boluses one view. Clinically the patient's presentation is more consistent with COPD. She has mild leukocytosis 12.0. Hemoglobin of 18 which appears chronic for this patient. She has an elevated CO2 consistent with chronic CO2 retention. Normal lactic acid. Negative troponin. Her influenza and coronavirus tests are negative. I did discuss case with Dr. Dior who will admit. - Lab Data Result diagrams: 03/11/20 15:10 03/11/20 15:10 Lab Results 03/11/20 03/11/20 03/11/20 Range/Units 15:10 15:10 15:10 WBC 12.0 H (3.8-10.6) k/uL RBC 6.04 H (3.80-5.40) m/uL Hgb 18.2 H (11.4-16.0) gm/dL Hct 58.4 H* (34.0-46.0) % MCV 96.8 (80.0-100.0) fL MCH 30.1 (25.0-35.0) pg MCHC 31.1 (31.0-37.0) g/dL RDW 14.9 (11.5-15.5) % Plt Count 221 (150-450) k/uL MPV 8.0 Neutrophils % 85 % Lymphocytes % 8 % Monocytes % 4 % Eosinophils % 1 % Basophils % 1 % Neutrophils # 10.2 H (1.3-7.7) k/uL Lymphocytes # 0.9 L (1.0-4.8) k/uL Monocytes # 0.5 (0-1.0) k/uL Eosinophils # 0.1 (0-0.7) k/uL Basophils # 0.1 (0-0.2) k/uL Hypochromasia Slight PT (9.0-12.0) sec INR (<1.2) APTT (22.0-30.0) sec D-Dimer (<0.60) mg/L FEU Sodium 137 (137-145) mmol/L Potassium 5.0 (3.5-5.1) mmol/L Chloride 99 (98-107) mmol/L Carbon Dioxide 36 H (22-30) mmol/L Anion Gap 2 mmol/L BUN 19 H (7-17) mg/dL Creatinine 0.64 (0.52-1.04) mg/dL Est GFR (CKD-EPI)AfAm >90 (>60 ml/min/1.73 sqM) Est GFR (CKD-EPI)NonAf 90 (>60 ml/min/1.73 sqM) Glucose 130 H (74-99) mg/dL Plasma Lactic Acid Raphael 1.1 (0.7-2.0) mmol/L Calcium 8.7 (8.4-10.2) mg/dL Magnesium 2.0 (1.6-2.3) mg/dL Total Bilirubin 0.6 (0.2-1.3) mg/dL AST 35 (14-36) U/L ALT 72 H (4-34) U/L Alkaline Phosphatase 126 (38-126) U/L Troponin I (0.000-0.034) ng/mL Total Protein 6.2 L (6.3-8.2) g/dL Albumin 3.1 L (3.5-5.0) g/dL Coronavirus (PCR) (Not Detectd) Influenza Type A RNA (Not Detectd) Influenza Type B (PCR) (Not Detectd) 03/11/20 03/11/20 03/11/20 Range/Units 15:10 15:10 15:59 WBC (3.8-10.6) k/uL RBC (3.80-5.40) m/uL Hgb (11.4-16.0) gm/dL Hct (34.0-46.0) % MCV (80.0-100.0) fL MCH (25.0-35.0) pg MCHC (31.0-37.0) g/dL RDW (11.5-15.5) % Plt Count (150-450) k/uL MPV Neutrophils % % Lymphocytes % % Monocytes % % Eosinophils % % Basophils % % Neutrophils # (1.3-7.7) k/uL Lymphocytes # (1.0-4.8) k/uL Monocytes # (0-1.0) k/uL Eosinophils # (0-0.7) k/uL Basophils # (0-0.2) k/uL Hypochromasia PT 11.9 (9.0-12.0) sec INR 1.2 H (<1.2) APTT 22.3 (22.0-30.0) sec D-Dimer 0.31 (<0.60) mg/L FEU Sodium (137-145) mmol/L Potassium (3.5-5.1) mmol/L Chloride (98-107) mmol/L Carbon Dioxide (22-30) mmol/L Anion Gap mmol/L BUN (7-17) mg/dL Creatinine (0.52-1.04) mg/dL Est GFR (CKD-EPI)AfAm (>60 ml/min/1.73 sqM) Est GFR (CKD-EPI)NonAf (>60 ml/min/1.73 sqM) Glucose (74-99) mg/dL Plasma Lactic Acid Raphael (0.7-2.0) mmol/L Calcium (8.4-10.2) mg/dL Magnesium (1.6-2.3) mg/dL Total Bilirubin (0.2-1.3) mg/dL AST (14-36) U/L ALT (4-34) U/L Alkaline Phosphatase (38-126) U/L Troponin I <0.012 (0.000-0.034) ng/mL Total Protein (6.3-8.2) g/dL Albumin (3.5-5.0) g/dL Coronavirus (PCR) Not Detected (Not Detectd) Influenza Type A RNA Not Detected (Not Detectd) Influenza Type B (PCR) Not Detected (Not Detectd) Disposition Clinical Impression: Acute exacerbation of chronic obstructive pulmonary disease Disposition: ADMITTED IP TO THIS HOSP Condition: Stable Is patient prescribed a controlled substance at d/c from ED?: No Referrals: Chidi Almaraz MD [Primary Care Provider] - 1-2 days Decision to Admit Reason: Admit from EC Decision Date: 03/11/20 Decision Time: 16:58
[2020-03-11 15:30] LABS: Basophils # (A) 0.1 k/uL (0-0.2); Basophils % (A) 1 %; Eosinophils # (A) 0.1 k/uL (0-0.7); Eosinophils % (A) 1 %; HGB 18.2 gm/dL (11.4-16.0); Hypochromasia Slight; Lymphocytes # (A) 0.9 k/uL (1.0-4.8); Lymphocytes % (A) 8 %; MCH 30.1 pg (25.0-35.0); MCHC 31.1 g/dL (31.0-37.0); MCV 96.8 fL (80.0-100.0); Monocytes # (A) 0.5 k/uL (0-1.0); Monocytes % (A) 4 %; Neutrophils # (A) 10.2 k/uL (1.3-7.7); Neutrophils % (A) 85 %; Platelet Count 221 k/uL (150-450); RBC 6.04 m/uL (3.80-5.40); RDW 14.9 % (11.5-15.5)
[2020-03-11 15:37] LABS: HCT 58.4 % (34.0-46.0)
[2020-03-11 15:42] LABS: ALT 72 U/L (4-34); AST 35 U/L (14-36); African American GFR (CKD) >90 (>60 ml/min/1.73 sqM); Albumin 3.1 g/dL (3.5-5.0); Alkaline Phosphatase 126 U/L (38-126); Anion Gap 2 mmol/L; Blood Urea Nitrogen 19 mg/dL (7-17); Calcium 8.7 mg/dL (8.4-10.2); Carbon Dioxide 36 mmol/L (22-30); Chloride 99 mmol/L (98-107); Glucose 130 mg/dL (74-99); Non-African American GFR(CKD) 90 (>60 ml/min/1.73 sqM); Sodium 137 mmol/L (137-145); Total Bilirubin 0.6 mg/dL (0.2-1.3); Total Protein 6.2 g/dL (6.3-8.2)
--- NOTE | 2020-03-11 15:54 | XR ---
EXAMINATION TYPE: XR chest 1V portable DATE OF EXAM: 03/11/2020 COMPARISON: Chest x-ray CTA chest August 22, 2016 HISTORY: Shortness of breath and pneumonia. TECHNIQUE: Single AP portable frontal upright view of the chest is obtained. FINDINGS: The osseous structures are demineralized. Degenerative change right glenohumeral joint red emonstrated. Persistent cardiomegaly. Persistent mild central vascular congestion and mild chronic pa renchymal changes. No new focal airspace opacity, pleural effusion, or pneumothorax seen bilaterally. IMPRESSION: Chronic changes and cardiomegaly with perhaps mild central vascular congestion. No signi ficant change from prior studies.
[2020-03-11 16:20] LABS: SARS-CoV-2 RNA Rapid Abbott Not Detected (Not Detectd)
[2020-03-11] MEDS ORDERED: IPRATROPIUM-ALBUTEROL 3 ML NEB INHALATION PRN (16:43)
[2020-03-11 16:50] LABS: D-Dimer 0.31 mg/L FEU (<0.60); INR 1.2 (<1.2); Partial Thromboplastin Time 22.3 sec (22.0-30.0); Prothrombin Time 11.9 sec (9.0-12.0)
[2020-03-11] MEDS ORDERED: methylPREDNISolone SOD SUCCI 125 MG/2 ML VIAL IV SCH (18:00)
[2020-03-11] MEDS ORDERED: IPRATROPIUM-ALBUTEROL 3 ML NEB INHALATION SCH (20:00)
[2020-03-11] MEDS: APIXABAN 5 MG TAB PO SCH (21:02)
[2020-03-11] MEDS ORDERED: NYSTAT-TRIAMCIN 100,000-0.1 UNIT/GM-% CREAM 30 GM TUBE TOPICAL PRN (22:39)
--- NOTE | 2020-03-11 22:42 | P.HPIM ---
History of Present Illness H&P Date: 03/11/20 Chief Complaint: short of breath History of presenting complaint: This is a 74-year-old patient who is a resident of [facility]. Limited historian. Presented with increasing cough and dyspnea. Denies any chest pain no obvious fever. No nausea vomiting. Has a history of schizophrenia. Normally able to get to appointments by the water transit. Is a smoker. Pretty tired right now. Review of systems: GEN.: Tired EYES: None HEENT: None NECK: None RESPIRATORY: Short of breath, cough] CARDIOVASCULAR: None GASTROINTESTINAL: None GENITOURINARY: None MUSCULOSKELETAL: None LYMPHATICS: None HEMATOLOGICAL: None PSYCHIATRY: Cognitive impairment NEUROLOGICAL: None Past medical history to include: COPD, hyperlipidemia bipolar, schizophrenia Social history: Smoking for 48 years. One pack a day. No alcohol. Resides at [place]. Assisted living Physical examination: VITAL SIGNS: 98.8, 73, 18, 106/62, 95% room air GENERAL: BMI 40, laying in bed, tired. EYES: Pupils equal. Conjunctiva normal. HEENT: External appearance of nose and ears normal, oral cavity grossly normal. NECK: JVD not raised; masses not palpable. HEART: First and second heart sounds are normal; no edema. LUNGS:[ Respiratory rate increased, decreased breath sounds. ABDOMEN: Soft, nontender, liver spleen not palpable, no masses palpable. PSYCH: [Tired but arousable NEUROLOGICAL: Cranial nerves grossly intact; no facial asymmetry, power and sensation grossly intact. LYMPHATICS: No lymph nodes palpable in the axilla and neck INVESTIGATIONS, reviewed in the clinical context: White count 12 hemoglobin 18.2 platelets 221 increased neutrophils potassium 5 creatinine 0.64 Influenza type A type B both negative COVID 19 PCR not detected EKG tracing personally reviewed by me-atrial flutter with variable rate 113 Chest x-ray film personally reviewed by me-portable, questionable infiltrate Assessment: -Pneumonia, suspect gram-negative organism -Acute COPD exacerbation and a smoker -Chronic nicotine dependence patient cigarette smoker -Schizophrenia -Hyperlipidemia -Persistent atrial fibrillation on eliquis -Chronic urinary incontinence Plan: Patient placed on bronchodilators, IV steroids home medications to be resumed. IV ceftriaxone. Past Medical History Past Medical History: COPD, Hyperlipidemia Additional Past Medical History / Comment(s): Pt recently admitted 08/07/15 to [facility] with hypokalemia, hypomagnesemia, metabolic encephalopathy. Other HX: anemia, hypoalbuminemia, protein calorie malnutrition, past electrolyte disturbances, 2012 abdominal wall cellulitis. History of Any Multi-Drug Resistant Organisms: None Reported Past Surgical History: Tubal Ligation Past Anesthesia/Blood Transfusion Reactions: No Reported Reaction Past Psychological History: Bipolar, Depression, Schizophrenia Smoking Status: Unknown if ever smoked Past Alcohol Use History: Rare Past Drug Use History: None Reported - Past Family History Father Family Medical History: No Reported History Additional Family Medical History / Comment(s): Pt remembers her father as being healthy. She states he lived to be quite old but does not recall his age at the time of his . Mother Additional Family Medical History / Comment(s): Pt recalls her mother was obese. Medications and Allergies Home Medications Medication Instructions Recorded Confirmed Type Cholecalciferol [Vitamin D3 (25 2,000 unit PO DAILY@0700 08/07/15 03/11/20 History Mcg = 1000 Iu)] Escitalopram [Lexapro] 20 mg PO HS@199908/07/15 03/11/20 History Simvastatin [Zocor] 80 mg PO HS@199908/07/15 03/11/20 History Albuterol Inhaler [Ventolin Hfa 2 puff INHALATION RT-QID 03/11/20 03/11/20 Histo ry Inhaler] Apixaban [Eliquis] 5 mg PO BID@0700,199903/11/20 03/11/20 History Budesonide/Formoterol Fumarate 2 puff INHALATION RT-BID@699,199903/11/20 03/11/20 History [Symbicort 160-4.5 Mcg Inhaler] Furosemide [Lasix] 40 mg PO DAILY@0700 03/11/20 03/11/20 History Guaifenesin/Dextromethorphan 10 ml PO QID PRN 03/11/20 03/11/20 History [Robitussin Cough-Chest Dm Liq] Hydrocortisone Cream 1 applic TOPICAL BID@0700,199903/11/20 03/11/20 History [Hydrocortisone 2.5% Cream] Loperamide [Imodium] 2 mg PO QID PRN 03/11/20 03/11/20 History Metoprolol Tartrate [Lopressor] 25 mg PO BID@0700,1600 03/11/20 03/11/20 History Mirabegron [Myrbetriq] 25 mg PO DAILY@0700 03/11/20 03/11/20 History Nystatin/Triamcin 1 applicate TOPICAL BID PRN 03/11/20 03/11/20 History [Nystatin-Triamcinolone Cream] Allergies Allergy/AdvReac Type Severity Reaction Status Date / Time No Known Allergies Allergy Verified 03/11/20 16:53 Physical Exam Vitals: Vital Signs Temp Pulse Resp BP Pulse Ox 03/11/20 22:05 94 20 104/52 96 03/11/20 21:49 92 L 03/11/20 21:38 96 22 126/92 88 L 03/11/20 19:27 104 H 18 127/88 90 L 03/11/20 18:56 98 20 141/99 91 L 03/11/20 17:06 122 H 22 123/90 95 03/11/20 15:54 104 H 22 126/96 96 03/11/20 14:15 98.8 F 73 18 106/62 95 Intake and Output 03/11/20 03/11/20 03/11/20 06:59 14:59 22:59 Other: Weight 109 kg Results CBC & Chem 7: 03/11/20 15:10 03/11/20 15:10 Labs: Abnormal Lab Results - Last 24 Hours (Table) 03/11/20 03/11/20 03/11/20 Range/Units 15:10 15:10 15:59 WBC 12.0 H (3.8-10.6) k/uL RBC 6.04 H (3.80-5.40) m/uL Hgb 18.2 H (11.4-16.0) gm/dL Hct 58.4 H* (34.0-46.0) % Neutrophils # 10.2 H (1.3-7.7) k/uL Lymphocytes # 0.9 L (1.0-4.8) k/uL INR 1.2 H (<1.2) Carbon Dioxide 36 H (22-30) mmol/L BUN 19 H (7-17) mg/dL Glucose 130 H (74-99) mg/dL ALT 72 H (4-34) U/L Total Protein 6.2 L (6.3-8.2) g/dL Albumin 3.1 L (3.5-5.0) g/dL
[2020-03-12] MEDS: ALBUTEROL HFA INHALER INHALATION PRN ×4 (00:44→15:31)
[2020-03-12] MEDS: ATORVASTATIN 40 MG TAB PO SCH ×2 (01:31→23:06)
[2020-03-12] MEDS: NICOTINE 21MG/24HR PATCH TRANSDERM SCH ×2 (01:32→08:13)
[2020-03-12] MEDS: methylPREDNISolone SOD SUCCI 40 MG/ML 1 ML VIAL IV SCH ×3 (01:32→16:41)
[2020-03-12] MEDS: ESCITALOPRAM 20 MG TAB PO SCH ×2 (01:42→23:06)
[2020-03-12] MEDS: FLUTICASONE 220 MCG INHALER INHALATION SCH ×3 (07:17→20:15)
[2020-03-12] MEDS ORDERED: IPRATROPIUM-ALBUTEROL 3 ML NEB INHALATION SCH (08:00)
[2020-03-12] MEDS ORDERED: ALBUTEROL HFA INHALER INHALATION SCH (08:00)
[2020-03-12] MEDS: FUROSEMIDE 40 MG TAB PO SCH (08:11)
[2020-03-12] MEDS: HYDROCORTISONE 1% CREAM 30 GM TUBE TOPICAL SCH ×2 (08:11→23:07)
[2020-03-12] MEDS: METOPROLOL TARTRATE 25 MG TAB PO SCH ×2 (08:11→16:43)
[2020-03-12] MEDS: APIXABAN 5 MG TAB PO SCH ×2 (08:11→23:06)
[2020-03-12] MEDS: TRIAMCINOLONE 0.1% CREAM 80 GM TUBE TOPICAL SCH ×2 (08:12→23:07)
[2020-03-12] MEDS: NON FORMULARY DRUG (Mirabegron [Myrbetriq] 25 MG Tab.Er.24h) PO SCH (08:12)
[2020-03-12] MEDS: NYSTATIN 100,000UNIT/GM CREAM 30 GM TUBE TOPICAL SCH ×2 (08:12→23:07)
--- NOTE | 2020-03-12 20:11 | P.PN ---
Progress Note - Text Progress Note Date: 03/12/20 Chief Complaint: short of breath History of presenting complaint: This is a 74-year-old patient who is a resident of [facility]. Limited historian. Presented with increasing cough and dyspnea. Denies any chest pain no obvious fever. No nausea vomiting. Has a history of schizophrenia. Normally able to get to appointments by the water transit. Is a smoker. Admitted with pneumonia, acute COPD exacerbation. Treated with IV steroids, bronchodilators, IV ceftriaxone. Today-feeling better. Sitting up in a chair. A bit less short of breath. Slight cough. Review of systems: Was done for constitutional, cardiovascular, GI, pulmonary. relevant finding as above Active Medications Albuterol Sulfate (Albuterol Hfa Inhaler) 2 puff INHALATION RT-QID PRN PRN Reason: Shortness Of Breath Or Wheezing Last Admin: 03/12/20 15:31 Dose: 2 puff Documented by: Apixaban (Apixaban 5 Mg Tab) 5 mg PO BID@ [facility] Last Admin: 03/12/20 08:11 Dose: 5 mg Documented by: Atorvastatin Calcium (Atorvastatin 40 Mg Tab) 40 mg PO [facility] Last Admin: 03/12/20 01:31 Dose: 40 mg Documented by: Escitalopram Oxalate (Escitalopram 20 Mg Tab) 20 mg PO HS@1999 [facility] Last Admin: 03/12/20 01:42 Dose: 20 mg Documented by: Fluticasone Propionate (Fluticasone 220 Mcg Inhaler) 2 puff INHALATION RT-BID [facility] Last Admin: 03/12/20 20:04 Dose: Not Given Documented by: Furosemide (Furosemide 40 Mg Tab) 40 mg PO DAILY@07 [facility] Last Admin: 03/12/20 08:11 Dose: 40 mg Documented by: Hydrocortisone (Hydrocortisone 1% Cream 30 Gm Tube) 1 applic TOPICAL BID@ [facility] Last Admin: 03/12/20 08:11 Dose: 1 applic Documented by: Ceftriaxone Sodium 1 gm/ (Sodium Chloride) 50 mls @ 100 mls/hr IVPB Q24H [facility] Last Admin: 03/12/20 01:32 Dose: 100 mls/hr Documented by: Methylprednisolone Sodium Succinate (Methylprednisolone Sod Succi 40 Mg/Ml 1 Ml Vial) 40 mg IV Q8HR [facility] Last Admin: 03/12/20 16:41 Dose: 40 mg Documented by: Metoprolol Tartrate (Metoprolol Tartrate 25 Mg Tab) 25 mg PO BID@0700,1600 [facility] Last Admin: 03/12/20 16:43 Dose: 25 mg Documented by: Nicotine (Nicotine 21mg/24hr Patch) 1 patch TRANSDERM DAILY [facility] Last Admin: 03/12/20 08:13 Dose: 1 patch Documented by: Non-Formulary Medication (Mirabegron [Myrbetriq]) 25 mg PO DAILY@0700 [facility] Last Admin: 03/12/20 08:12 Dose: Not Given Documented by: Nystatin (Nystatin 100,000unit/Gm Cream 30 Gm Tube) 1 applic TOPICAL BID [facility] Last Admin: 03/12/20 08:12 Dose: 1 applic Documented by: Triamcinolone Acetonide (Triamcinolone 0.1% Cream 80 Gm Tube) 1 applic TOPICAL BID [facility] Last Admin: 03/12/20 08:12 Dose: 1 applic Documented by: Physical examination: VITAL SIGNS: 97.5, 102, 18, 136/95,, 92% on 6 L GENERAL: Sitting up in a chair, short of breath, tired. EYES: Pupils equal. Conjunctiva normal. NECK: JVD not raised; masses not palpable. HEART: First and second heart sounds are normal; no edema. LUNGS:[ Respiratory rate increased, decreased breath sounds. ABDOMEN: Soft, nontender, liver spleen not palpable, no masses palpable. PSYCH: Answering questions INVESTIGATIONS, reviewed in the clinical context: White count 12 hemoglobin 18.2 platelets 221 increased neutrophils potassium 5 creatinine 0.64 Influenza type A type B both negative COVID 19 PCR not detected EKG tracing personally reviewed by me-atrial flutter with variable rate 113 Chest x-ray film personally reviewed by me-portable, questionable infiltrate Assessment: -Pneumonia, suspect gram-negative organism -Acute COPD exacerbation and a smoker -Chronic nicotine dependence patient cigarette smoker -Schizophrenia -Hyperlipidemia -Persistent atrial fibrillation on eliquis -Chronic urinary incontinence Plan: Continue bronchodilators, IV steroids , IV ceftriaxone. Care discussed with the patient.
[2020-03-12 22:38] LABS: Glucose,Whole Blood 200 mg/dL (75-99)
[2020-03-13] MEDS ORDERED: INSULIN ASPART (NovoLOG) 100 UNIT/ML VIAL SQ SCH (07:30)
[2020-03-13] MEDS: ALBUTEROL HFA INHALER INHALATION PRN ×4 (08:11→21:07)
[2020-03-13] MEDS: FLUTICASONE 220 MCG INHALER INHALATION SCH ×2 (08:12→21:07)
[2020-03-13] MEDS: methylPREDNISolone SOD SUCCI 40 MG/ML 1 ML VIAL IV SCH ×4 (08:28→23:57)
[2020-03-13] MEDS: NON FORMULARY DRUG (Mirabegron [Myrbetriq] 25 MG Tab.Er.24h) PO SCH (08:28)
[2020-03-13] MEDS: APIXABAN 5 MG TAB PO SCH ×2 (08:29→22:37)
[2020-03-13] MEDS: NICOTINE 21MG/24HR PATCH TRANSDERM SCH (08:29)
[2020-03-13] MEDS: METOPROLOL TARTRATE 25 MG TAB PO SCH ×2 (08:29→16:17)
[2020-03-13] MEDS: FUROSEMIDE 40 MG TAB PO SCH (08:29)
[2020-03-13] MEDS: NYSTATIN 100,000UNIT/GM CREAM 30 GM TUBE TOPICAL SCH ×2 (08:30→22:38)
[2020-03-13] MEDS: TRIAMCINOLONE 0.1% CREAM 80 GM TUBE TOPICAL SCH ×2 (08:30→22:38)
[2020-03-13] MEDS: HYDROCORTISONE 1% CREAM 30 GM TUBE TOPICAL SCH ×2 (08:30→22:38)
[2020-03-13] MEDS: INSULIN ASPART (NovoLOG) 100 UNIT/ML VIAL SQ SCH ×4 (08:33→22:39)
[2020-03-13 12:30] LABS: Glucose,Whole Blood 182 mg/dL (75-99)
[2020-03-13 17:33] LABS: Glucose,Whole Blood 192 mg/dL (75-99)
[2020-03-13 19:54] LABS: Glucose,Whole Blood 239 mg/dL (75-99)
--- NOTE | 2020-03-13 19:55 | P.PN ---
Progress Note - Text Progress Note Date: 03/13/20 Chief Complaint: short of breath History of presenting complaint: This is a 74-year-old patient who is a resident of [facility]. Limited historian. Presented with increasing cough and dyspnea. Denies any chest pain no obvious fever. No nausea vomiting. Has a history of schizophrenia. Normally able to get to appointments by the water transit. Is a smoker. Admitted with pneumonia, acute COPD exacerbation. Treated with IV steroids, bronchodilators, IV ceftriaxone. Today-continues to slowly improve. Breathing shortness of breath better.. Oral intake good Review of systems: Was done for constitutional, cardiovascular, GI, pulmonary. relevant finding as above Active Medications Albuterol Sulfate (Albuterol Hfa Inhaler) 2 puff INHALATION RT-QID PRN PRN Reason: Shortness Of Breath Or Wheezing Last Admin: 03/13/20 16:53 Dose: 2 puff Documented by: Apixaban (Apixaban 5 Mg Tab) 5 mg PO BID@ [facility] Last Admin: 03/13/20 08:29 Dose: 5 mg Documented by: Atorvastatin Calcium (Atorvastatin 40 Mg Tab) 40 mg PO [facility] Last Admin: 03/12/20 23:06 Dose: 40 mg Documented by: Escitalopram Oxalate (Escitalopram 20 Mg Tab) 20 mg PO HS@1999 [facility] Last Admin: 03/12/20 23:06 Dose: 20 mg Documented by: Fluticasone Propionate (Fluticasone 220 Mcg Inhaler) 2 puff INHALATION RT-BID [facility] Last Admin: 03/13/20 08:12 Dose: 2 puff Documented by: Furosemide (Furosemide 40 Mg Tab) 40 mg PO DAILY@07 [facility] Last Admin: 03/13/20 08:29 Dose: 40 mg Documented by: Hydrocortisone (Hydrocortisone 1% Cream 30 Gm Tube) 1 applic TOPICAL BID@ [facility] Last Admin: 03/13/20 08:30 Dose: 1 applic Documented by: Ceftriaxone Sodium 1 gm/ (Sodium Chloride) 50 mls @ 100 mls/hr IVPB Q24H [facility] Last Admin: 03/12/20 23:08 Dose: 100 mls/hr Documented by: Insulin Aspart (Insulin Aspart (Novolog) 100 Unit/Ml Vial) 0 unit SQ ACHS [facility]; Protocol Last Admin: 03/13/20 17:41 Dose: 5 unit Documented by: Methylprednisolone Sodium Succinate (Methylprednisolone Sod Succi 40 Mg/Ml 1 Ml Vial) 40 mg IV Q8HR [facility] Last Admin: 03/13/20 16:16 Dose: 40 mg Documented by: Metoprolol Tartrate (Metoprolol Tartrate 25 Mg Tab) 25 mg PO BID@0700,1600 [facility] Last Admin: 03/13/20 16:17 Dose: 25 mg Documented by: Nicotine (Nicotine 21mg/24hr Patch) 1 patch TRANSDERM DAILY [facility] Last Admin: 03/13/20 08:29 Dose: 1 patch Documented by: Non-Formulary Medication (Mirabegron [Myrbetriq]) 25 mg PO DAILY@0700 [facility] Last Admin: 03/13/20 08:28 Dose: Not Given Documented by: Nystatin (Nystatin 100,000unit/Gm Cream 30 Gm Tube) 1 applic TOPICAL BID [facility] Last Admin: 03/13/20 08:30 Dose: 1 applic Documented by: Triamcinolone Acetonide (Triamcinolone 0.1% Cream 80 Gm Tube) 1 applic TOPICAL BID [facility] Last Admin: 03/13/20 08:30 Dose: 1 applic Documented by: Physical examination: VITAL SIGNS: 97.9, 77, 19, 108/65, 88% on 5 L GENERAL: Propped up, short of breath, EYES: Pupils equal. Conjunctiva normal. NECK: JVD not raised; masses not palpable. HEART: First and second heart sounds are normal; no edema. LUNGS:[ Respiratory rate increased, decreased breath sounds. ABDOMEN: Soft, nontender, liver spleen not palpable, no masses palpable. PSYCH: Answering questions INVESTIGATIONS, reviewed in the clinical context: White count 12 hemoglobin 18.2 platelets 221 increased neutrophils potassium 5 creatinine 0.64 Pro-calcitonin 0.03 Influenza type A type B both negative COVID 19 PCR not detected EKG tracing personally reviewed by me-atrial flutter with variable rate 113 Chest x-ray film personally reviewed by me-portable, questionable infiltrate Assessment: -Pneumonia, suspect gram-negative organism and -acute hypoxic respiratory failure from COPD and pneumonia.-Slow to respond -Acute COPD exacerbation and a smoker-slow to respond -Chronic nicotine dependence patient cigarette smoker -Schizophrenia -Hyperlipidemia -Persistent atrial fibrillation on eliquis -Chronic urinary incontinence Plan: Continue bronchodilators, IV steroids , IV ceftriaxone. Care discussed with the patient. Had in his steroids. Swished to by mouth Omnicef
[2020-03-13] MEDS ORDERED: INSULIN ASPART (NovoLOG) 100 UNIT/ML VIAL SQ ONE (20:16)
[2020-03-13] MEDS: BUDESONIDE 1 MG/2 ML NEBU INHALATION SCH (21:07)
[2020-03-13] MEDS: ATORVASTATIN 40 MG TAB PO SCH (22:37)
[2020-03-13] MEDS: ESCITALOPRAM 20 MG TAB PO SCH (23:19)
[2020-03-14 07:42] LABS: Glucose,Whole Blood 114 mg/dL (75-99)
[2020-03-14] MEDS: INSULIN ASPART (NovoLOG) 100 UNIT/ML VIAL SQ SCH ×4 (07:43→21:34)
[2020-03-14] MEDS: CEFDINIR 300 MG CAP PO SCH ×2 (07:47→21:34)
[2020-03-14] MEDS: APIXABAN 5 MG TAB PO SCH ×2 (07:47→21:34)
[2020-03-14] MEDS: FUROSEMIDE 40 MG TAB PO SCH (07:47)
[2020-03-14] MEDS: METOPROLOL TARTRATE 25 MG TAB PO SCH ×2 (07:47→16:02)
[2020-03-14] MEDS: NON FORMULARY DRUG (Mirabegron [Myrbetriq] 25 MG Tab.Er.24h) PO SCH (07:48)
[2020-03-14] MEDS: NICOTINE 21MG/24HR PATCH TRANSDERM SCH (07:48)
[2020-03-14] MEDS: methylPREDNISolone SOD SUCCI 40 MG/ML 1 ML VIAL IV SCH ×2 (07:48→16:02)
[2020-03-14] MEDS: HYDROCORTISONE 1% CREAM 30 GM TUBE TOPICAL SCH ×2 (07:49→21:34)
[2020-03-14] MEDS: BUDESONIDE 1 MG/2 ML NEBU INHALATION SCH ×2 (08:37→20:34)
[2020-03-14] MEDS: ALBUTEROL HFA INHALER INHALATION PRN ×2 (08:37→12:36)
[2020-03-14] MEDS: FLUTICASONE 220 MCG INHALER INHALATION SCH ×2 (08:37→20:34)
[2020-03-14 09:12] LABS: Basophils % (A) 0 %; Eosinophils % (A) 0 %; HCT 54.4 % (34.0-46.0); HGB 16.9 gm/dL (11.4-16.0); Hypochromasia Moderate; Lymphocytes # (A) 0.5 k/uL (1.0-4.8); Lymphocytes % (A) 3 %; MCH 30.5 pg (25.0-35.0); MCHC 31.1 g/dL (31.0-37.0); MCV 97.9 fL (80.0-100.0); Mean Platelet Volume 8.4; Monocytes # (A) 0.3 k/uL (0-1.0); Monocytes % (A) 2 %; Neutrophils # (A) 14.6 k/uL (1.3-7.7); Neutrophils % (A) 94 %; Platelet Count 228 k/uL (150-450); RBC 5.55 m/uL (3.80-5.40); RDW 14.8 % (11.5-15.5); WBC 15.5 k/uL (3.8-10.6)
[2020-03-14] MEDS: NYSTATIN 100,000UNIT/GM CREAM 30 GM TUBE TOPICAL SCH ×2 (09:29→21:35)
[2020-03-14] MEDS: TRIAMCINOLONE 0.1% CREAM 80 GM TUBE TOPICAL SCH ×2 (09:29→21:35)
[2020-03-14 11:30] LABS: Glucose,Whole Blood 170 mg/dL (75-99)
--- NOTE | 2020-03-14 13:54 | US ---
EXAMINATION TYPE: US transvaginal DATE OF EXAM: 03/14/2020 COMPARISON: NONE CLINICAL HISTORY: bleeding, prolapse. TECHNIQUE: Transvaginal (TV). Date of LMP: unknown EXAM MEASUREMENTS: Uterus: 7.1 x 3.6 x 4.2 cm Endometrial Stripe: 0.6 cm Right Ovary: unable to visualize Left Ovary: unable to visualize 1. Uterus: Anteverted 2. Endometrium: anechoic area within ?fluid 3. Right Ovary: Obscured by overlying bowel gas 4. Left Ovary: Obscured by overlying bowel gas 5. Bilateral Adnexa: appears wnl 6. Posterior cul-de-sac: wnl IMPRESSION: Unremarkable study.
[2020-03-14 17:18] LABS: Glucose,Whole Blood 105 mg/dL (75-99)
[2020-03-14 20:07] LABS: Glucose,Whole Blood 229 mg/dL (75-99)
--- NOTE | 2020-03-14 20:21 | P.OBCN ---
History of Present Illness Consult date: 03/14/20 Requesting physician: Bo Dior Reason for consult: other (Vaginal bleeding, questionable vaginal prolapse/) Chief complaint: COPD, questionable vaginal bleeding, pelvic organ prolapse History of present illness: This is a 74-year-old patient that was admitted to the hospital on 03/11 for C OPD, patient is a known smoker for approximately 40 years 1 pack per day. Patient is a resident of an assisted living facility. She is a known history of schizophrenia. Patient is a very poor historian and it is difficult to ascertain any History from her. Patient does state that she has a history of 3 prior vaginal deliveries with no issues. She states she is unsure of when she went through the menopause, she does deny any vaginal bleeding that she is aware of. Review of Systems Constitutional: Denies chills, Denies fatigue, Denies fever Ears, nose, mouth and throat: Denies headache Cardiovascular: Reports leg edema Respiratory: Denies dyspnea Gastrointestinal: Reports diarrhea Genitourinary: Reports as per HPI Menstruation: Reports postmenopausal Past Medical History Past Medical History: COPD, Hyperlipidemia Additional Past Medical History / Comment(s): Pt recently admitted 08/07/15 to [facility] with hypokalemia, hypomagnesemia, metabolic encephalopathy. Other HX: anemia, hypoalbuminemia, protein calorie malnutrition, past electrolyte disturbances, 2012 abdominal wall cellulitis. History of Any Multi-Drug Resistant Organisms: None Reported Past Surgical History: Tubal Ligation Past Anesthesia/Blood Transfusion Reactions: No Reported Reaction Past Psychological History: Bipolar, Depression, Schizophrenia Additional Psychological History / Comment(s): Patient states she resides at [facility] Smoking Status: Current every day smoker Past Alcohol Use History: Rare Additional Past Alcohol Use History / Comment(s): Pt started smoking in 1971 and is a ppd smoker. Past Drug Use History: None Reported - Past Family History Father Family Medical History: No Reported History Additional Family Medical History / Comment(s): Pt remembers her father as being healthy. She states he lived to be quite old but does not recall his age at the time of his . Mother Additional Family Medical History / Comment(s): Pt recalls her mother was obese. Medications and Allergies Home Medications Medication Instructions Recorded Confirmed Type Cholecalciferol [Vitamin D3 (25 2,000 unit PO DAILY@0700 08/07/15 03/11/20 History Mcg = 1000 Iu)] Escitalopram [Lexapro] 20 mg PO HS@199908/07/15 03/11/20 History Simvastatin [Zocor] 80 mg PO HS@199908/07/15 03/11/20 History Albuterol Inhaler [Ventolin Hfa 2 puff INHALATION RT-QID 03/11/20 03/11/20 History Inhaler] Apixaban [Eliquis] 5 mg PO BID@0700,199903/11/20 03/11/20 History Budesonide/Formoterol Fumarate 2 puff INHALATION RT-BID@07,199903/11/20 03/11/20 History [Symbicort 160-4.5 Mcg Inhaler] Furosemide [Lasix] 40 mg PO DAILY@0700 03/11/20 03/11/20 History Guaifenesin/Dextromethorphan 10 ml PO QID PRN 03/11/20 03/11/20 History [Robitussin Cough-Chest Dm Liq] Hydrocortisone Cream 1 applic TOPICAL BID@0700,199903/11/20 03/11/20 History [Hydrocortisone 2.5% Cream] Loperamide [Imodium] 2 mg PO QID PRN 03/11/20 03/11/20 History Metoprolol Tartrate [Lopressor] 25 mg PO BID@0700,159903/11/20 03/11/20 History Mirabegron [Myrbetriq] 25 mg PO DAILY@0700 03/11/20 03/11/20 History Nystatin/Triamcin 1 applicate TOPICAL BID PRN 03/11/20 03/11/20 History [Nystatin-Triamcinolone Cream] Allergies Allergy/AdvReac Type Severity Reaction Status Date / Time No Known Allergies Allergy Verified 03/11/20 16:53 Exam Osteopathic Statement: *. No significant issues noted on an osteopathic structural exam other than those noted in the History and Physical/Consult. 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 Results Result Diagrams: 03/14/20 08:24 03/11/20 15:10 Abnormal Lab Results - Last 24 Hours (Table) 03/14/20 03/14/20 03/14/20 Range/Units 07:32 08:24 11:28 WBC 15.5 H (3.8-10.6) k/uL RBC 5.55 H (3.80-5.40) m/uL Hgb 16.9 H (11.4-16.0) gm/dL Hct 54.4 H (34.0-46.0) % Neutrophils # 14.6 H (1.3-7.7) k/uL Lymphocytes # 0.5 L (1.0-4.8) k/uL POC Glucose (mg/dL) 114 H 170 H (75-99) mg/dL 03/14/20 03/14/20 Range/Units 17:17 20:06 WBC (3.8-10.6) k/uL RBC (3.80-5.40) m/uL Hgb (11.4-16.0) gm/dL Hct (34.0-46.0) % Neutrophils # (1.3-7.7) k/uL Lymphocytes # (1.0-4.8) k/uL POC Glucose (mg/dL) 105 H 229 H (75-99) mg/dL Microbiology - Last 24 Hours (Table) 03/11/20 15:10 Blood Culture - Preliminary Blood No Growth after 72 hours Assessment and Plan (1) Vaginal bleeding Current Visit: Yes Status: Acute Code(s): N93.9 - ABNORMAL UTERINE AND VAGINAL BLEEDING, UNSPECIFIED SNOMED Code(s): 276841870 (2) Pelvic prolapse Current Visit: Yes Status: Acute Code(s): N81.9 - FEMALE GENITAL PROLAPSE, UNSPECIFIED SNOMED Code(s): 03001407 Plan: This 74-year-old female was admitted on 1112 4 COPD exacerbation, yesterday the aide felt she saw some vaginal bleeding when she was cleaning her up, and questionable bulge therefore consult was placed for gynecology to evaluate. Ultrasound was ordered which was normal in nature uterus is not enlarged and endometrial lining was thin at 0.6 cm. On exam no evidence of bleeding, or pelvic organ prolapse. Patient is a poor historian and it was difficult to obtain any history from this patient. I do not feel she needs any further workup at this time, thank you for the consult of this patient if you should have A further questions please feel free to reach out thank you
--- NOTE | 2020-03-14 21:32 | P.PN ---
Progress Note - Text Progress Note Date: 03/14/20 Chief Complaint: short of breath History of presenting complaint: This is a 74-year-old patient who is a resident of [facility]. Limited historian. Presented with increasing cough and dyspnea. Denies any chest pain no obvious fever. No nausea vomiting. Has a history of schizophrenia. Normally able to get to appointments by the water transit. Is a smoker. Admitted with pneumonia, acute COPD exacerbation. Treated with IV steroids, bronchodilators, IV ceftriaxone. Today-breathing better. Oral intake better.Kelli reported there was significant vaginal bleeding she noted and questionable prolapse. Review of systems: Was done for constitutional, cardiovascular, GI, pulmonary. relevant finding as above Active Medications Albuterol Sulfate (Albuterol Hfa Inhaler) 2 puff INHALATION RT-QID PRN PRN Reason: Shortness Of Breath Or Wheezing Last Admin: 03/14/20 12:36 Dose: 2 puff Documented by: Apixaban (Apixaban 5 Mg Tab) 5 mg PO BID@ [facility] Last Admin: 03/14/20 07:47 Dose: 5 mg Documented by: Atorvastatin Calcium (Atorvastatin 40 Mg Tab) 40 mg PO [facility] Last Admin: 03/13/20 22:37 Dose: 40 mg Documented by: Budesonide (Budesonide 1 Mg/2 Ml Nebu) 1 mg INHALATION RT-BID [facility] Last Admin: 03/14/20 20:34 Dose: Not Given Documented by: Cefdinir (Cefdinir 300 Mg Cap) 300 mg PO BID [facility] Last Admin: 03/14/20 07:47 Dose: 300 mg Documented by: Escitalopram Oxalate (Escitalopram 20 Mg Tab) 20 mg PO HS@1999 [facility] Last Admin: 03/13/20 23:19 Dose: 20 mg Documented by: Fluticasone Propionate (Fluticasone 220 Mcg Inhaler) 2 puff INHALATION RT-BID [facility] Last Admin: 03/14/20 20:34 Dose: Not Given Documented by: Furosemide (Furosemide 40 Mg Tab) 40 mg PO DAILY@07 [facility] Last Admin: 03/14/20 07:47 Dose: 40 mg Documented by: Hydrocortisone (Hydrocortisone 1% Cream 30 Gm Tube) 1 applic TOPICAL BID@ [facility] Last Admin: 03/14/20 07:49 Dose: 1 applic Documented by: Insulin Aspart (Insulin Aspart (Novolog) 100 Unit/Ml Vial) 0 unit SQ ACHS [facility]; Protocol Last Admin: 03/14/20 17:25 Dose: Not Given Documented by: Methylprednisolone Sodium Succinate (Methylprednisolone Sod Succi 40 Mg/Ml 1 Ml Vial) 40 mg IV Q8HR [facility] Last Admin: 03/14/20 16:02 Dose: 40 mg Documented by: Metoprolol Tartrate (Metoprolol Tartrate 25 Mg Tab) 25 mg PO BID@0700,1600 [facility] Last Admin: 03/14/20 16:02 Dose: 25 mg Documented by: Nicotine (Nicotine 21mg/24hr Patch) 1 patch TRANSDERM DAILY [facility] Last Admin: 03/14/20 07:48 Dose: 1 patch Documented by: Non-Formulary Medication (Mirabegron [Myrbetriq]) 25 mg PO DAILY@0700 [facility] Last Admin: 03/14/20 07:48 Dose: Not Given Documented by: Nystatin (Nystatin 100,000unit/Gm Cream 30 Gm Tube) 1 applic TOPICAL BID [facility] Last Admin: 03/14/20 09:29 Dose: 1 applic Documented by: Triamcinolone Acetonide (Triamcinolone 0.1% Cream 80 Gm Tube) 1 applic TOPICAL BID [facility] Last Admin: 03/14/20 09:29 Dose: 1 applic Documented by: Physical examination: VITAL SIGNS: 97.4, 79, 17, 109 with 67, 92% on 5 L GENERAL:sitting up in bed, less short of breath EYES: Pupils equal. Conjunctiva normal. NECK: JVD not raised; masses not palpable. HEART: First and second heart sounds are normal; no edema. LUNGS:[ Respiratory rate increased, decreased breath sounds. ABDOMEN: Soft, nontender, liver spleen not palpable, no masses palpable. PSYCH: Answering questions INVESTIGATIONS, reviewed in the clinical context: White count 15.5 hemoglobin 16.9 Transvaginal ultrasound-unremarkable Previous testing White count 12 hemoglobin 18.2 platelets 221 increased neutrophils potassium 5 creatinine 0.64 Pro-calcitonin 0.03 Influenza type A type B both negative COVID 19 PCR not detected EKG tracing personally reviewed by me-atrial flutter with variable rate 113 Chest x-ray film personally reviewed by me-portable, questionable infiltrate Assessment: -Pneumonia, suspect gram-negative organism and -acute hypoxic respiratory failure from COPD and pneumonia.-Slow to respond -Acute COPD exacerbation and a smoker-slow to respond -Chronic nicotine dependence patient cigarette smoker -Schizophrenia -Hyperlipidemia -Persistent atrial fibrillation on eliquis -Chronic urinary incontinence -Vaginal bleeding with some prolapse reported by the nurse.Dr. lee from [facility] saw the patient. No evidence of the same. Examination was unremarkable.transvaginal ultrasound unremarkable. Plan: Continue bronchodilators, IV steroids , Omnicef. Hopefully discharge tomorrow.
[2020-03-14] MEDS: ESCITALOPRAM 20 MG TAB PO SCH (21:34)
[2020-03-14] MEDS: ATORVASTATIN 40 MG TAB PO SCH (21:34)
[2020-03-14 21:42] VITALS: RESP 20
[2020-03-15 04:54] VITALS: BP 138/95; TEMP 98.1
[2020-03-15 07:46] LABS: Glucose,Whole Blood 181 mg/dL (75-99)
[2020-03-15] MEDS: NICOTINE 21MG/24HR PATCH TRANSDERM SCH (08:45)
[2020-03-15] MEDS: APIXABAN 5 MG TAB PO SCH (08:45)
[2020-03-15] MEDS: METOPROLOL TARTRATE 25 MG TAB PO SCH (08:45)
[2020-03-15] MEDS: FUROSEMIDE 40 MG TAB PO SCH (08:46)
[2020-03-15] MEDS: INSULIN ASPART (NovoLOG) 100 UNIT/ML VIAL SQ SCH ×2 (08:46→12:33)
[2020-03-15] MEDS: NON FORMULARY DRUG (Mirabegron [Myrbetriq] 25 MG Tab.Er.24h) PO SCH (08:46)
[2020-03-15] MEDS: CEFDINIR 300 MG CAP PO SCH (08:46)
[2020-03-15] MEDS: TRIAMCINOLONE 0.1% CREAM 80 GM TUBE TOPICAL SCH (08:47)
[2020-03-15] MEDS: HYDROCORTISONE 1% CREAM 30 GM TUBE TOPICAL SCH (08:47)
[2020-03-15] MEDS: NYSTATIN 100,000UNIT/GM CREAM 30 GM TUBE TOPICAL SCH (08:47)
[2020-03-15] MEDS: ALBUTEROL HFA INHALER INHALATION PRN (08:57)
[2020-03-15] MEDS: FLUTICASONE 220 MCG INHALER INHALATION SCH (08:58)
[2020-03-15] MEDS ORDERED: predniSONE 20 MG TAB PO SCH (09:00)
[2020-03-15] MEDS: BUDESONIDE 1 MG/2 ML NEBU INHALATION SCH (09:13)
[2020-03-15 11:28] VITALS: PULSE 82
[2020-03-15 12:17] LABS: Glucose,Whole Blood 72 mg/dL (75-99)
--- NOTE | 2020-03-15 23:11 | P.DS ---
Providers Date of admission: 03/11/20 16:58 Expected date of discharge: 03/15/20 Attending physician: Bo Dior Consults: 03/14/20 11:26 Consult Physician Routine Consulting Provider: Brooklyn Chaidez Consult Reason/Comments: vaginal bleeding/possible prolapse Do you want consulting provider notified?: Yes Primary care physician: [facility] Course: Chief Complaint: short of breath History of presenting complaint: This is a 74-year-old patient who is a resident of [facility]. Limited historian. Presented with increasing cough and dyspnea. Denies any chest pain no obvious fever. No nausea vomiting. Has a history of schizophrenia. Normally able to get to appointments by the water transit. Is a smoker. Admitted with pneumonia, acute COPD exacerbation. Treated with IV steroids, bronchodilators, IV ceftriaxone. There is some concern about bleeding from the vaginal area. Patient was seen by [employer]. Vaginal ultrasound was unremarkable. No evidence of bleeding or any prolapse was noted. Hemoglobin remained stable. Today-feeling better. Breathing improved. Oral intake fair.. Consultation: Dr. Chaidez from [employer] [facility] Physical examination: VITAL SIGNS: 98.1, 90, 20, 138.95, 96% on 4 L GENERAL:sitting up in bed, breathing better EYES: Pupils equal. Conjunctiva normal. NECK: JVD not raised; masses not palpable. HEART: First and second heart sounds are normal; no edema. LUNGS:[ Respiratory rate increased, decreased breath sounds. ABDOMEN: Soft, nontender, liver spleen not palpable, no masses palpable. PSYCH: Answering questions INVESTIGATIONS, reviewed in the clinical context: White count 15.5 hemoglobin 16.9 Transvaginal ultrasound-unremarkable Previous testing White count 12 hemoglobin 18.2 platelets 221 increased neutrophils potassium 5 creatinine 0.64 Pro-calcitonin 0.03 Influenza type A type B both negative COVID 19 PCR not detected EKG tracing personally reviewed by me-atrial flutter with variable rate 113 Chest x-ray film personally reviewed by me-portable, questionable infiltrate Assessment: -Pneumonia, suspect gram-negative organism POA -acute hypoxic respiratory failure from COPD and pneumonia.-POA -Acute COPD exacerbation and a POA -Chronic nicotine dependence patient cigarette smoker -Schizophrenia -Hyperlipidemia -Persistent atrial fibrillation on eliquis -Chronic urinary incontinence -Vaginal bleeding with some prolapse reported by the nurse.Dr. tram from [employer] saw the patient. No evidence of the same. Examination was unremarkable.transvaginal ultrasound unremarkable. [facility]position: [facility] Patient Condition at Discharge: Stable Plan - Discharge Summary Discharge Rx Participant: No New Discharge Prescriptions: New Ipratropium-Albuterol Nebulize [Duoneb 0.5 mg-3 mg/3 ml Soln] 3 ml INHALATION TID #90 neb Nicotine 21Mg/24Hr Patch [Habitrol] 1 patch TRANSDERM DAILY #14 patch Atorvastatin [Lipitor] 40 mg PO HS #30 tab Nystatin 100,000Unit/gm Cream [Mycostatin Cream] 1 applic TOPICAL BID applic Cefdinir [Omnicef] 300 mg PO BID #6 cap predniSONE 10 mg PO DAILY #30 tab Continue Cholecalciferol [Vitamin D3 (25 Mcg = 1000 Iu)] 2,000 unit PO DAILY@0700 Escitalopram [Lexapro] 20 mg PO HS@1999 Budesonide/Formoterol Fumarate [Symbicort 160-4.5 Mcg Inhaler] 2 puff INHALATION RT-BID@699,1999 Albuterol Inhaler [Ventolin Hfa Inhaler] 2 puff INHALATION RT-QID Guaifenesin/Dextromethorphan [Robitussin Cough-Chest Dm Liq] 10 ml PO QID PRN PRN Reason: Cough Nystatin/Triamcin [Nystatin-Triamcinolone Cream] 1 applicate TOPICAL BID PRN PRN Reason: Skin Irritation Mirabegron [Myrbetriq] 25 mg PO DAILY@0700 Metoprolol Tartrate [Lopressor] 25 mg PO BID@0700,1600 Loperamide [Imodium] 2 mg PO QID PRN PRN Reason: Diarrhea Hydrocortisone Cream [Hydrocortisone 2.5% Cream] 1 applic TOPICAL BID@699,1999 Furosemide [Lasix] 40 mg PO DAILY@07 Apixaban [Eliquis] 5 mg PO BID@699,1999 Discontinued Simvastatin [Zocor] 80 mg PO HS@1999 Discharge Medication List Cholecalciferol [Vitamin D3 (25 Mcg = 1000 Iu)] 2,000 unit PO DAILY@0700 08/07/15 [History] Escitalopram [Lexapro] 20 mg PO HS@199908/07/15 [History] Albuterol Inhaler [Ventolin Hfa Inhaler] 2 puff INHALATION RT-QID 11/12/20 [History] Apixaban [Eliquis] 5 mg PO BID@0700,199903/11/20 [History] Budesonide/Formoterol Fumarate [Symbicort 160-4.5 Mcg Inhaler] 2 puff INHALATION RT-BID@07,199903/11/20 [History] Furosemide [Lasix] 40 mg PO DAILY@0700 03/11/20 [History] Guaifenesin/Dextromethorphan [Robitussin Cough-Chest Dm Liq] 10 ml PO QID PRN [History] Hydrocortisone Cream [Hydrocortisone 2.5% Cream] 1 applic TOPICAL BID@699,199903/11/20 [History] Loperamide [Imodium] 2 mg PO QID PRN 03/11/20 [History] Metoprolol Tartrate [Lopressor] 25 mg PO BID@0700,159903/11/20 [History] Mirabegron [Myrbetriq] 25 mg PO DAILY@0700 03/11/20 [History] Nystatin/Triamcin [Nystatin-Triamcinolone Cream] 1 applicate TOPICAL BID PRN 03/11/20 [History] Atorvastatin [Lipitor] 40 mg PO HS #30 tab 03/15/20 [Rx] Cefdinir [Omnicef] 300 mg PO BID #6 cap 03/15/20 [Rx] Ipratropium-Albuterol Nebulize [Duoneb 0.5 mg-3 mg/3 ml Soln] 3 ml INHALATION TID #90 neb 03/15/20 [Rx] Nicotine 21Mg/24Hr Patch [Habitrol] 1 patch TRANSDERM DAILY #14 patch 03/15/20 [Rx] Nystatin 100,000Unit/gm Cream [Mycostatin Cream] 1 applic TOPICAL BID applic 03/15/20 [Rx] predniSONE 10 mg PO DAILY #30 tab 03/15/20 [Rx] Follow up Appointment(s)/Referral(s): Chidi Almaraz MD [Primary Care Provider] - 1-2 days (office calls patient to let them know when they will be seeing her.) Patient Instructions/Handouts: Fall Prevention for Older Adults (ED), COPD (Chronic Obstructive Pulmonary Disease) (ED) Activity/Diet/Wound Care/Special Instructions: pt will be sent home with home oxygen s/t hypoxia from COPD. pt will be sent home with a nebulizer s/t COPD he will be sent with duoneb three times a day no smoking Discharge Disposition: HOME SELF-CARE
== END 2020-03-15 15:15 | disposition home or self-care (01) | DRG 177 ==
LOC: EEVIPCON 13:59 → EC 13:59 → 4SSUR 16:58 → 6NMEDSUR 03-12 19:38
PROVIDERS: ADMIT Hospitalist; ATTEND Hospitalist
DX: J15.6 Pneumonia due to other Gram-negative bacteria (principal); J96.01 Acute respiratory failure with hypoxia; J44.0 Chronic obstructive pulmonary disease with (acute) lower respiratory infection; J44.1 Chronic obstructive pulmonary disease with (acute) exacerbation; I48.19 Other persistent atrial fibrillation; E87.2 Acidosis; F17.210 Nicotine dependence, cigarettes, uncomplicated; E11.9 Type 2 diabetes mellitus without complications; E78.5 Hyperlipidemia, unspecified; F20.9 Schizophrenia, unspecified; R32 Unspecified urinary incontinence; Z79.01 Long term (current) use of anticoagulants; Z79.51 Long term (current) use of inhaled steroids; Z79.899 Other long term (current) drug therapy; Z20.828 Contact with and (suspected) exposure to other viral communicable diseases; Z98.51 Tubal ligation status
CPT/HCPCS: 36415; 71045; 76830; 80053; 83036; 83605; 83735; 84145; 84484; 85025; 85379; 85610; 85730; 87040; 87502; 87635; 93005; 94640; 94760; 96365; 96374; 96376; 99285

== ENCOUNTER 2020-05-25 17:38 | Inpatient (IN) | payer MEDICARE, OTHER ==
[2020-05-25] MEDS ORDERED: DEXAMETHASONE SOD PHOSPHATE 10 MG/ML 1 ML VIAL IV STA (18:03)
--- NOTE | 2020-05-25 18:04 | ED ---
General Adult HPI - General Chief complaint: Shortness of Breath Stated complaint: MAURICE Time Seen by Provider: 05/25/20 17:47 Source: patient Mode of arrival: EMS Limitations: no limitations - History of Present Illness Initial comments: Dictation was produced using [employer] dictation software. please excuse any grammatical, word or spelling errors. This patient was cared for during a federal and state declared state of emergency secondary to Covid 19 Chief Complaint: 74-year-old female with past medical history of COPD, dyslipidemia presents to the emergency department from [facility] for lethargy, weakness and hypoxia History of Present Illness: 74-year-old female she is a resident at one of the local adult [facility]. EMS is not currently at the bedside to obtain HPI. HPI is obtained from patient and nurse who received report from EMS. According to EMS patient has been having a few days of lethargy, excessive sleeping. She's also been having hypoxia. Patient's was be wearing oxygen however hasn't been wearing them due to noncompliance. Patient is slightly confused is unclear what patient's baseline is. Patient states she feels fine. She has no complaints. The ROS documented in this emergency department record has been reviewed and confirmed by me. Those systems with pertinent positive or negative responses have been documented in the HPI. All other systems are other negative and/or noncontributory. PHYSICAL EXAM: General Impression: Alert and oriented x3, not in acute distress HEENT: Normocephalic atraumatic, extra-ocular movements intact, pupils equal and reactive to light bilaterally, mucous membranes moist. Cardiovascular: Heart regular rate and rhythm Chest: Able to complete full sentences, no retractions, no tachypnea Abdomen: abdomen soft, non-tender, non-distended, no organomegaly Musculoskeletal: Pulses present and equal in all extremities, no peripheral edema Motor: no focal deficits noted Neurological: CN II-XII grossly intact, no focal motor or sensory deficits noted Skin: Intact with no visualized rashes Psych: Tangential speech ED course: 74-year-old female brought to the emergency department for lethargy, generalized weakness. Vital signs upon arrival shows heart rate of 105, 92% oxygen on 2 L nasal cannula. Chart review was performed showing that patient was recently admitted February 2020 for COPD exacerbation and pneumonia. She has a history of schizophrenia. Patient was previously seen by pulmonology in July 2016 according to electronic medical records. Laboratory evaluation obtained. Mild leukocytosis of 10.7 likely secondary to stress. Coag panel is unremarkable. Venous blood gas shows mild acidosis with a pH of 7.3 with pCO2 of 70 and bicarb of 38. This likely reflects some mild respiratory acidosis with renal compensation. Metabolic panel is unremarkable. Urinalysis is negative. Soma cause negative carotid versus negative. Chest x- ray shows mild subsegmental atelectasis on the left side. Patient is breathing comfortably at bedside. Patient's hypercarbia is likely contributing to her encephalopathic symptoms. Patient be admitted to observation. Patient be admitted to Dr. Dior with consultation to pulmonology. - Related Data Home Medications Medication Instructions Recorded Confirmed Escitalopram [Lexapro] 20 mg PO DAILY@0800 08/07/15 05/25/20 Apixaban [Eliquis] 5 mg PO BID@0800,199903/11/20 05/25/20 Furosemide [Lasix] 40 mg PO DAILY@0800 03/11/20 05/25/20 Guaifenesin/Dextromethorphan 10 ml PO QID PRN 03/11/20 05/25/20 [Robitussin Cough-Chest Dm Liq] Hydrocortisone Cream 1 applic TOPICAL BID@0800,199903/11/20 05/25/20 [Hydrocortisone 2.5% Cream] Loperamide [Imodium] 2 mg PO QID PRN 03/11/20 05/25/20 Metoprolol Tartrate [Lopressor] 25 mg PO BID@0800,1600 03/11/20 05/25/20 Mirabegron [Myrbetriq] 25 mg PO DAILY@0800 03/11/20 05/25/20 Nystatin/Triamcin 1 applicate TOPICAL BID PRN 03/11/20 05/25/20 [Nystatin-Triamcinolone Cream] Atorvastatin [Lipitor] 40 mg PO HS@199905/25/20 05/25/20 Cholecalciferol [Vitamin D3 (25 50 mcg PO DAILY@0800 05/25/20 05/25/20 Mcg = 1000 Iu)] Ipratropium-Albuterol Nebulize 3 ml INHALATION RT-QID 05/25/20 05/25/20 [Duoneb 0.5 mg-3 mg/3 ml Soln] Potassium Chloride ER [K-Dur 10] 10 meq PO DAILY@0800 05/25/20 05/25/20 Simvastatin 80 mg PO HS@199905/25/20 05/25/20 Allergies Allergy/AdvReac Type Severity Reaction Status Date / Time No Known Allergies Allergy Verified 05/25/20 17:58 Review of Systems ROS Statement: Those systems with pertinent positive or pertinent negative responses have been documented in the HPI. ROS Other: All systems not noted in ROS Statement are negative. Past Medical History Past Medical History: COPD, Hyperlipidemia Additional Past Medical History / Comment(s): Pt recently admitted 08/07/15 to [facility] with hypokalemia, hypomagnesemia, metabolic encephalopathy. Other HX: anemia, hypoalbuminemia, protein calorie malnutrition, past electrolyte disturbances, 2012 abdominal wall cellulitis. History of Any Multi-Drug Resistant Organisms: None Reported Past Surgical History: Tubal Ligation Past Anesthesia/Blood Transfusion Reactions: No Reported Reaction Past Psychological History: Bipolar, Depression, Schizophrenia Smoking Status: Current every day smoker Past Alcohol Use History: Rare Past Drug Use History: None Reported - Past Family History Father Family Medical History: No Reported History Additional Family Medical History / Comment(s): Pt remembers her father as being healthy. She states he lived to be quite old but does not recall his age at the time of his . Mother Additional Family Medical History / Comment(s): Pt recalls her mother was obese. General Exam Limitations: no limitations Course Vital Signs 05/25/20 05/25/20 05/25/20 17:39 18:32 19:00 Temperature 98.3 F Pulse Rate 105 H 102 H 93 Respiratory 20 22 20 Rate Blood Pressure 121/96 116/76 102/69 O2 Sat by Pulse 92 L 96 97 Oximetry Medical Decision Making - Lab Data Result diagrams: 05/25/20 18:00 05/25/20 18:00 Lab Results 05/25/20 05/25/20 05/25/20 Range/Units 18:00 18:00 18:00 WBC 10.7 H (3.8-10.6) k/uL RBC 5.32 (3.80-5.40) m/uL Hgb 16.6 H (11.4-16.0) gm/dL Hct 51.8 H (34.0-46.0) % MCV 97.5 (80.0-100.0) fL MCH 31.2 (25.0-35.0) pg MCHC 32.0 (31.0-37.0) g/dL RDW 14.4 (11.5-15.5) % Plt Count 163 (150-450) k/uL MPV 8.8 Neutrophils % 81 % Lymphocytes % 7 % Monocytes % 8 % Eosinophils % 1 % Basophils % 1 % Neutrophils # 8.7 H (1.3-7.7) k/uL Lymphocytes # 0.8 L (1.0-4.8) k/uL Monocytes # 0.9 (0-1.0) k/uL Eosinophils # 0.1 (0-0.7) k/uL Basophils # 0.1 (0-0.2) k/uL Hypochromasia Moderate PT 12.8 H (9.0-12.0) sec INR 1.2 H (<1.2) APTT 22.8 (22.0-30.0) sec VBG pH (7.31-7.41) VBG pCO2 (37-51) mmHg VBG HCO3 (24-28) mmol/L Sodium (137-145) mmol/L Potassium (3.5-5.1) mmol/L Chloride (98-107) mmol/L Carbon Dioxide (22-30) mmol/L Anion Gap mmol/L BUN (7-17) mg/dL Creatinine (0.52-1.04) mg/dL Est GFR (CKD-EPI)AfAm (>60 ml/min/1.73 sqM) Est GFR (CKD-EPI)NonAf (>60 ml/min/1.73 sqM) Glucose (74-99) mg/dL Calcium (8.4-10.2) mg/dL Magnesium (1.6-2.3) mg/dL Total Bilirubin (0.2-1.3) mg/dL AST (14-36) U/L ALT (4-34) U/L Alkaline Phosphatase (38-126) U/L Ammonia (<30) umol/L Troponin I (0.000-0.034) ng/mL NT-Pro-B Natriuret Pep pg/mL Total Protein (6.3-8.2) g/dL Albumin (3.5-5.0) g/dL TSH (0.465-4.680) mIU/L Urine Color Yellow Urine Appearance Clear (Clear) Urine pH 5.5 (5.0-8.0) Ur Specific Perry 1.024 (1.001-1.035) Urine Protein Trace H (Negative) Urine Glucose (UA) Negative (Negative) Urine Ketones Negative (Negative) Urine Blood Negative (Negative) Urine Nitrite Negative (Negative) Urine Bilirubin Negative (Negative) Urine Urobilinogen 2.0 (<2.0) mg/dL Ur Leukocyte Esterase Negative (Negative) Serum Alcohol mg/dL Coronavirus (PCR) (Not Detectd) 05/25/20 05/25/20 05/25/20 Range/Units 18:00 18:00 18:00 WBC (3.8-10.6) k/uL RBC (3.80-5.40) m/uL Hgb (11.4-16.0) gm/dL Hct (34.0-46.0) % MCV (80.0-100.0) fL MCH (25.0-35.0) pg MCHC (31.0-37.0) g/dL RDW (11.5-15.5) % Plt Count (150-450) k/uL MPV Neutrophils % % Lymphocytes % % Monocytes % % Eosinophils % % Basophils % % Neutrophils # (1.3-7.7) k/uL Lymphocytes # (1.0-4.8) k/uL Monocytes # (0-1.0) k/uL Eosinophils # (0-0.7) k/uL Basophils # (0-0.2) k/uL Hypochromasia PT (9.0-12.0) sec INR (<1.2) APTT (22.0-30.0) sec VBG pH (7.31-7.41) VBG pCO2 (37-51) mmHg VBG HCO3 (24-28) mmol/L Sodium 137 (137-145) mmol/L Potassium 5.1 (3.5-5.1) mmol/L Chloride 97 L (98-107) mmol/L Carbon Dioxide 39 H (22-30) mmol/L Anion Gap 1 mmol/L BUN 19 H (7-17) mg/dL Creatinine 0.69 (0.52-1.04) mg/dL Est GFR (CKD-EPI)AfAm >90 (>60 ml/min/1.73 sqM) Est GFR (CKD-EPI)NonAf 87 (>60 ml/min/1.73 sqM) Glucose 173 H (74-99) mg/dL Calcium 8.5 (8.4-10.2) mg/dL Magnesium 2.1 (1.6-2.3) mg/dL Total Bilirubin 0.8 (0.2-1.3) mg/dL AST 34 (14-36) U/L ALT 32 (4-34) U/L Alkaline Phosphatase 77 (38-126) U/L Ammonia (<30) umol/L Troponin I <0.012 (0.000-0.034) ng/mL NT-Pro-B Natriuret Pep 1700 pg/mL Total Protein 5.7 L (6.3-8.2) g/dL Albumin 3.1 L (3.5-5.0) g/dL TSH 1.960 (0.465-4.680) mIU/L Urine Color Urine Appearance (Clear) Urine pH (5.0-8.0) Ur Specific Perry (1.001-1.035) Urine Protein (Negative) Urine Glucose (UA) (Negative) Urine Ketones (Negative) Urine Blood (Negative) Urine Nitrite (Negative) Urine Bilirubin (Negative) Urine Urobilinogen (<2.0) mg/dL Ur Leukocyte Esterase (Negative) Serum Alcohol <10 mg/dL Coronavirus (PCR) (Not Detectd) 05/25/20 05/25/20 05/25/20 Range/Units 18:00 18:00 18:32 WBC (3.8-10.6) k/uL RBC (3.80-5.40) m/uL Hgb (11.4-16.0) gm/dL Hct (34.0-46.0) % MCV (80.0-100.0) fL MCH (25.0-35.0) pg MCHC (31.0-37.0) g/dL RDW (11.5-15.5) % Plt Count (150-450) k/uL MPV Neutrophils % % Lymphocytes % % Monocytes % % Eosinophils % % Basophils % % Neutrophils # (1.3-7.7) k/uL Lymphocytes # (1.0-4.8) k/uL Monocytes # (0-1.0) k/uL Eosinophils # (0-0.7) k/uL Basophils # (0-0.2) k/uL Hypochromasia PT (9.0-12.0) sec INR (<1.2) APTT (22.0-30.0) sec VBG pH 7.31 (7.31-7.41) VBG pCO2 78 H* (37-51) mmHg VBG HCO3 38 H (24-28) mmol/L Sodium (137-145) mmol/L Potassium (3.5-5.1) mmol/L Chloride (98-107) mmol/L Carbon Dioxide (22-30) mmol/L Anion Gap mmol/L BUN (7-17) mg/dL Creatinine (0.52-1.04) mg/dL Est GFR (CKD-EPI)AfAm (>60 ml/min/1.73 sqM) Est GFR (CKD-EPI)NonAf (>60 ml/min/1.73 sqM) Glucose (74-99) mg/dL Calcium (8.4-10.2) mg/dL Magnesium (1.6-2.3) mg/dL Total Bilirubin (0.2-1.3) mg/dL AST (14-36) U/L ALT (4-34) U/L Alkaline Phosphatase (38-126) U/L Ammonia <9 (<30) umol/L Troponin I (0.000-0.034) ng/mL NT-Pro-B Natriuret Pep pg/mL Total Protein (6.3-8.2) g/dL Albumin (3.5-5.0) g/dL TSH (0.465-4.680) mIU/L Urine Color Urine Appearance (Clear) Urine pH (5.0-8.0) Ur Specific Perry (1.001-1.035) Urine Protein (Negative) Urine Glucose (UA) (Negative) Urine Ketones (Negative) Urine Blood (Negative) Urine Nitrite (Negative) Urine Bilirubin (Negative) Urine Urobilinogen (<2.0) mg/dL Ur Leukocyte Esterase (Negative) Serum Alcohol mg/dL Coronavirus (PCR) Not Detected (Not Detectd) Disposition Clinical Impression: Acute respiratory failure with hypoxia and hypercarbia Disposition: ADMITTED IP TO THIS HOSP Condition: Fair Referrals: Chidi Almaraz MD [Primary Care Provider] - 1-2 days Decision Time: 20:26
[2020-05-25 18:46] LABS: Basophils # (A) 0.1 k/uL (0-0.2); Basophils % (A) 1 %; Eosinophils # (A) 0.1 k/uL (0-0.7); Eosinophils % (A) 1 %; HCT 51.8 % (34.0-46.0); HGB 16.6 gm/dL (11.4-16.0); Hypochromasia Moderate; Lymphocytes # (A) 0.8 k/uL (1.0-4.8); Lymphocytes % (A) 7 %; MCH 31.2 pg (25.0-35.0); MCV 97.5 fL (80.0-100.0); Mean Platelet Volume 8.8; Monocytes # (A) 0.9 k/uL (0-1.0); Monocytes % (A) 8 %; Neutrophils # (A) 8.7 k/uL (1.3-7.7); Neutrophils % (A) 81 %; Platelet Count 163 k/uL (150-450); RBC 5.32 m/uL (3.80-5.40); RDW 14.4 % (11.5-15.5); WBC 10.7 k/uL (3.8-10.6)
--- NOTE | 2020-05-25 18:47 | XR ---
EXAMINATION TYPE: XR chest 1V portable DATE OF EXAM: 05/25/2020 COMPARISON: 03/11/2020 HISTORY: Short of breath TECHNIQUE: Single view FINDINGS: Heart is enlarged. There are chest leads. There is some mild linear density left lower lobe . There is coarsening of interstitial markings. There is no definite heart failure. IMPRESSION: Cardiomegaly and mild fibrosis. No obvious heart failure. There is some mild subsegmental atelectasis on the left side that appears new compared to old exam.
[2020-05-25 18:48] LABS: Appearance,Urine Clear (Clear); Bilirubin,Urine Negative (Negative); Blood,Urine Negative (Negative); Color,Urine Yellow; Glucose,Urine (UA) Negative (Negative); Ketones,Urine Negative (Negative); Leukocyte Esterase,Urine Negative (Negative); Nitrite,Urine Negative (Negative); PH, Urine 5.5 (5.0-8.0); Protein,Urine Trace (Negative); Specific Gravity,Urine 1.024 (1.001-1.035)
[2020-05-25 18:49] LABS: VBG PH 7.31 (7.31-7.41)
[2020-05-25 18:54] LABS: INR 1.2 (<1.2); Prothrombin Time 12.8 sec (9.0-12.0)
[2020-05-25 18:59] LABS: ALT 32 U/L (4-34); AST 34 U/L (14-36); African American GFR (CKD) >90 (>60 ml/min/1.73 sqM); Albumin 3.1 g/dL (3.5-5.0); Alcohol <10 mg/dL; Alkaline Phosphatase 77 U/L (38-126); Anion Gap 1 mmol/L; Blood Urea Nitrogen 19 mg/dL (7-17); Calcium 8.5 mg/dL (8.4-10.2); Carbon Dioxide 39 mmol/L (22-30); Chloride 97 mmol/L (98-107); Glucose 173 mg/dL (74-99); Magnesium 2.1 mg/dL (1.6-2.3); Non-African American GFR(CKD) 87 (>60 ml/min/1.73 sqM); Potassium 5.1 mmol/L (3.5-5.1); Sodium 137 mmol/L (137-145); Total Bilirubin 0.8 mg/dL (0.2-1.3); Total Protein 5.7 g/dL (6.3-8.2)
[2020-05-25 19:03] LABS: Partial Thromboplastin Time 22.8 sec (22.0-30.0)
[2020-05-25] MEDS ORDERED: NALOXONE 0.4 MG/ML 1 ML VIAL IV PRN (20:21)
[2020-05-25] MEDS: SODIUM CHLORIDE 0.9% 1,000 ML IV SCH (22:01)
[2020-05-26] MEDS: IPRATROPIUM-ALBUTEROL 3 ML NEB INHALATION SCH ×7 (07:08→23:28)
[2020-05-26] MEDS: APIXABAN 5 MG TAB PO SCH ×2 (07:53→20:41)
[2020-05-26] MEDS: METOPROLOL TARTRATE 25 MG TAB PO SCH ×2 (07:53→17:04)
[2020-05-26] MEDS ORDERED: LOPERAMIDE 2 MG CAP PO PRN (12:28)
[2020-05-26] MEDS ORDERED: NYSTAT-TRIAMCIN 100,000-0.1 UNIT/GM-% CREAM 30 GM TUBE TOPICAL PRN (12:28)
[2020-05-26] MEDS ORDERED: NYSTATIN 100,000UNIT/GM CREAM 30 GM TUBE TOPICAL PRN (12:54)
[2020-05-26] MEDS ORDERED: TRIAMCINOLONE 0.1% CREAM 80 GM TUBE TOPICAL PRN (12:54)
[2020-05-26] MEDS: FUROSEMIDE 10 MG/ML 4 ML VIAL IV SCH ×2 (13:23→20:41)
[2020-05-26] MEDS: guaiFENesin 600 MG TABLET.ER PO SCH ×3 (13:23→20:41)
--- NOTE | 2020-05-26 13:51 | P.CNPUL ---
History of Present Illness Consult date: 05/26/20 Requesting physician: Fredrick Jacob Chief complaint: Weakness, hypoxia, lethargy History of present illness: This is a 74-year-old white female patient with the resident [facility], a poor historian, his history of COPD on home oxygen which she is noncompliant with, morbid obesity, hyperlipidemia, chronic anemia, abdominal wall cellulitis, bipolar, depression, schizophrenia, chronic and ongoing smoker who was brought into the hospital on 05/25/2020 for evaluation of increased lethargy, generalized weakness, and hypoxia. Venous blood gas in the emergency department showed acute on chronic hypercapnic respiratory failure with pH 7.3, pCO2 of 70 and bicarbonate of 38. Chest x-ray showed cardiomegaly and mild fibrosis, no obvious heart failure, mild subsegmental atelectasis on the left. COVID 19 PCR was negative, lab data revealed with that cell, 10.7, hemoglobin 16.6, hematocrit is 51.8, neutrophils 70.7, lymphocytes of 0.8, INR 1.2, sodium is 137, potassium is 5.1, chloride is 97, CO2 is 39, BUN of 19 and creatinine 0.69, proBNP was 1700, troponin was less than 0.012, ammonia level was less than 9, LFTs were within normal limits, urinalysis showed trace protein but negative for any sign of infection, serum alcohol was less than 10. Hemodynamically she has been stable, she is currently on 10 L of oxygen and the pulse ox of 94%, and her FiO2 requirements have increased since admission. Patient was started on breathing treatments, she was given a dose of IV dexamethasone in the emergency department, she is currently awake and alert, she denies any respiratory distress, she states she has occasional cough, no dyspnea, she is breathing comfortably, no complaints of chest pain. She states she just wants to go home to her people. Patient is a poor historian, she is able to answer simple questions, during the interview she is talking to someone in the room who was not there. She has a generalized rash on her bilateral lower extremities, abdomen, lower back. She appears to be generally fluid overloaded, lower extremities are swollen. She states the rash is not known, she denies pruritus, she states the rash is generally worse under the diaper area with the possibi lity of contact dermatitis. She states she usually puts cream on her skin. Lung sounds are clear, no rhonchi no wheezing. Review of Systems All systems: negative Constitutional: Denies chills, Denies fever Eyes: denies blurred vision, denies pain Ears, nose, mouth and throat: Denies headache, Denies sore throat Cardiovascular: Denies chest pain, Denies shortness of breath Respiratory: Reports dyspnea, Reports home oxygen, Reports respiratory infections, Denies cough Gastrointestinal: Denies abdominal pain, Denies diarrhea, Denies nausea, Denies vomiting Genitourinary: Denies dysuria, Denies hematuria Musculoskeletal: Denies myalgias Integumentary: Reports rash, Denies pruritus Neurological: Denies numbness, Denies weakness Psychiatric: Denies anxiety, Denies depression Endocrine: Denies fatigue, Denies weight change Past Medical History Past Medical History: COPD, Hyperlipidemia Additional Past Medical History / Comment(s): Pt recently admitted 08/07/15 to [facility] with hypokalemia, hypomagnesemia, metabolic encephalopathy. Other HX: anemia, hypoalbuminemia, protein calorie malnutrition, past electrolyte disturbances, 2012 abdominal wall cellulitis. History of Any Multi-Drug Resistant Organisms: None Reported Past Surgical History: Tubal Ligation Past Anesthesia/Blood Transfusion Reactions: No Reported Reaction Past Psychological History: Bipolar, Depression, Schizophrenia Additional Psychological History / Comment(s): Patient states she resides at [facility] Smoking Status: Current every day smoker Past Alcohol Use History: Rare Additional Past Alcohol Use History / Comment(s): Pt started smoking in 1971 and is a ppd smoker. Past Drug Use History: None Reported - Past Family History Father Family Medical History: No Reported History Additional Family Medical History / Comment(s): Pt remembers her father as being healthy. She states he lived to be quite old but does not recall his age at the time of his . Mother Additional Family Medical History / Comment(s): Pt recalls her mother was obese. Medications and Allergies Home Medications Medication Instructions Recorded Confirmed Type Escitalopram [Lexapro] 20 mg PO DAILY@0800 08/07/15 05/25/20 History Apixaban [Eliquis] 5 mg PO BID@0800,199903/11/20 05/25/20 History Furosemide [Lasix] 40 mg PO DAILY@0800 03/11/20 05/25/20 History Guaifenesin/Dextromethorphan 10 ml PO QID PRN 03/11/20 05/25/20 History [Robitussin Cough-Chest Dm Liq] Hydrocortisone Cream 1 applic TOPICAL BID@799,199903/11/20 05/25/20 History [Hydrocortisone 2.5% Cream] Loperamide [Imodium] 2 mg PO QID PRN 03/11/20 05/25/20 History Metoprolol Tartrate [Lopressor] 25 mg PO BID@0800,159903/11/20 05/25/20 History Mirabegron [Myrbetriq] 25 mg PO DAILY@0800 03/11/20 05/25/20 History Nystatin/Triamcin 1 applicate TOPICAL BID PRN 03/11/20 05/25/20 History [Nystatin-Triamcinolone Cream] Atorvastatin [Lipitor] 40 mg PO HS@199905/25/20 05/25/20 History Cholecalciferol [Vitamin D3 (25 50 mcg PO DAILY@79905/25/20 05/25/20 History Mcg = 1000 Iu)] Ipratropium-Albuterol Nebulize 3 ml INHALATION RT-QID 05/25/20 05/25/20 History [Duoneb 0.5 mg-3 mg/3 ml Soln] Potassium Chloride ER [K-Dur 10] 10 meq PO DAILY@0805/25/20 05/25/20 History Simvastatin 80 mg PO HS@199905/25/20 05/25/20 History Allergies Allergy/AdvReac Type Severity Reaction Status Date / Time No Known Allergies Allergy Verified 05/25/20 17:58 Physical Exam Vitals: Vital Signs Temp Pulse Pulse Resp BP BP Pulse Ox 05/26/20 11:13 88 05/26/20 11:02 88 05/26/20 07:57 108 H 22 05/26/20 07:51 97.5 F L 95 19 103/67 94 L 05/26/20 07:20 88 05/26/20 07:08 88 05/26/20 00:29 97.8 F 84 20 112/78 92 L 05/25/20 19:00 93 20 102/69 97 05/25/20 18:32 102 H 22 116/76 96 05/25/20 17:39 98.3 F 105 H 20 121/96 92 L Intake and Output 05/25/20 05/26/20 05/26/20 22:59 06:59 14:59 Other: Voiding Method Bedside Commode Diaper # Voids 2 2 Weight 113.398 kg 113.398 kg GENERAL EXAM: Alert, pleasant, morbidly obese 74-year-old white female, currently on 10 L of oxygen a pulse ox of 94%, awake and alert, sitting up in bed, eating lunch, patient is a poor historian, she is able to answer simple questions, however she is having auditory hallucinations, she is speaking to someone in the room was not there. HEAD: Normocephalic/atraumatic. EYES: Normal reaction of pupils, equal size. Conjunctiva pink, sclera white. NOSE: Clear with pink turbinates. THROAT: No erythema or exudates. NECK: No masses, no JVD, no thyroid enlargement, no adenopathy. CHEST: No chest wall deformity. Symmetrical expansion. LUNGS: Equal air entry with no crackles, wheeze, rhonchi or dullness. CVS: Regular rate and rhythm, normal S1 and S2, no gallops, no murmurs, no rubs ABDOMEN: Soft, nontender. No hepatosplenomegaly, normal bowel sounds, no guarding or rigidity. Abdomen, trunk, back, perineum, hips, lower extremities are positive for pink rash, which the patient denies being itchy. EXTREMITIES: No clubbing, 1+ nonpitting lower extremity edema no cyanosis, 2+ pulses and upper and lower extremities. MUSCULOSKELETAL: Muscle strength and tone normal. SPINE: No scoliosis or deformity SKIN: No rashes CENTRAL NERVOUS SYSTEM: Alert and oriented -1. No focal deficits, tone is normal in all 4 extremities. Results - Laboratory Findings CBC and BMP: 05/25/20 18:00 05/25/20 18:00 PT/INR, D-dimer PT 12.8 sec (9.0-12.0) H 05/25/20 18:00 INR 1.2 (<1.2) H 05/25/20 18:00 Abnormal lab findings: Abnormal Labs 05/25/20 05/25/20 05/25/20 18:00 18:00 18:00 WBC 10.7 H Hgb 16.6 H Hct 51.8 H Neutrophils # 8.7 H Lymphocytes # 0.8 L PT 12.8 H INR 1.2 H VBG pCO2 VBG HCO3 Chloride Carbon Dioxide BUN Glucose Total Protein Albumin Urine Protein Trace H 05/25/20 05/25/20 18:00 18:00 WBC Hgb Hct Neutrophils # Lymphocytes # PT INR VBG pCO2 78 H* VBG HCO3 38 H Chloride 97 L Carbon Dioxide 39 H BUN 19 H Glucose 173 H Total Protein 5.7 L Albumin 3.1 L Urine Protein - Diagnostic Findings Chest x-ray: report reviewed, image reviewed Assessment and Plan Plan: Assessment: #1. Acute on chronic hypoxic and hypercapnic respiratory failure related to fluid overload, and acute COPD exacerbation. Chest x-ray showed mild subsegmental atelectasis, COVID 19 PCR was negative #2. History of COPD, on home oxygen, patient is noncompliant with home oxygen #3. Generalized pink rash on the trunk, lower extremities, back and patient states it is chronic, denies pruritus #4. Chronic and ongoing history of smoking #5. Bipolar disorder #6. Schizophrenia #7. Depression #8. Recent hospitalization in February 2020 for pneumonia #9. Chronic atrial fibrillation on Eliquis Plan: Patient is much more awake, she is answering simple questions, she denies any difficulty breathing, wean FiO2, her venous blood gas reveals chronic hypercapnic respiratory failure, may benefit from BiPAP support should her mentation worsen again, and acute on chronic hypercapnic respiratory failure is suspected. We will add diuretics, nebulized bronchodilators, follow up labs tomorrow I performed a history & physical examination of the patient and discussed their management with my nurse practitioner, Hermelinda Blake. I reviewed the nurse practitioner's note and agree with the documented findings and plan of care. Lung sounds are positive for diminished breath sounds. The findings and the impression was discussed with the patient. I attest to the documentation by the nurse practitioner. Time with Patient: Greater than 30
[2020-05-26] MEDS: BUDESONIDE 1 MG/2 ML NEBU INHALATION SCH ×2 (15:06→20:49)
[2020-05-26] MEDS: FORMOTEROL FUMARATE 20 MCG/2 ML NEBU INHALATION SCH ×2 (15:07→20:49)
[2020-05-26] MEDS: NON FORMULARY DRUG (Mirabegron [Myrbetriq] 25 MG Tab.Er.24h) PO SCH (15:43)
[2020-05-26] MEDS ORDERED: ATORVASTATIN 40 MG TAB PO SCH (20:00)
[2020-05-26] MEDS: TRIAMCINOLONE 0.1% CREAM 80 GM TUBE TOPICAL SCH (20:42)
[2020-05-26] MEDS: SODIUM CHLORIDE 0.9% 1,000 ML IV SCH (20:43)
--- NOTE | 2020-05-26 23:43 | P.HPIM ---
History of Present Illness H&P Date: 05/26/20 Chief Complaint: Short of breath History of presenting complaint: This is a 74-year-old patient who is a resident of [facility]. Patient's brother Bharath is the legal guardian. Chronic stable medical conditions include schizophrenia, hyperlipidemia, persistent atrial fibrillation, chronic urinary incontinence. [facility] for having last few days of increasing lethargy, excessive sleeping hypoxia. Patient has prescribed oxygen have been has been noncompliance. Patient was somewhat confused in the ER. This morning patient also lethargic. Arousable but easily dozes off. Any questions she says she is fine. But also short of breath. Not in any distress. But short of breath. Review of systems: Difficult to obtain as patient other lethargic Past medical history to include: COPD, hyperlipidemia bipolar, schizophrenia, home oxygen, urinary incontinence, atrial fibrillation Social history: Smoking for 48 years. One pack a day. No alcohol. Resides at [facility]. Patient's brother Bharath is the legal guardian. Physical examination: VITAL SIGNS: 98.3, 105, 20, 121/96, 92% on 2 L-upon presentation GENERAL: BMI 42.9, reclining in bed, lethargic just about arousable EYES: Pupils equal. Conjunctiva normal. HEENT: External appearance of nose and ears normal, oral cavity dry NECK: JVD unable to assess; masses not palpable. HEART: First and second heart sounds are normal; no edema. LUNGS:[ Respiratory rate increased, decreased breath sounds. Wheezing ABDOMEN: Soft, nontender, liver spleen not palpable, no masses palpable. PSYCH: Lethargic just about arousable easily dozes off unable to assess NEUROLOGICAL: Cranial nerves grossly intact; no facial asymmetry, moves all 4 limbs LYMPHATICS: No lymph nodes palpable in the axilla and neck INVESTIGATIONS, reviewed in the clinical context: White count 10.7 hemoglobin 16.8 potassium 5.1 creatinine 0.9 venous blood gas: PCO2 78 bicarb of 38 Coronavirus [PCR]-not detected UA-showing trace protein Chest x-ray film personally reviewed by me-portable: Some basilar infiltrates Assessment: -Suspect bilateral basal Pneumonia, suspect gram-negative organism POA -Acute hypoxic and hypercarbic respiratory failure -Acute COPD exacerbation in a smoker -Chronic nicotine dependence patient cigarette smoker -Schizophrenia -Hyperlipidemia -Persistent atrial fibrillation on eliquis -Chronic urinary incontinence -Acute hypoxic encephalopathy with delirium, POA Plan: Home medications resumed. Patient is placed on frequent DuoNeb. We'll add IV ceftriaxone. Solu-Medrol. Pulmonary consulted. Follow closely. Past Medical History Past Medical History: COPD, Hyperlipidemia Additional Past Medical History / Comment(s): Pt recently admitted 08/07/15 to [facility] with hypokalemia, hypomagnesemia, metabolic encephalopathy. Other HX: anemia, hypoalbuminemia, protein calorie malnutrition, past electrolyte disturbances, 2012 abdominal wall cellulitis. History of Any Multi-Drug Resistant Organisms: None Reported Past Surgical History: Tubal Ligation Past Anesthesia/Blood Transfusion Reactions: No Reported Reaction Past Psychological History: Bipolar, Depression, Schizophrenia Additional Psychological History / Comment(s): Patient states she resides at [facility] Smoking Status: Current every day smoker Past Alcohol Use History: Rare Additional Past Alcohol Use History / Comment(s): Pt started smoking in 1971 and is a ppd smoker. Past Drug Use History: None Reported - Past Family History Father Family Medical History: No Reported History Additional Family Medical History / Comment(s): Pt remembers her father as being healthy. She states he lived to be quite old but does not recall his age at the time of his . Mother Additional Family Medical History / Comment(s): Pt recalls her mother was obese. Medications and Allergies Home Medications Medication Instructions Recorded Confirmed Type Escitalopram [Lexapro] 20 mg PO DAILY@0800 08/07/15 05/25/20 History Apixaban [Eliquis] 5 mg PO BID@0800,199903/11/20 05/25/20 History Furosemide [Lasix] 40 mg PO DAILY@0800 03/11/20 05/25/20 History Guaifenesin/Dextromethorphan 10 ml PO QID PRN 03/11/20 05/25/20 History [Robitussin Cough-Chest Dm Liq] Hydrocortisone Cream 1 applic TOPICAL BID@0800,199903/11/20 05/25/20 History [Hydrocortisone 2.5% Cream] Loperamide [Imodium] 2 mg PO QID PRN 03/11/20 05/25/20 History Metoprolol Tartrate [Lopressor] 25 mg PO BID@0800,159903/11/20 05/25/20 History Mirabegron [Myrbetriq] 25 mg PO DAILY@0800 03/11/20 05/25/20 History Nystatin/Triamcin 1 applicate TOPICAL BID PRN 03/11/20 05/25/20 History [Nystatin-Triamcinolone Cream] Atorvastatin [Lipitor] 40 mg PO HS@199905/25/20 05/25/20 History Cholecalciferol [Vitamin D3 (25 50 mcg PO DAILY@0805/25/20 05/25/20 History Mcg = 1000 Iu)] Ipratropium-Albuterol Nebulize 3 ml INHALATION RT-QID 05/25/20 05/25/20 History [Duoneb 0.5 mg-3 mg/3 ml Soln] Potassium Chloride ER [K-Dur 10] 10 meq PO DAILY@0805/25/20 05/25/20 History Simvastatin 80 mg PO HS@199905/25/20 05/25/20 History Allergies Allergy/AdvReac Type Severity Reaction Status Date / Time No Known Allergies Allergy Verified 05/25/20 17:58 Physical Exam Vitals: Vital Signs Temp Pulse Pulse Resp BP BP Pulse Ox 05/26/20 11:13 88 05/26/20 11:02 88 05/26/20 07:57 108 H 22 05/26/20 07:51 97.5 F L 95 19 103/67 94 L 05/26/20 07:20 88 05/26/20 07:08 88 05/26/20 00:29 97.8 F 84 20 112/78 92 L 05/25/20 19:00 93 20 102/69 97 05/25/20 18:32 102 H 22 116/76 96 05/25/20 17:39 98.3 F 105 H 20 121/96 92 L Intake and Output 05/25/20 05/26/20 05/26/20 22:59 06:59 14:59 Other: Voiding Method Bedside Commode Diaper # Voids 2 2 Weight 113.398 kg 113.398 kg Results CBC & Chem 7: 05/25/20 18:00 05/25/20 18:00 Labs: Abnormal Lab Results - Last 24 Hours (Table) 05/25/20 05/25/20 05/25/20 Range/Units 18:00 18:00 18:00 WBC 10.7 H (3.8-10.6) k/uL Hgb 16.6 H (11.4-16.0) gm/dL Hct 51.8 H (34.0-46.0) % Neutrophils # 8.7 H (1.3-7.7) k/uL Lymphocytes # 0.8 L (1.0-4.8) k/uL PT 12.8 H (9.0-12.0) sec INR 1.2 H (<1.2) VBG pCO2 (37-51) mmHg VBG HCO3 (24-28) mmol/L Chloride (98-107) mmol/L Carbon Dioxide (22-30) mmol/L BUN (7-17) mg/dL Glucose (74-99) mg/dL Total Protein (6.3-8.2) g/dL Albumin (3.5-5.0) g/dL Urine Protein Trace H (Negative) 05/25/20 05/25/20 Range/Units 18:00 18:00 WBC (3.8-10.6) k/uL Hgb (11.4-16.0) gm/dL Hct (34.0-46.0) % Neutrophils # (1.3-7.7) k/uL Lymphocytes # (1.0-4.8) k/uL PT (9.0-12.0) sec INR (<1.2) VBG pCO2 78 H* (37-51) mmHg VBG HCO3 38 H (24-28) mmol/L Chloride 97 L (98-107) mmol/L Carbon Dioxide 39 H (22-30) mmol/L BUN 19 H (7-17) mg/dL Glucose 173 H (74-99) mg/dL Total Protein 5.7 L (6.3-8.2) g/dL Albumin 3.1 L (3.5-5.0) g/dL Urine Protein (Negative) Thrombosis Risk Factor Assmnt - Choose All That Apply Any of the Below Risk Factors Present?: Yes Each Factor Represents 1 point: Obesity (BMI >25) Other Risk Factors: Yes Each Risk Factor Represents 2 Points: Age 61-74 years Other congenital or acquired thrombophilia - If yes, enter type in comment: No Thrombosis Risk Factor Assessment Total Risk Factor Score: 3 Thrombosis Risk Factor Assessment Level: Moderate Risk
[2020-05-27] MEDS: methylPREDNISolone SOD SUCCI 40 MG/ML 1 ML VIAL IV SCH ×2 (00:04→07:37)
[2020-05-27] MEDS: IPRATROPIUM-ALBUTEROL 3 ML NEB INHALATION SCH ×3 (03:18→11:01)
[2020-05-27] MEDS: FORMOTEROL FUMARATE 20 MCG/2 ML NEBU INHALATION SCH (07:36)
[2020-05-27] MEDS: BUDESONIDE 1 MG/2 ML NEBU INHALATION SCH (07:36)
[2020-05-27] MEDS: APIXABAN 5 MG TAB PO SCH (07:37)
[2020-05-27] MEDS: METOPROLOL TARTRATE 25 MG TAB PO SCH (07:37)
[2020-05-27] MEDS: NON FORMULARY DRUG (Mirabegron [Myrbetriq] 25 MG Tab.Er.24h) PO SCH (07:47)
[2020-05-27] MEDS: TRIAMCINOLONE 0.1% CREAM 80 GM TUBE TOPICAL SCH (07:49)
[2020-05-27] MEDS ORDERED: ESCITALOPRAM 20 MG TAB PO SCH (08:00)
[2020-05-27] MEDS ORDERED: CHOLECALCIFEROL 25 MCG (1000 IU) TABLET PO SCH (08:00)
[2020-05-27 08:02] VITALS: BP 116/78; TEMP 98.5
[2020-05-27] MEDS: FUROSEMIDE 10 MG/ML 4 ML VIAL IV SCH (08:33)
[2020-05-27] MEDS: guaiFENesin 600 MG TABLET.ER PO SCH (08:33)
--- NOTE | 2020-05-27 09:49 | XR ---
EXAMINATION TYPE: XR chest 1V portable DATE OF EXAM: 05/27/2020 COMPARISON: Chest x-ray 05/25/2020 HISTORY: Congestive heart failure TECHNIQUE: Single frontal view of the chest is obtained. FINDINGS: Cardiac mediastinal silhouette shows a stable appearance. Interstitium is increased. Centr al vascularity appears prominently. Technique is apical lordotic. No evident pneumothorax or pleural effusion. There are overlying leads. IMPRESSION: Correlate for pulmonary venous hypertension and interstitial edema. Marked cardiomegaly.
[2020-05-27 10:13] VITALS: RESP 19
[2020-05-27 11:19] VITALS: PULSE 106
--- NOTE | 2020-05-27 12:26 | P.PN ---
Subjective Progress Note Date: 05/27/20 Principal diagnosis: Weakness, hypoxia, lethargy This is a 74-year-old white female patient with the resident of an adult foster [facility], a poor historian, his history of COPD on home oxygen which she is noncompliant with, morbid obesity, hyperlipidemia, chronic anemia, abdominal wall cellulitis, bipolar, depression, schizophrenia, chronic and ongoing smoker who was brought into the hospital on 05/25/2020 for evaluation of increased lethargy, generalized weakness, and hypoxia. Venous blood gas in the emergency department showed acute on chronic hypercapnic respiratory failure with pH 7.3, pCO2 of 70 and bicarbonate of 38. Chest x-ray showed cardiomegaly and mild fibr osis, no obvious heart failure, mild subsegmental atelectasis on the left. COVID 19 PCR was negative, lab data revealed with that cell, 10.7, hemoglobin 16.6, hematocrit is 51.8, neutrophils 70.7, lymphocytes of 0.8, INR 1.2, sodium is 137, potassium is 5.1, chloride is 97, CO2 is 39, BUN of 19 and creatinine 0.69, proBNP was 1700, troponin was less than 0.012, ammonia level was less than 9, LFTs were within normal limits, urinalysis showed trace protein but negative for any sign of infection, serum alcohol was less than 10. Hemodynamically she has been stable, she is currently on 10 L of oxygen and the pulse ox of 94%, and her FiO2 requirements have increased since admission. Patient was started on breathing treatments, she was given a dose of IV dexamethasone in the emergency department, she is currently awake and alert, she denies any respiratory distress, she states she has occasional cough, no dyspnea, she is breathing comfortably, no complaints of chest pain. She states she just wants to go home to her people. Patient is a poor historian, she is able to answer simple questi ons, during the interview she is talking to someone in the room who was not there. She has a generalized rash on her bilateral lower extremities, abdomen, lower back. She appears to be generally fluid overloaded, lower extremities are swollen. She states the rash is not known, she denies pruritus, she states the rash is generally worse under the diaper area with the possibility of contact dermatitis. She states she usually puts cream on her skin. Lung sounds are clear, no rhonchi no wheezing. On 05/19/2020 patient seen in follow-up on medical floor, she is sitting up on the edge of the bed, currently on 4 L of oxygen with a pulse ox of 92%, she's been afebrile, vital signs have been stable, she is breathing comfortably, patient was placed on diuretics, generally she seems to be less swollen, her chest x-ray shows pulmonary venous hypertension and interstitial edema. Clinically patient is stable, no worsening dyspnea, no complaints of chest pain. He seems to be less anxious on today's exam, calm and cooperative, her rash on upper and lower extremities and trunk seems to be less reddened. Patient is requesting to go home today Objective - Vital Signs Vital signs: Vital Signs Temp 98.5 F 05/27/20 08:00 Pulse 106 H 05/27/20 11:18 Resp 19 05/27/20 08:00 BP 116/78 05/27/20 08:00 Pulse Ox 92 L 05/27/20 08:00 Intake & Output 05/26/20 05/27/20 05/27/20 18:59 06:59 18:59 Other: Voiding Method Bedside Commode Bedside Commode Bedside Commode Diaper Diaper Diaper Incontinent # Voids 3 2 - Exam GENERAL EXAM: Alert, pleasant, morbidly obese 74-year-old white female, currently on 4 L of oxygen a pulse ox of 92%, awake and alert, sitting up in bed, comfortable, sitting on edge of the bed, in no acute distress HEAD: Normocephalic/atraumatic. EYES: Normal reaction of pupils, equal size. Conjunctiva pink, sclera white. NOSE: Clear with pink turbinates. THROAT: No erythema or exudates. NECK: No masses, no JVD, no thyroid enlargement, no adenopathy. CHEST: No chest wall deformity. Symmetrical expansion. LUNGS: Equal air entry with no crackles, wheeze, rhonchi or dullness. CVS: Regular rate and rhythm, normal S1 and S2, no gallops, no murmurs, no rubs ABDOMEN: Soft, nontender. No hepatosplenomegaly, normal bowel sounds, no guarding or rigidity. Abdomen, trunk, back, perineum, hips, lower extremities are positive for pink rash, which the patient denies being itchy. EXTREMITIES: No clubbing, 1+ nonpitting lower extremity edema no cyanosis, 2+ pulses and upper and lower extremities. MUSCULOSKELETAL: Muscle strength and tone normal. SPINE: No scoliosis or deformity SKIN: No rashes CENTRAL NERVOUS SYSTEM: Alert and oriented -1. No focal deficits, tone is normal in all 4 extremities. - Labs CBC & Chem 7: 05/25/20 18:00 05/25/20 18:00 Assessment and Plan Plan: Assessment: #1. Acute on chronic hypoxic and hypercapnic respiratory failure related to fluid overload, and acute COPD exacerbation. Chest x-ray showed mild subsegmental atelectasis, COVID 19 PCR was negative #2. History of COPD, on home oxygen, patient is noncompliant with home oxygen #3. Generalized pink rash on the trunk, lower extremities, back and patient states it is chronic, denies pruritus #4. Chronic and ongoing history of smoking #5. Bipolar disorder #6. Schizophrenia #7. Depression #8. Recent hospitalization in February 2020 for pneumonia #9. Chronic atrial fibrillation on Eliquis Plan: Continue diuretics, patient is diuresing, she sounds and looks better, continue steroids, can be transitioned to oral steroids, clinically she is stable, no worsening dyspnea, FiO2 is down to 4 L, continue weaning FiO2 to keep O2 sat at 88% or better. Vital signs have been stable overnight, no fever or chills, patient is stable for discharge back to the [facility] home today, and she can resume her home dose of Lasix I performed a history & physical examination of the patient and discussed their management with my nurse practitioner, Hermelinda Blake. I reviewed the nurse practitioner's note and agree with the documented findings and plan of care. Lung sounds are positive for diminished breath sounds. The findings and the impression was discussed with the patient. I attest to the documentation by the nurse practitioner. Time with Patient: Less than 30
--- NOTE | 2020-05-28 16:58 | P.DS ---
Providers Date of admission: 05/27/20 02:09 Expected date of discharge: 05/27/20 Attending physician: Bo Dior Consults: 05/25/20 20:22 Consult Physician Routine Consulting Provider: Cherelle Kumar Consult Reason/Comments: hypercarbia Do you want consulting provider notified?: Yes Primary care physician: [facility] Course: Chief Complaint: Short of breath History of presenting complaint: This is a 74-year-old patient who is a resident of [facility]. Patient's brother Bharath is the legal guardian. Chronic stable medical conditions include schizophrenia, hyperlipidemia, persistent atrial fibrillation, chronic urinary incontinence. Patient was sent in from the assisted for having last few days of increasing lethargy, excessive sleeping hypoxia. Patient has prescribed oxygen have been has been noncompliance. Patient was somewhat confused in the ER. This morning patient also lethargic. Arousable but easily dozes off. Any questions she says she is fine. But also short of breath. Not in any distress. But short of breath. Admitted with bilateral basal pneumonia, acute hypoxic and hypercarbic respiratory failure, acute COPD exacerbation, acute hypoxic encephalopathy with delirium. Patient was started ON DuoNeb, IV Solu-Medrol, IV ceftriaxone. Today-patient awake. But short of breath. Insisting on going home. Tried counseling about smoking but would like to do the same. Does not want to stay back. Discussed with Dr. Kumar. will be sent home on steroids. Discussion and discharge planning more than 35 minutes Consultation: Dr. Kumar-pulmonary Past medical history to include: COPD, hyperlipidemia bipolar, schizophrenia, home oxygen, urinary incontinence, atrial fibrillation Social history: Smoking for 48 years. One pack a day. No alcohol. Resides at [facility]. Patient's brother Bharath is the legal guardian. Physical examination: VITAL SIGNS: 98.5, 100, 19, 116/78, 92% on 4 L GENERAL: BMI 42.9, sitting up in bed, awake, EYES: Pupils equal. Conjunctiva normal. HEENT: External appearance of nose and ears normal, oral cavity dry NECK: JVD unable to assess; masses not palpable. HEART: First and second heart sounds are normal; no edema. LUNGS:[ Respiratory rate increased, decreased breath sounds. Wheezing ABDOMEN: Soft, nontender, liver spleen not palpable, no masses palpable. PSYCH: AO 3, mood and affect anxious INVESTIGATIONS, reviewed in the clinical context: May 19: Chest [id number]. Pulmonary venous hypertension and interstitial prominence. Cardiomegaly. White count 10.7 hemoglobin 16.8 potassium 5.1 creatinine 0.9 venous blood gas: PCO2 78 bicarb of 38 Coronavirus [PCR]-not detected UA-showing trace protein Chest x-ray film personally reviewed by me-portable: Some basilar infiltrates Assessment: -Suspect bilateral basal Pneumonia, suspect gram-negative organism POA F and better -Acute hypoxic and hypercarbic respiratory failure -Acute COPD exacerbation in a smoker -Chronic nicotine dependence patient cigarette smoker -Schizophrenia -Hyperlipidemia -Persistent atrial fibrillation on eliquis -Chronic urinary incontinence -Acute hypoxic encephalopathy with delirium, POA-improved Disposition: Home Patient Condition at Discharge: Undetermined Plan - Discharge Summary New Discharge Prescriptions: New Atorvastatin Calcium [Lipitor] 40 mg PO HS #30 tablet predniSONE 10 mg PO DAILY #30 tab Continue Escitalopram [Lexapro] 20 mg PO DAILY@0800 Guaifenesin/Dextromethorphan [Robitussin Cough-Chest Dm Liq] 10 ml PO QID PRN PRN Reason: Cough Nystatin/Triamcin [Nystatin-Triamcinolone Cream] 1 applicate TOPICAL BID PRN PRN Reason: Skin Irritation Mirabegron [Myrbetriq] 25 mg PO DAILY@0800 Metoprolol Tartrate [Lopressor] 25 mg PO BID@0800,1600 Loperamide [Imodium] 2 mg PO QID PRN PRN Reason: Diarrhea Hydrocortisone Cream [Hydrocortisone 2.5% Cream] 1 applic TOPICAL BID@799,1999 Furosemide [Lasix] 40 mg PO DAILY@0800 Apixaban [Eliquis] 5 mg PO BID@799,1999 Cholecalciferol [Vitamin D3 (25 Mcg = 1000 Iu)] 50 mcg PO DAILY@0800 Potassium Chloride ER [K-Dur 10] 10 meq PO DAILY@0800 Ipratropium-Albuterol Nebulize [Duoneb 0.5 mg-3 mg/3 ml Soln] 3 ml INHALATION RT-QID Atorvastatin [Lipitor] 40 mg PO HS@1999 Discontinued Simvastatin 80 mg PO HS@1999 Discharge Medication List Escitalopram [Lexapro] 20 mg PO DAILY@0800 08/07/15 [History] Apixaban [Eliquis] 5 mg PO BID@0800,199903/11/20 [History] Furosemide [Lasix] 40 mg PO DAILY@0803/11/20 [History] Guaifenesin/Dextromethorphan [Robitussin Cough-Chest Dm Liq] 10 ml PO QID PRN 03/11/20 [History] Hydrocortisone Cream [Hydrocortisone 2.5% Cream] 1 applic TOPICAL BID@08,199903/11/20 [History] Loperamide [Imodium] 2 mg PO QID PRN 03/11/20 [History] Metoprolol Tartrate [Lopressor] 25 mg PO BID@0800,159903/11/20 [History] Mirabegron [Myrbetriq] 25 mg PO DAILY@0803/11/20 [History] Nystatin/Triamcin [Nystatin-Triamcinolone Cream] 1 applicate TOPICAL BID PRN 03/11/20 [History] Atorvastatin [Lipitor] 40 mg PO HS@199905/25/20 [History] Cholecalciferol [Vitamin D3 (25 Mcg = 1000 Iu)] 50 mcg PO DAILY@0805/25/20 [History] Ipratropium-Albuterol Nebulize [Duoneb 0.5 mg-3 mg/3 ml Soln] 3 ml INHALATION RT-QID 05/25/20 [History] Potassium Chloride ER [K-Dur 10] 10 meq PO DAILY@0805/25/20 [History] Atorvastatin Calcium [Lipitor] 40 mg PO HS #30 tablet 05/27/20 [Rx] predniSONE 10 mg PO DAILY #30 tab 05/27/20 [Rx] Follow up Appointment(s)/Referral(s): Cherelle Kumar MD [STAFF PHYSICIAN] - 06/11/20 2:15 pm (appointment made 06/11/20 @ 2:15 with Chidi Andrew MD [Primary Care Provider] - 1-2 days (office will call her tomorrow with an appointment ) Patient Instructions/Handouts: How to Stop Smoking (DC), COPD (Chronic Obstructive Pulmonary Disease) (GEN) Discharge Disposition: TRANSFER TO SNF/ECF
== END 2020-05-27 13:15 | DRG 189 ==
LOC: EC 17:38 → 6NMEDSUR 20:21 → OBSVTOIN 05-27 02:09
PROVIDERS: ADMIT Hospitalist; ATTEND Hospitalist
DX: J96.22 Acute and chronic respiratory failure with hypercapnia (principal); G93.41 Metabolic encephalopathy; J44.1 Chronic obstructive pulmonary disease with (acute) exacerbation; E87.2 Acidosis; G93.1 Anoxic brain damage, not elsewhere classified; I48.19 Other persistent atrial fibrillation; J98.11 Atelectasis; E46 Unspecified protein-calorie malnutrition; Z68.41 Body mass index [BMI] 40.0-44.9, adult; L03.311 Cellulitis of abdominal wall; J96.21 Acute and chronic respiratory failure with hypoxia; I11.9 Hypertensive heart disease without heart failure; D72.829 Elevated white blood cell count, unspecified; E11.9 Type 2 diabetes mellitus without complications; E78.5 Hyperlipidemia, unspecified; E87.70 Fluid overload, unspecified; F17.210 Nicotine dependence, cigarettes, uncomplicated; F20.9 Schizophrenia, unspecified; F31.9 Bipolar disorder, unspecified; R32 Unspecified urinary incontinence; Z20.822 Contact with and (suspected) exposure to COVID-19; Z79.01 Long term (current) use of anticoagulants; Z79.899 Other long term (current) drug therapy; Z91.19 Patient's noncompliance with other medical treatment and regimen; Z99.81 Dependence on supplemental oxygen; D64.9 Anemia, unspecified; R21 Rash and other nonspecific skin eruption; Z98.51 Tubal ligation status
CPT/HCPCS: 36415; 71045; 80053; 80320; 81003; 82140; 82803; 83735; 83880; 84443; 84484; 85025; 85610; 85730; 87635; 93005; 94640; 94760; 96374; 99285

== ENCOUNTER → 2023-12-13 | Outpatient (CLI) | payer MEDICARE, OTHER | END | disposition home or self-care (01) | LOC: LABPRL 12:00 | PROVIDERS: ATTEND Internal Medicine | DX: I50.31 Acute diastolic (congestive) heart failure (principal); E78.5 Hyperlipidemia, unspecified; J44.9 Chronic obstructive pulmonary disease, unspecified; E87.6 Hypokalemia; E55.9 Vitamin D deficiency, unspecified | CPT/HCPCS: 80061; 82306; 83036 ==